=== PATIENT | male | born 1950 | race Caucasian/White ===

== ENCOUNTER → 2017-11-02 09:43 | Outpatient (CLI) | payer MEDICARE, SELFPAY ==
[2017-11-02 12:42] LABS: Absolute Lymphocyte Count 2.71 X10^3/ul (0.83-4.51); Absolute Neutrophil Count 5.1 X10^3/uL (2.0-7.7); Basophil# 0.06 X10^3/uL; Basophil% 0.6 % (0-1); Eosinophil# 0.15 X10^3/uL; Eosinophils% 1.6 % (0-5); Hematocrit 41.1 % (40-54); Hemoglobin 14.5 g/dl (13.0-16.5); Lymphocyte # 2.71 X10^3/ul (4.0); Lymphocyte % 28.6 % (19-41); Mean Corp Hgb Conc 35.3 g/gl (32-36); Mean Corpuscular Hgb 30.3 pg (27.0-32.0); Mean Platelet Vol. 10.8 fl (6.2-12.0); Monocyte# 1.37 X10^3/uL; Monocyte% 14.4 % (0-10); Neutrophil # 5.13 X10^3/uL (2.7-7.7); Neutrophil % 54.1 % (47-70); Platelet Count 251 K/mm3 (150-450); RBC Distribution Width CV 13.2 % (11.6-14.6); RBC Distribution Width SD 40.7 fl (35.1-43.9); Red Blood Count 4.78 M/mm3 (4.6-6.2); White Blood Count 9.5 K/mm3 (4.4-11.0)
[2017-11-02 12:48] LABS: POSITIVE COUNT NO; POSITIVE DIFFERENTIAL NO; POSITIVE MORPHOLOGY NO
[2017-11-02 13:06] LABS: ALB/GLOB Ratio 1.1 RATIO (0.9-2.4); AST(SGOT) 28 U/L (15-37); Alanine Aminotransfer ALT/SGPT 28 U/L (16-61); Albumin, Serum 3.9 g/dL (3.2-5.0); Alkaline Phosphatase 53 U/L (45-117); Anion Gap 7 (5-15); BUN 21 mg/dL (7-18); BUN/Creat Ratio 25.3 RATIO (10-20); Calcium,Total 9.1 mg/dL (8.5-10.1); Chloride 91 mmol/L (98-107); Creatinine, Serum 0.83 mg/dL (0.70-1.30); EST Glomerular Filtration Rate 98 mL/min (>60); Est Glom Filt Rate - Afr Amer 118 mL/min (>60); Globulin 3.7 g/dL (2.2-4.2); Glucose 97 mg/dL (74-106); Potassium 4.3 mmol/L (3.5-5.1); Protein, Total 7.6 g/dL (6.4-8.2); Sodium Level 127 mmol/L (136-145); Thyroid Stim Hormone (TSH) 0.45 uIU/mL (0.358-3.74)
[2017-11-03 10:00] LABS: Vitamin D,25 Hydroxy 14.7 ng/mL (29.95-100.01)
== END ==
PROVIDERS: Family Provider Family Medicine Geriatric Medicine; PCP Family Medicine Geriatric Medicine; Visit Provider Family Medicine Geriatric Medicine
DX: E11.9 Type 2 diabetes mellitus without complications (principal); E55.9 Vitamin D deficiency, unspecified; I10 Essential (primary) hypertension
CPT/HCPCS: 36415; 80053; 82306; 84443; 85025

== ENCOUNTER → 2017-12-14 14:46 | Outpatient (CLI) | payer MEDICARE, MEDICAID, SELFPAY ==
--- NOTE | 2017-12-14 15:16 | US_ITS ---
STUDY: THYROID ULTRASOUND REASON FOR EXAM: Male, 67 years old. Thyroid nodules TECHNIQUE: Ultrasound evaluation of the thyroid was performed with real-time and static alexis-scale imaging. COMPARISON: 11.09.16. FINDINGS: RIGHT LOBE: The right lobe of the thyroid gland measures 5.2 x 2.3 x 2.4 cm. There is a homogeneous echotexture. Hypoechoic nodule noted measuring 7.8 x 9.2 x 5.2 mm. The lesion is cystic with regular margins and austin nodular doppler flow. Solid /cystic nodule noted measuring 5.4 x 5.7 x 5.3 mm. Solid /cystic nodule noted measuring 9.2 x 9.5 x 9.6 mm. This contains calcifications. Cystic nodule noted measuring 5.3 x 2.4 x 7.1 mm. LEFT LOBE: The left lobe of the thyroid gland measures 5.3 x 1.8 x 2.6 cm. There is a homogeneous echotexture. Hypoechoic nodule in the midpole measuring 6 x 5 x 3 mm. The lesion is cystic with regular margins and austin nodular doppler flow. ISTHMUS: The isthmus measures 4 mm. US/Thyroid IMPRESSION: Stable left thyroid nodule. Since the prior study, the right thyroid nodules have slightly enlarged in size. Electronically Signed: Lavon Magallon MD at 19:42 EDT , Service support ,
== END ==
PROVIDERS: Family Provider Family Medicine Geriatric Medicine; PCP Family Medicine Geriatric Medicine; Visit Provider Family Medicine Geriatric Medicine
DX: E04.1 Nontoxic single thyroid nodule (principal)
CPT/HCPCS: 76536

== ENCOUNTER → 2018-05-03 13:52 | Outpatient (CLI) | payer MEDICARE, SELFPAY ==
[2018-05-03 17:16] LABS: Absolute Lymphocyte Count 2.44 X10^3/ul (0.83-4.51); Absolute Neutrophil Count 4.6 X10^3/uL (2.0-7.7); Basophil# 0.04 X10^3/uL; Basophil% 0.5 % (0-1); Eosinophil# 0.22 X10^3/uL; Eosinophils% 2.7 % (0-5); Hematocrit 40.4 % (40-54); Hemoglobin 13.7 g/dl (13.0-16.5); Lymphocyte # 2.44 X10^3/ul (4.0); Lymphocyte % 29.4 % (19-41); Mean Corp Hgb Conc 33.9 g/gl (32-36); Mean Corpuscular Hgb 29.6 pg (27.0-32.0); Mean Corpuscular Volume 87.3 fL (80-94); Mean Platelet Vol. 10.7 fl (6.2-12.0); Monocyte# 0.93 X10^3/uL; Monocyte% 11.2 % (0-10); Neutrophil # 4.61 X10^3/uL (2.7-7.7); Neutrophil % 55.6 % (47-70); Platelet Count 241 K/mm3 (150-450); RBC Distribution Width CV 13.5 % (11.6-14.6); RBC Distribution Width SD 42.1 fl (35.1-43.9); Red Blood Count 4.63 M/mm3 (4.6-6.2); White Blood Count 8.3 K/mm3 (4.4-11.0)
[2018-05-03 17:30] LABS: POSITIVE COUNT NO; POSITIVE DIFFERENTIAL NO; POSITIVE MORPHOLOGY NO
[2018-05-03 17:35] LABS: BUN 16 mg/dL (7-18); Creatinine, Serum 0.82 mg/dL (0.70-1.30); EST Glomerular Filtration Rate 98 mL/min (>60); Glucose 122 mg/dL (74-106)
[2018-05-03 17:36] LABS: AST(SGOT) 29 U/L (15-37); Alanine Aminotransfer ALT/SGPT 29 U/L (16-61); Albumin, Serum 3.6 g/dL (3.2-5.0); Alkaline Phosphatase 53 U/L (45-117); Anion Gap 11 (5-15); BUN/Creat Ratio 19.4 RATIO (10-20); Calcium,Total 8.5 mg/dL (8.5-10.1); Chloride 95 mmol/L (98-107); Est Glom Filt Rate - Afr Amer 119 mL/min (>60); Globulin 3.6 g/dL (2.2-4.2); PSA,Total - Annual Screen 0.82 ng/mL (0.00-4.00); Potassium 4.2 mmol/L (3.5-5.1); Protein, Total 7.2 g/dL (6.4-8.2); Sodium Level 135 mmol/L (136-145); Thyroid Stim Hormone (TSH) 0.39 uIU/mL (0.358-3.74)
[2018-05-03 17:40] LABS: Vitamin D,25 Hydroxy 12.8 ng/mL (29.95-100.01)
== END ==
PROVIDERS: Family Provider Family Medicine Geriatric Medicine; PCP Family Medicine Geriatric Medicine; Visit Provider Family Medicine Geriatric Medicine
DX: E11.9 Type 2 diabetes mellitus without complications (principal); E55.9 Vitamin D deficiency, unspecified; I10 Essential (primary) hypertension; Z12.5 Encounter for screening for malignant neoplasm of prostate
CPT/HCPCS: 36415; 80053; 82306; 84153; 84443; 85025; G0103

== ENCOUNTER 2018-07-09 12:12 | Emergency (ER) | payer MEDICARE, MEDICAID, SELFPAY ==
[2018-07-09 12:13] VITALS: BP 161/83; PULSE 86; RESP 17; TEMP 36.5; O2SAT 97; BMI 29.6
--- NOTE | 2018-07-09 12:37 | ED.VISSUMM ---
- ER Visit Summary Date of Service: 07/09/18 Chief Complaint: Left hand laceration History of Present Illness: The patient is a 68 M history of tdd-okpqkwm-jimnceaee diabetes and hypertension. Patient is right-hand dominant. He was carrying and throwing something away in the trash when they believe a can lacerated the palm of his left hand just proximal to his left small finger. This occurred within the last hour. He is completely unsure when his last tetanus shot was and thinks it may have been 10 years or longer and wants to be updated. No other injuries. Physical Examination: Appearing older male. Vital signs are stable and afebrile. H EENT exam unremarkable. Neck nontender. Lungs there to auscultation bilaterally. Heart regular rhythm no murmur. Abdomen soft nontender. Extremities moves all 4. Neurovascular intact. The palm of his left hand just proximal to the metacarpal phalangeal joint is a V-shaped 4 cm laceration that involves the skin and subcu tissue. There is mild oozing of blood. No pulsatile bleeding. No foreign body. He has full flexion extension all digits of the hand. There is no bony deformity. There is no involvement of the joint. He has normal cap refill intact sensation all digits. This will need to be repaired. Test Results: None Emergency Department Course and Treatment: Tetanus updated. Procedure note: Left hand palmar laceration V-shaped proximal to the left small finger MCP. Approximately 4 cm in length. Locally anesthetized with lidocaine. Cleaned with Shur-Clens washed with saline. Explored. No foreign body noted. Closed using 4 simple interrupted 4-0 Ethilon sutures. Proper hemostasis and wound closure obtained. Patient tolerated procedure well. Nurses will clean and dress the wound. Treatment Plan: Wound care. Suture removal in 10 days. Return if any signs of infection. Disposition: Discharge Impression: Left hand V-shaped laceration of 4 cm with ER repair Tetanus updated This note was generated with [employer] dictation software. It may contain incorrect words, spelling, and punctuation that were not noted in review of the chart prior to signing ED Disposition - Plan for ED Patient: Disposition: Home or Assisted Living Instructions: ED Laceration Hand Referrals: Russell Koenig Chi, MD [Primary Care Provider] - 10 Day for suture removal Additional Instructions: Keep wound clean. And dry. May get wet but then dry thoroughly. Apply antibiotic ointment daily. Tylenol or Motrin for pain. Suture removal in 10 days. Return if any signs of infection such as pus, redness or significant swelling or fever.
--- NOTE | 2018-07-09 12:40 | ED.DEP ---
ED Disposition - Plan for ED Patient: Disposition: Home or Assisted Living Instructions: ED Laceration Hand Prescriptions: Acetaminophen [Tylenol Extra Strength] 500 mg PO Q6H PRN PRN #20 tab PRN Reason: Pain Referrals: Russell Koenig Chi, MD [Primary Care Provider] - 10 Day for suture removal Additional Instructions: Keep wound clean. And dry. May get wet but then dry thoroughly. Apply antibiotic ointment daily. Tylenol or Motrin for pain. Suture removal in 10 days. Return if any signs of infection such as pus, redness or significant swelling or fever.
[2018-07-09] MEDS: Diphth,Pertuss(Acell),Tet Vac 0.5 ML Vial IM (13:00)
== END 2018-07-09 14:49 | disposition home or self-care (01) ==
LOC: ED 13:10
PROVIDERS: Emergency Provider Emergency Medicine; Family Provider Family Medicine Geriatric Medicine; PCP Family Medicine Geriatric Medicine
DX: S61.412A Laceration without foreign body of left hand, initial encounter (principal); W45.8XXA Other foreign body or object entering through skin, initial encounter; Y93.89 Activity, other specified; Y92.9 Unspecified place or not applicable; I25.2 Old myocardial infarction; I10 Essential (primary) hypertension; E11.9 Type 2 diabetes mellitus without complications; Z79.899 Other long term (current) drug therapy; Z87.891 Personal history of nicotine dependence
CPT/HCPCS: 12002; 90715; 99283

== ENCOUNTER → 2018-11-01 | Outpatient (CLI) | payer MEDICARE, SELFPAY ==
[2018-11-01 12:24] LABS: Absolute Lymphocyte Count 2.08 X10^3/ul (0.83-4.51); Absolute Neutrophil Count 4.8 X10^3/uL (2.0-7.7); Basophil# 0.05 X10^3/uL; Basophil% 0.6 % (0-1); Eosinophil# 0.13 X10^3/uL; Eosinophils% 1.6 % (0-5); Hematocrit 40.7 % (40-54); Lymphocyte # 2.08 X10^3/ul (4.0); Lymphocyte % 25.9 % (19-41); Mean Corp Hgb Conc 34.4 g/gl (32-36); Mean Corpuscular Hgb 29.4 pg (27.0-32.0); Mean Corpuscular Volume 85.3 fL (80-94); Mean Platelet Vol. 10.5 fl (6.2-12.0); Monocyte% 11.2 % (0-10); Neutrophil # 4.84 X10^3/uL (2.7-7.7); Neutrophil % 60.3 % (47-70); Platelet Count 232 K/mm3 (150-450); RBC Distribution Width CV 13.4 % (11.6-14.6); RBC Distribution Width SD 41.8 fl (35.1-43.9); Red Blood Count 4.77 M/mm3 (4.6-6.2)
[2018-11-01 12:33] LABS: POSITIVE COUNT NO; POSITIVE DIFFERENTIAL NO; POSITIVE MORPHOLOGY NO
[2018-11-01 12:36] LABS: Vitamin D,25 Hydroxy 13.8 ng/mL (29.95-100.01)
[2018-11-01 12:44] LABS: ALB/GLOB Ratio 1.1 RATIO (0.9-2.4); AST(SGOT) 23 U/L (15-37); Alanine Aminotransfer ALT/SGPT 23 U/L (16-61); Albumin, Serum 3.8 g/dL (3.2-5.0); Alkaline Phosphatase 58 U/L (45-117); Anion Gap 10 (5-15); BUN 20 mg/dL (7-18); Chloride 94 mmol/L (98-107); Creatinine, Serum 0.91 mg/dL (0.70-1.30); EST Glomerular Filtration Rate 88 mL/min (>60); Est Glom Filt Rate - Afr Amer 106 mL/min (>60); Globulin 3.6 g/dL (2.2-4.2); Glucose 103 mg/dL (74-106); Potassium 4.1 mmol/L (3.5-5.1); Protein, Total 7.4 g/dL (6.4-8.2); Sodium Level 129 mmol/L (136-145); Thyroid Stim Hormone (TSH) 0.38 uIU/mL (0.358-3.74)
== END | disposition home or self-care (01) ==
LOC: POLAB3 09:24
PROVIDERS: Family Provider Family Medicine Geriatric Medicine; PCP Family Medicine Geriatric Medicine; Visit Provider Family Medicine Geriatric Medicine
DX: E11.9 Type 2 diabetes mellitus without complications (principal); E55.9 Vitamin D deficiency, unspecified; I10 Essential (primary) hypertension
CPT/HCPCS: 36415; 80053; 82306; 84443; 85025

== ENCOUNTER → 2018-11-02 11:06 | Outpatient (CLI) | payer MEDICARE, SELFPAY ==
[2018-11-02 13:02] LABS: Urine Sodium 98 mmol/L (Not Establ.)
[2018-11-02 13:08] LABS: Osmolality, Serum 273 mOsm/KG (280-301)
[2018-11-02 13:10] LABS: Osmolality, Urine 555 mOsm/KG
== END ==
PROVIDERS: Family Provider Family Medicine Geriatric Medicine; PCP Family Medicine Geriatric Medicine; Visit Provider Family Medicine Geriatric Medicine
DX: E87.1 Hypo-osmolality and hyponatremia (principal)
CPT/HCPCS: 82436; 83930; 83935; 84133; 84300

== ENCOUNTER → 2018-11-14 09:35 | Outpatient (CLI) | payer MEDICARE, SELFPAY ==
[2018-11-14 13:00] LABS: Anion Gap 5 (5-15); BUN 21 mg/dL (7-18); BUN/Creat Ratio 28.4 RATIO (10-20); Calcium,Total 9.2 mg/dL (8.5-10.1); Chloride 97 mmol/L (98-107); Creatinine, Serum 0.74 mg/dL (0.70-1.30); EST Glomerular Filtration Rate 111 mL/min (>60); Est Glom Filt Rate - Afr Amer 135 mL/min (>60); Glucose 116 mg/dL (74-106); Potassium 4.1 mmol/L (3.5-5.1); Sodium Level 131 mmol/L (136-145)
== END ==
PROVIDERS: Family Provider Family Medicine Geriatric Medicine; PCP Family Medicine Geriatric Medicine; Visit Provider Family Medicine Geriatric Medicine
DX: E87.1 Hypo-osmolality and hyponatremia (principal)
CPT/HCPCS: 36415; 80048

== ENCOUNTER → 2018-12-17 10:52 | Outpatient (CLI) | payer MEDICARE, SELFPAY ==
[2018-12-17 13:02] LABS: Anion Gap 9 (5-15); BUN 16 mg/dL (7-18); BUN/Creat Ratio 18.8 RATIO (10-20); Calcium,Total 8.7 mg/dL (8.5-10.1); Chloride 98 mmol/L (98-107); Creatinine, Serum 0.85 mg/dL (0.70-1.30); EST Glomerular Filtration Rate 95 mL/min (>60); Est Glom Filt Rate - Afr Amer 114 mL/min (>60); Glucose 137 mg/dL (74-106); Potassium 4.3 mmol/L (3.5-5.1); Sodium Level 136 mmol/L (136-145)
== END ==
PROVIDERS: Family Provider Family Medicine Geriatric Medicine; PCP Family Medicine Geriatric Medicine; Visit Provider Family Medicine Geriatric Medicine
DX: E87.1 Hypo-osmolality and hyponatremia (principal)
CPT/HCPCS: 36415; 80048

== ENCOUNTER → 2019-03-04 13:43 | Outpatient (CLI) | payer MEDICARE, SELFPAY ==
--- NOTE | 2019-03-04 13:46 | US_ITS ---
STUDY: THYROID ULTRASOUND REASON FOR EXAM: Male, 69 years old. Thyroid nodule. TECHNIQUE: Ultrasound evaluation of the thyroid was performed with real-time and static alexis-scale imaging. COMPARISON: Comparison is made with prior examination dated December 14, 2017. FINDINGS: RIGHT LOBE: The right lobe of the thyroid gland is enlarged and measures 5.3 cm x 2.2 cm x 2.7 cm. There is a homogeneous echotexture. Once again, there are 4 subcentimeter nodules in the right lobe of the thyroid area involving the upper, mid and lower poles. These are unchanged. LEFT LOBE: The left lobe of the thyroid gland is slightly enlarged and measures 5.2 cm x 2.7 cm x 2.4 cm. There is a homogeneous echotexture. Stable 6 mm x 5 mm x 4 mm hypoechoic predominantly cystic nodule in the mid pole region. ISTHMUS: The isthmus measures 5.0 mm. The regional lymph nodes are normal. US/Thyroid IMPRESSION: Stable bilateral thyroid nodules more prominent on the left side. Mild degree of thyromegaly. Electronically Signed: Urban Castillo, at 9:17 EDT , Service support ,
--- NOTE | 2019-03-04 14:23 | CT_ITS ---
STUDY: CT SOFT TISSUE NECK WITH CONTRAST REASON FOR EXAM: Male, 69 years old. Submandibular lymphadenopathy in evaluation RADIATION DOSAGE (If Supplied By Facility): CTDIvol = ( 21.16 ) mGy, DLP = ( 649.84 ) mGycm TECHNIQUE: The patient was scanned in a multi-detector CT scanner. High resolution transaxial imaging was performed following intravenous administration of IV Isovue 370 100ml. Sagittal and coronal images were reconstructed. Individualized dose optimization techniques were used for this CT. COMPARISON: None. FINDINGS: Submandibular glands are normal. Segment space is clear without masses, lymphadenopathy, fluid collections or inflammatory change. Parotid and sublingual glands are normal. Basal brain is unremarkable. Paranasal sinuses are clear. Orbits are intact. There is extensive multifocal dental disease. Pharyngeal mucosal surfaces are intact without exophytic masses. Airway is patent. There is a 1 cm hypodense posterior right thyroid lobe nodule, and 6 mm anterior nodule. Refer to ultrasonography. Jugulars and carotids are patent. There is reversal of cervical lordosis with mild age-appropriate spondylosis and thecal sac compression at C5-C6 and C6-C7. Lung apices are clear. CT/Soft Tissue Neck WITH Contrast IMPRESSION: 1. No cervical lymphadenopathy. No submandibular lymphadenopathy. Electronically Signed: Renata Collins, at 17:31 EDT Tel , Service support ,
[2019-03-04 14:41] LABS: CREATININE FINGERSTICK 0.8 mg/dL (0.70-1.30); EGFR FINGERSTICK > 60.0000 mL/min (>60)
== END ==
PROVIDERS: Family Provider Family Medicine Geriatric Medicine; PCP Family Medicine Geriatric Medicine; Referring Provider Family Medicine Geriatric Medicine; Visit Provider Family Medicine Geriatric Medicine
DX: E04.1 Nontoxic single thyroid nodule (principal); R59.9 Enlarged lymph nodes, unspecified
CPT/HCPCS: 70491; 76536; Q9967

== ENCOUNTER → 2019-05-20 11:00 | Outpatient (CLI) | payer MEDICARE, SELFPAY ==
--- NOTE | 2019-05-20 11:37 | RAD_ITS ---
STUDY: X-RAY - LUMBOSACRAL SPINE REASON FOR EXAM: Male, 69 years old. MULTIPLE PREVIOUS FALLS. TECHNIQUE: 6 view(s) of the lumbosacral spine were obtained. COMPARISON: None FINDINGS: Normal lumbar lordosis. There is no substantial scoliosis. There is normal alignment of the vertebrae. There is multilevel endplate spondylosis of the lumbar vertebrae. There is multi-level degenerative disc disease with multi-level disc space narrowing. Normal bilateral sacral ala, sacroiliac joints, and visualized sacrum. There is atherosclerotic calcification of the abdominal aorta without a demonstrated aneurysm. RAD/L/S Spine w Bend Min 6 Vw IMPRESSION: Degenerative changes of the spine, as detailed above. Electronically Signed: Urban Castillo, at 12:54 EST , Service support ,
[2019-05-20 12:42] LABS: Absolute Lymphocyte Count 2.54 X10^3/uL (0.83-4.51); Absolute Neutrophil Count 5.5 X10^3/uL (2.0-7.7); Basophil# 0.07 X10^3/uL; Basophil% 0.7 % (0-1); Eosinophil# 0.18 X10^3/uL; Eosinophils% 1.8 % (0-5); Hematocrit 38.6 % (40-54); Hemoglobin 12.9 g/dL (13.0-16.5); Lymphocyte # 2.54 X10^3/ul (4.0); Lymphocyte % 26.1 % (19-41); Mean Corp Hgb Conc 33.4 g/dL (32-36); Mean Corpuscular Hgb 28.4 pg (27.0-32.0); Mean Corpuscular Volume 84.8 fL (80-94); Mean Platelet Vol. 10.8 fl (6.2-12.0); Monocyte# 1.39 X10^3/uL; Monocyte% 14.3 % (0-10); NRBC Flagged by Analyzer 0 % (0-5); Neutrophil # 5.49 X10^3/uL (2.7-7.7); Neutrophil % 56.5 % (47-70); Platelet Count 239 K/mm3 (150-450); RBC Distribution Width CV 12.9 % (11.6-14.6); RBC Distribution Width SD 39.9 fl (35.1-43.9); Red Blood Count 4.55 M/mm3 (4.6-6.2); White Blood Count 9.7 K/mm3 (4.4-11.0)
[2019-05-20 13:06] LABS: Vitamin D,25 Hydroxy 19.5 ng/mL (29.95-100.01)
[2019-05-20 13:14] LABS: AST(SGOT) 22 U/L (15-37); Alanine Aminotransfer ALT/SGPT 27 U/L (16-61); Albumin, Serum 3.7 g/dL (3.2-5.0); Alkaline Phosphatase 51 U/L (45-117); Anion Gap 7 (5-15); BUN 24 mg/dL (7-18); BUN/Creat Ratio 29.3 RATIO (10-20); Chloride 92 mmol/L (98-107); Creatinine, Serum 0.82 mg/dL (0.70-1.30); EST Glomerular Filtration Rate 99 mL/min (>60); Est Glom Filt Rate - Afr Amer 119 mL/min (>60); Globulin 3.6 g/dL (2.2-4.2); Glucose 106 mg/dL (74-106); Potassium 4.3 mmol/L (3.5-5.1); Protein, Total 7.3 g/dL (6.4-8.2); Sodium Level 127 mmol/L (136-145); Thyroid Stim Hormone (TSH) 0.47 uIU/mL (0.358-3.74)
== END ==
PROVIDERS: Family Provider Family Medicine Geriatric Medicine; PCP Family Medicine Geriatric Medicine; Referring Provider Family Medicine Geriatric Medicine; Visit Provider Family Medicine Geriatric Medicine
DX: E11.9 Type 2 diabetes mellitus without complications (principal); E55.9 Vitamin D deficiency, unspecified; I10 Essential (primary) hypertension; Z12.5 Encounter for screening for malignant neoplasm of prostate; R29.6 Repeated falls
CPT/HCPCS: 36415; 72114; 80053; 82306; 84153; 84443; 85025; G0103

== ENCOUNTER 2019-05-20 18:00 | Emergency (ER) | payer MEDICARE, SELFPAY ==
[2019-05-20 18:01] VITALS: PULSE 109; RESP 18; TEMP 36.6; O2SAT 96; BMI 25.2
[2019-05-20] MEDS: MethylPREDNISolone 125 MG/2 ML Vial IV (18:18)
[2019-05-20] MEDS: DiphenhydrAMINE 50 MG/ML Syringe IV (18:18)
[2019-05-20] MEDS: Famotidine 200 MG/20 ML MDV 20 MG in 0.9% Normal Saline (Pres. free 8 ML 300 MG IV (18:30)
[2019-05-20 19:00] VITALS: BP 144/76; PULSE 98; RESP 18; O2SAT 97
--- NOTE | 2019-05-20 19:13 | ED.DCSUM_ITS ---
History of Present Illness Chief Complaint: Allergic Reaction Informant: Patient, Nursing Unit Coordinator Onset: Today Narrative: Patient is a 69-year-old male presenting from skilled nursing for concern of allergic reaction. Patient developed an urticarial rash today and felt that he was having a hard time swallowing. He was eating soup and drinking soda when this started. Is not have a known history of any allergies. He did have a doctor's visit today but we are not aware of him receiving any new medications. Patient states the rash is itchy. He currently denies any difficulty swallowing. He denies any difficulty breathing. No vomiting or diarrhea. No other complaints at this time. Past Medical History - Allergies and Home Meds Allergies/Adverse Reactions: Allergies No Known Allergies Allergy (Verified 07/09/18 12:13) Primary Care Physician: Russell Koenig Chi, MD [Primary Care Provider] - Past Medical History: - - Diabetes, anxiety, hypertension, psychiatric disorder Surgical History: no surgical history Lives: - - [facility] Smoking Status: Former smoker Review of Systems General: Denies: Chills, Fever, Sweats Eyes: Denies: Visual changes - bilaterally, Diplopia ENT: Reports: Sore throat. Denies: Rhinorrhea Cardiovascular: Denies: Chest pain, Palpitations Respiratory: Denies: Dyspnea, Cough, Dyspnea on exertion Gastrointestinal: Denies: Abdominal pain, Nausea, Vomiting, Diarrhea, Melena, Hematochezia Genitourinary: Denies: Dysuria, Hematuria, Frequency Musculoskeletal: Denies: Back pain, Extremity Pain Skin: Reports: Rash. Denies: Wounds Neurological: Denies: Headache, Weakness, Numbness Physical Exam Vital Signs/Narrative: Vital Signs Temp Pulse Resp Pulse Ox 05/20/19 18:01 97.9 F 109 H 18 96 Inital Vital Signs reviewed: Yes General: Well nourished, Well developed, No Acute Distress Head: Normocephalic, Atraumatic Eyes: Perrl, EOMI ENT: Moist mucous membranes, No rhinorrhea, TM's clear, - - Normal oropharynx with no soft tissue swelling Neck: Supple, Nontender Cardiovascular: Regular rate, Regular rhythm, No murmurs Respiratory: No distress, CTA bilaterally, Chest nontender. Negative for: Wheezing Abdomen: Soft, Nontender, Nondistended, Normal bowel sounds Back: Nontender, Normal Inspection Extremities: Nontender, No edema Skin: Normal color, Rash - Diffuse maculopapular most pronounced on arms extending up to axilla as well as around neck Neurological: Alert, Oriented x3, Cranial nerves II-XII grossly intact, Normal Strength, Normal Sensation Psychological: Normal affect, Normal Mood Diagnostic/Tx/Re-eval - Medical Decision Making Patient is evaluated for an allergic reaction. He has hives. He feels that he is having trouble swallowing. Patient is handling his secretions and his voice is normal. Patient is given cocktail including Benadryl, Pepcid and Solu- Medrol. He does not have wheezing or other signs of respiratory involvement. I do not suspect anaphylaxis at this time. He is not given epinephrine. Patient is monitored for some time and improves. He will be discharged home on a course of prednisone. The exact cause of his allergic reaction is not clear. Patient is discharged back to his skilled nursing. Patient is counseled on signs and symptoms requiring return to the emergency room. Patient verbalizes agreement and understand this plan. Patient discharged home in stable and improved condition. ED Disposition - Plan for ED Patient: Disposition: Home or Assisted Living Diagnosis: Allergic reaction, Hives Instructions: ALLERGIC REACTION, Other (General), Hives Prescriptions: Prednisone [Deltasone] 40 mg PO DAILY #10 tab Prescription Printed Referrals: Russell Koenig Chi, MD [Primary Care Provider] - Additional Instructions: You appear to have had an allergic reaction today. Is not clear what the cause is. Please follow-up with your primary care doctor for further allergy testing.
[2019-05-20 20:00] VITALS: BP 140/81; PULSE 103; RESP 20; O2SAT 97
[2019-05-20 20:43] VITALS: BP 140/82; PULSE 99; RESP 16; O2SAT 99
== END 2019-05-20 20:44 | disposition home or self-care (01) ==
PROVIDERS: Emergency Provider Emergency Medicine; Family Provider Family Medicine Geriatric Medicine; PCP Family Medicine Geriatric Medicine
DX: L50.0 Allergic urticaria (principal); Z87.891 Personal history of nicotine dependence; I10 Essential (primary) hypertension; E11.9 Type 2 diabetes mellitus without complications; F41.9 Anxiety disorder, unspecified; E55.9 Vitamin D deficiency, unspecified; R29.6 Repeated falls; Z12.5 Encounter for screening for malignant neoplasm of prostate; Z79.84 Long term (current) use of oral hypoglycemic drugs
CPT/HCPCS: 36415; 72114; 80053; 82306; 84153; 84443; 85025; 96365; 96366; 96375; 99284; A4216; G0103; J3490

== ENCOUNTER → 2019-05-22 11:46 | Outpatient (CLI) | payer MEDICARE, SELFPAY ==
[2019-05-20 18:01] VITALS: BMI 25.2
[2019-05-25 03:06] LABS: Almond 0.73 kU/L (Class II); Alternaria tenuis <0.10 kU/L (Class 0); Ash, White 0.92 kU/L (Class II); Aspergillus fumigatus <0.10 kU/L (Class 0); Barley, Whole Grain 0.67 kU/L (Class II); Beef <0.10 kU/L (Class 0); Bermuda Grass 0.67 kU/L (Class II); Birch 0.59 kU/L (Class II); Black Walnut 0.72 kU/L (Class II); Carrot 0.65 kU/L (Class II); Casein <0.10 kU/L (Class 0); Cashew 0.23 kU/L (Class 0/I); Cat Hair / Dander,Stand <0.10 kU/L (Class 0); Cedar, Mountain 0.93 kU/L (Class II); Chicken 0.23 kU/L (Class 0/I); Chocolate <0.10 kU/L (Class 0); Cladosporium herbarum <0.10 kU/L (Class 0); Clam 3.16 kU/L (Class III); Cockroach, American 4.61 kU/L (Class IV); Codfish <0.10 kU/L (Class 0); Corn 0.66 kU/L (Class II); Cottonwood 1.02 kU/L (Class II); Crab 5.86 kU/L (Class IV); D farinae Mite 3.27 kU/L (Class III); D pteronyssinus 2.11 kU/L (Class III); Dog Epithelia <0.10 kU/L (Class 0); Egg, White 0.32 kU/L (Class I); Egg, Yolk 0.13 kU/L (Class 0/I); Elm, American White 0.78 kU/L (Class II); Garlic 0.81 kU/L (Class II); Gluten 0.11 kU/L (Class 0/I); Hazelnut/Filbert 0.66 kU/L (Class II); Immunoglobulin E 478 IU/mL (6-495); Lobster 4.82 kU/L (Class IV); Milk (Cow) <0.10 kU/L (Class 0); Mulberry, White 0.46 kU/L (Class I); Oak, White 0.89 kU/L (Class II); Oat 0.77 kU/L (Class II); Onion 0.84 kU/L (Class II); Orange 0.64 kU/L (Class II); Pea 0.36 kU/L (Class I); Pecan 0.11 kU/L (Class 0/I); Pigweed, Rough 0.49 kU/L (Class I); Pork <0.10 kU/L (Class 0); Potato, White 0.62 kU/L (Class II); Ragweed, Short/Common 0.78 kU/L (Class II); Rice 0.88 kU/L (Class II); Rye 0.61 kU/L (Class II); Salmon <0.10 kU/L (Class 0); Sheep Sorrel 0.59 kU/L (Class II); Shrimp 5.64 kU/L (Class IV); Strawberry 0.76 kU/L (Class II); Sycamore, American 1.03 kU/L (Class II); Timothy Grass 0.78 kU/L (Class II); Tuna 0.12 kU/L (Class 0/I); Walnut, (Food) 0.57 kU/L (Class II); Wheat 0.83 kU/L (Class II); Yeast <0.10 kU/L (Class 0)
[2019-05-25 15:29] LABS: Apple 0.43 kU/L (Class I); Peanut 0.78 kU/L (Class II)
[2019-05-25 15:30] LABS: Mouse Urine <0.10 kU/L (Class 0)
[2019-05-26 03:06] LABS: Alternaria alternata <0.10 kU/L (Class 0); Aspergillus fumigatus <0.10 kU/L (Class 0); Bahia Grass 0.66 kU/L (Class II); Banana 0.63 kU/L (Class II); Bluegrass, Kentucky 0.74 kU/L (Class II); Cat Hair/Dander, Standard <0.10 kU/L (Class 0); Cedar, Mountain 0.85 kU/L (Class II); Celery 0.67 kU/L (Class II); Cheddar Cheese <0.10 kU/L (Class 0); Cladosporium herbarum <0.10 kU/L (Class 0); Cockroach, American 1.62 kU/L (Class III); D farinae Mite 3.16 kU/L (Class III); D pteronyssinus 1.76 kU/L (Class III); Dog Epithelia <0.10 kU/L (Class 0); Elm, American White 0.72 kU/L (Class II); Hazelnut Tree 0.29 kU/L (Class 0/I); Hickory, White 0.63 kU/L (Class II); Johnson Grass 0.74 kU/L (Class II); Lactalbumin, Alpha <0.10 kU/L (Class 0); Lettuce 0.52 kU/L (Class I); Maple/Box Elder 0.86 kU/L (Class II); Mucor racemosus <0.10 kU/L (Class 0); Mugwort 0.48 kU/L (Class I); Mulberry, White 0.51 kU/L (Class I); Nettle 0.62 kU/L (Class II); Oak, White 0.76 kU/L (Class II); Peach 0.46 kU/L (Class I); Penicillium chrysogen <0.10 kU/L (Class 0); Pigweed, Rough 0.42 kU/L (Class I); Plantain, English 0.63 kU/L (Class II); Ragweed, Short/Common 0.63 kU/L (Class II); Sheep Sorrel(Dock) 0.53 kU/L (Class I); Stemphylium herbarum <0.10 kU/L (Class 0); Sweet Gum 0.73 kU/L (Class II); Sycamore, American 0.96 kU/L (Class II)
[2019-05-26 14:10] LABS: Turkey 1.21 kU/L (Class II)
== END ==
PROVIDERS: Family Provider Family Medicine Geriatric Medicine; PCP Family Medicine Geriatric Medicine; Visit Provider Family Medicine Geriatric Medicine
DX: L20.89 Other atopic dermatitis (principal)
CPT/HCPCS: 36415; 82785; 86003

== ENCOUNTER → 2019-07-01 12:00 | Outpatient (CLI) | payer MEDICARE, SELFPAY ==
[2019-07-01 12:46] LABS: Absolute Lymphocyte Count 2.08 X10^3/uL (0.83-4.51); Absolute Neutrophil Count 4.2 X10^3/uL (2.0-7.7); Basophil# 0.05 X10^3/uL; Basophil% 0.7 % (0-1); Eosinophil# 0.07 X10^3/uL; Hematocrit 38.7 % (40-54); Hemoglobin 13.3 g/dL (13.0-16.5); Lymphocyte # 2.08 X10^3/ul (4.0); Lymphocyte % 28.6 % (19-41); Mean Corp Hgb Conc 34.4 g/dL (32-36); Mean Corpuscular Hgb 28.6 pg (27.0-32.0); Mean Corpuscular Volume 83.2 fL (80-94); Mean Platelet Vol. 10.4 fl (6.2-12.0); Monocyte# 0.89 X10^3/uL; Monocyte% 12.2 % (0-10); NRBC Flagged by Analyzer 0 % (0-5); Neutrophil # 4.15 X10^3/uL (2.7-7.7); Platelet Count 259 K/mm3 (150-450); RBC Distribution Width CV 12.8 % (11.6-14.6); RBC Distribution Width SD 38.6 fl (35.1-43.9); Red Blood Count 4.65 M/mm3 (4.6-6.2); White Blood Count 7.3 K/mm3 (4.4-11.0)
[2019-07-01 13:05] LABS: Erythrocyte Sedimentation Rate 22 mm/hr (0-20)
[2019-07-01 13:17] LABS: AST(SGOT) 24 U/L (15-37); Alanine Aminotransfer ALT/SGPT 23 U/L (16-61); Albumin, Serum 3.5 g/dL (3.2-5.0); Alkaline Phosphatase 61 U/L (45-117); Anion Gap 8 (5-15); BUN 16 mg/dL (7-18); BUN/Creat Ratio 19.3 RATIO (10-20); CRP < 2.90 mg/L (0.0-3.0); Calcium,Total 8.6 mg/dL (8.5-10.1); Chloride 93 mmol/L (98-107); Creatinine, Serum 0.83 mg/dL (0.70-1.30); EST Glomerular Filtration Rate 98 mL/min (>60); Est Glom Filt Rate - Afr Amer 118 mL/min (>60); Globulin 3.6 g/dL (2.2-4.2); Glucose 120 mg/dL (74-106); Potassium 4.5 mmol/L (3.5-5.1); Protein, Total 7.1 g/dL (6.4-8.2); Sodium Level 128 mmol/L (136-145); Thyroid Stim Hormone (TSH) 0.19 uIU/mL (0.358-3.74)
[2019-07-02 11:58] LABS: T3 Uptake 41 % (33-40); T4 Free Direct 1.27 ng/dL (0.76-1.46)
== END ==
PROVIDERS: PCP Family Medicine Geriatric Medicine; Visit Provider Family Medicine Geriatric Medicine
DX: I10 Essential (primary) hypertension (principal); M35.3 Polymyalgia rheumatica
CPT/HCPCS: 36415; 80053; 84443; 85025; 85652; 86140

== ENCOUNTER → 2019-07-01 12:41 | Outpatient (CLI) | payer MEDICARE, SELFPAY ==
--- NOTE | 2019-07-01 12:44 | CT_ITS ---
STUDY: CT BRAIN WITHOUT CONTRAST REASON FOR EXAM: Male, 69 years old. APRAXIA, BALANCE ISSUES, FREQUENT FALLS, TROUBLE WITH SALES OFFICER, HX-HTN,DB RADIATION DOSAGE (If Supplied By Facility): CTDIvol = ( 60.81 ) mGy, DLP = ( 1135.5 ) mGycm TECHNIQUE: Transaxial CT imaging of the brain was performed without administration of intravenous contrast material. Individualized dose optimization techniques were used for this CT. COMPARISON: No relevant priors. FINDINGS: Normal soft tissue structures. Normal calvarium. There is mild cerebral atrophy with widening of the extra-axial spaces and ventricular dilatation. There are areas of decreased attenuation within the white matter tracts of the supratentorial brain, consistent with microvascular disease changes. Normal basal ganglia and thalami. Normal brainstem. Normal cerebellum. There is no intracranial hemorrhage. There are no findings of an acute ischemic infarction. Atherosclerotic calcification of the cavernous portions of the internal carotid arteries bilaterally. Normal visualized paranasal sinuses. CT/Brain/Head without Contrast IMPRESSION: Chronic involutional changes of the brain. Electronically Signed: Urban Castillo, at 14:07 EST , Service support ,
--- NOTE | 2019-07-01 12:57 | MRI_ITS ---
STUDY: MRI LUMBAR SPINE WITH AND WITHOUT CONTRAST REASON FOR EXAM: Male, 69 years old. FECAL INCONTENENCE APRAXIA TECHNIQUE: Standardized fat and water weighted pulse sequences were obtained in the sagittal and axial planes. IV DOTAREM 15 CC was administered for the contrast portion of the examination. COMPARISON: X-ray 05/20/2019 FINDINGS: T12-L1: Normal endplates. Normal disc height, hydration and morphology. Normal bilateral facet joints. Normal central canal and bilateral lateral recesses. Normal bilateral intervertebral neural foramina. Normal lumbar lordosis. There is no substantial scoliosis. Normal conus medullaris that terminates at the L1. L1-2: Normal endplates. Normal disc height, hydration and morphology. Normal bilateral facet joints. Normal central canal and bilateral lateral recesses. Normal bilateral intervertebral neural foramina. L2-3: Normal endplates. Normal disc height, hydration and morphology. Normal bilateral facet joints. Normal central canal and bilateral lateral recesses. Normal bilateral intervertebral neural foramina. L3-4: Normal endplates. Normal disc height, hydration and morphology. Normal bilateral facet joints. Normal central canal and bilateral lateral recesses. Normal bilateral intervertebral neural foramina. L4-5: Moderate bilateral facet hypertrophy. Moderate broad disc protrusion produces moderate spinal stenosis with mild bilateral lateral recess stenosis and moderate bilateral neural foraminal stenosis with abutment of the exiting L4 nerve roots bilaterally. Some enhancement posterior to the thecal sac may represent laminotomy. No mass effect or nerve root encasement. L5-S1: Mild broad disc protrusion produces mild spinal stenosis and mild bilateral neural foraminal stenosis. Normal visualized sacral ala. Normal visualized paraspinous soft tissue structures. MRI/Spine Lumbar W/WO Contrast IMPRESSION: Focal degenerative disc disease L4/L5 with possible postsurgical changes. Electronically Signed: Yeison Boyd MD at 16:51 EST Tel , Service support ,
== END ==
PROVIDERS: PCP Family Medicine Geriatric Medicine; Referring Provider Family Medicine Geriatric Medicine; Visit Provider Family Medicine Geriatric Medicine
DX: R48.8 Other symbolic dysfunctions (principal); R15.9 Full incontinence of feces; I10 Essential (primary) hypertension; M35.3 Polymyalgia rheumatica
CPT/HCPCS: 36415; 70450; 72158; 80053; 84439; 84443; 84479; 85025; 85652; 86140; A9575

== ENCOUNTER 2019-07-25 11:00 | Outpatient (RCR) | payer MEDICARE, SELFPAY ==
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
== END 2019-07-25 19:00 | disposition home or self-care (01) ==
LOC: PT 11:00
PROVIDERS: PCP Family Medicine Geriatric Medicine; Referring Provider Family Medicine Geriatric Medicine; Visit Provider Family Medicine Geriatric Medicine
DX: M48.061 Spinal stenosis, lumbar region without neurogenic claudication (principal)
CPT/HCPCS: 97110; 97162

== ENCOUNTER 2019-10-31 20:55 | Inpatient (IN) | payer MEDICARE, SELFPAY ==
[2019-10-31 20:59] VITALS: BP 82/51; PULSE 113; RESP 20; TEMP 37.7; O2SAT 93; BMI 27.2
[2019-10-31] MEDS: 0.9% Normal Saline 1,000 ML 1000 ML IV (21:35)
[2019-10-31 21:55] LABS: Absolute Lymphocyte Count 0.68 X10^3/uL (0.83-4.51); Absolute Neutrophil Count 13.1 X10^3/uL (2.0-7.7); Basophil# 0.05 X10^3/uL; Basophil% 0.3 % (0-1); Eosinophil# 0.02 X10^3/uL; Eosinophils% 0.1 % (0-5); Hematocrit 41.1 % (40-54); Hemoglobin 14.1 g/dL (13.0-16.5); Lymphocyte # 0.68 X10^3/ul (4.0); Lymphocyte % 4.5 % (19-41); Mean Corp Hgb Conc 34.3 g/dL (32-36); Mean Corpuscular Hgb 27.9 pg (27.0-32.0); Mean Corpuscular Volume 81.4 fL (80-94); Mean Platelet Vol. 10.4 fl (6.2-12.0); Monocyte# 1.02 X10^3/uL; Monocyte% 6.8 % (0-10); NRBC Flagged by Analyzer 0 % (0-5); Neutrophil # 13.13 X10^3/uL (2.7-7.7); Neutrophil % 87.8 % (47-70); Platelet Count 324 K/mm3 (150-450); RBC Distribution Width CV 12.9 % (11.6-14.6); RBC Distribution Width SD 38.2 fl (35.1-43.9); Red Blood Count 5.05 M/mm3 (4.6-6.2)
[2019-10-31 22:05] VITALS: BP 78/49; PULSE 96; RESP 18; TEMP 37.2; O2SAT 96
[2019-10-31 22:06] LABS: ALB/GLOB Ratio 1.1 RATIO (0.9-2.4); AST(SGOT) 23 U/L (15-37); Alanine Aminotransfer ALT/SGPT 19 U/L (16-61); Albumin, Serum 3.9 g/dL (3.2-5.0); Alkaline Phosphatase 68 U/L (45-117); Anion Gap 16 (5-15); BUN 21 mg/dL (7-18); BUN/Creat Ratio 15.1 RATIO (10-20); Chloride 93 mmol/L (98-107); Creatinine, Serum 1.39 mg/dL (0.70-1.30); EST Glomerular Filtration Rate 54 mL/min (>60); Est Glom Filt Rate - Afr Amer 65 mL/min (>60); Estimated Creatinine Clearance 46.23 ml/min; Globulin 3.6 g/dL (2.2-4.2); Glucose 192 mg/dL (74-106); Protein, Total 7.5 g/dL (6.4-8.2); Sodium Level 129 mmol/L (136-145)
--- NOTE | 2019-10-31 22:10 | EKG12_ITS ---
Test Reason : WEAKNESS Blood Pressure : / mmHG Vent. Rate : 097 BPM Atrial Rate : 097 BPM P-R Int : 208 ms QRS Dur : 086 ms QT Int : 338 ms P-R-T Axes : 045 048 052 degrees QTc Int : 429 ms Normal sinus rhythm Normal ECG Confirmed by ANITA SNYDER MD ([id number]), desk editor SHERRILL LANDAVERDE ([id number]) on 11/05/2019 10:47:14 AM Referred By: NORA/JASON Confirmed By:ANITA SNYDER MD
[2019-10-31 22:13] VITALS: BP 100/62; TEMP 37.2; O2SAT 94
[2019-10-31 22:21] LABS: Bacteria 0 SEEN /hpf (None Seen); Mucous, Urine 0 SEEN /hpf (<or=2+); Red Blood Cells-Urine 0 SEEN /hpf (0-5); White Blood Cells 0 SEEN /hpf (0-5)
[2019-10-31 22:23] LABS: Color, Urine Yellow (Yellow); Glucose, Dipstick Normal (Normal); Ketone-Dipstick Negative (Negative); Leukocyte Esterase-Dipstick Negative /ul (Negative); Nitrite-Dipstick Negative (Negative); Occult Blood-Urine Negative /ul (Negative); Protein-Dipstick Negative (Negative); Urine Bilirubin Dipstick Negative (Negative); Urine Clarity Sl. Cloudy (Clear); Urine Urobilinogen Normal (Normal); Urine pH 6.5 (5.0 - 8.0)
--- NOTE | 2019-10-31 22:25 | RAD_ITS ---
HISTORY: Low-grade fever, low blood pressure, sepsis, weakness ADDITIONAL HISTORY: None provided. TECHNIQUE: Frontal chest radiograph. Number of images including paperwork: 1 COMPARISON: 09/22/2011 FINDINGS: LUNGS AND PLEURA: Left basilar airspace opacity. Low lung volumes. No sizable pleural effusion or pneumothorax. CARDIAC SILHOUETTE: Unremarkable. MEDIASTINUM AND JORGE: Unremarkable. UPPER ABDOMEN: Unremarkable. SKELETON AND SOFT TISSUES: No acute findings. OTHER DEVICES AND HARDWARE: None. RAD/Chest 1 View (Portable) IMPRESSION: Left basilar infiltrate concerning for pneumonia or aspiration pneumonia. at 2256 Reported and signed by: Kristin Riley MD Electronically Signed: Kristin Riley MD at 22:56 EDT Tel , Service support ,
[2019-10-31 22:30] LABS: International Normalized Ratio 1.1; Partial Thromboplast Time 21.6 Seconds (24.1-36.2); Prothrombin Time (Protime)PT. 13.3 SECONDS (11.7-14.9)
[2019-10-31 22:32] LABS: Squamous Epithelial Cells - UA 0-5 SEEN /hpf (0-5)
[2019-10-31 23:13] VITALS: BP 109/66; PULSE 94; RESP 18; TEMP 37.3; O2SAT 95
[2019-10-31 23:25] LABS: Lactic Acid 6.7 mmol/L (0.4-1.9)
[2019-11-01] VITALS (21 sets, daily range): BP systolic 113–153; BP diastolic 59–84; PULSE 85–99; RESP 14–28; TEMP 36.8–37.3; O2SAT 93–98; BMI 23.2
--- NOTE | 2019-11-01 00:35 | PCM.HP.STD ---
Problem List (1) Community acquired pneumonia Status: Acute (2) Septic shock Status: Acute History of Present Illness Date of Admission: 11/01/19 Chief Complaint: low blood glucose The patient is a 69 year old M with a significant history of hypertension; and diabetes and who lives at a senior care presents in because of low blood glucose. Reportedly because of low blood glucose paramedics gave him dextrose . After receiving dextrose his blood glucose improved. However work-up at emergency department showed low blood pressures with lowest systolic of 78 and lowest diastolic of 49. Also chest x-ray was remarkable for left lobe infiltrates. Upon questioning patient admits some shortness of breath. At the emergency department patient had tachycardia and leukocytosis. His lactic acid was 6.7. Patient is not forthcoming with information. Past Medical History Medical History: Medical History (Last Reviewed 11/01/19 @ 06:[address] Jesús Mathur MD) Diabetes E11.9 Hypertension I10 Allergies No Known Allergies Allergy (Verified 10/31/19 21:03) Home Medications: Ambulatory Orders Medication Instructions Recorded Beclomethasone Diprop Inhaler 2 puff INHALATION BID 07/05/16 [Qvar 80 Mcg Inhaler] Dexlansoprazole [Dexilant] 30 mg PO DAILY 07/05/16 Fluticasone 0.05% [Flonase Nasal 2 spray NASAL DAILY 07/05/16 [place]] Labetalol [Trandate] 200 mg PO BID 07/05/16 Lubiprostone [Amitiza] 24 mcg PO BID 07/05/16 Risperidone [Risperdal] 4 mg PO BID 07/05/16 Sennosides/Docusate Sodium 1 each PO BID 07/05/16 [Doc-Q-Lax Tablet] Sitagliptin Phos/Metformin HCl 1 tablet PO DAILY 07/05/16 [Janumet 50-1,000 MG Tablet] Zolpidem Tartrate [Ambien] 10 mg PO QHS 07/05/16 Acetaminophen [Tylenol Extra 500 mg PO Q6H PRN PRN #20 tab 07/09/18 Strength] Lisinopril/Hydrochlorothiazide 1 each PO BID 07/09/18 [Lisinopril-Hctz 20-12.5 mg Tab] Lorazepam [Ativan] 0.5 mg PO DAILY 07/09/18 Benztropine Mesylate 1 mg PO BID 10/31/19 Risperidone [Risperdal] 1 mg PO DAILY 10/31/19 Surgical History: no surgical history Smoking Status: Former smoker - *Family History Maternal History Items: - - Unable to be obtained since patient is not forthcoming with information. Paternal History Items: - - Unable to be obtained since patient is not forthcoming with information Review of Systems Constitutional: Denies: Chills, Fever, Weight Change HEENT: Denies: Head Aches, Sinus Congestion, Sinus Drainage Cardiovascular: Denies: Chest Pain, Palpitations Respiratory: Reports: Shortness of Breath. Denies: Cough, Shortness of breath at rest, Sputum production Gastrointestinal: Denies: Abdominal Pain, Nausea, Vomiting Genitourinary: Denies: Dysuria Musculoskeletal: Denies: Joint Pain, Joint Tenderness Skin: Denies: Rash, Wounds Neurological: Denies: Numbness, Tingling, Focal weakness Psychiatric: Denies: Anxiety, Depression, Homicidal Ideations, Suicidal Ideations Hematologic/ Lymphatic: Denies: Easy Bruising, Easy Bleeding VTE Information - Inpt Only VTE Present on Admission: No VTE Mechan Device Prophylaxis: None VTE Pharm Prophylaxis ordered?: Yes Patient Problems: Active and Suspected Problems (Last Updated 11/01/19 @ 06:[address] Jesús Mathur MD) Community acquired pneumonia (Acute) Septic shock (Acute) - Physical Exam Vitals/I&O's: Vital Signs Temp Pulse Resp BP Pulse Ox 99.1 F 94 19 H 133/72 H 97 11/01/19 00:13 11/01/19 00:13 11/01/19 00:13 11/01/19 00:13 11/01/19 00:13 Oxygen Delivery Method Room Air Weight: 79 kg Body Mass Index (BMI) 27.2 Finger Stick Blood Glucose 228 Intake and Output for Last 24 Hours 10/30/19 10/31/19 11/01/19 23:59 23:59 23:59 Intake Total 2400 / 2400 Balance 2400 / 2400 General: Alert, Oriented x3, Cooperative HEENT: Atraumatic, PERRLA, EOMI, Normocephalic Neck: Supple, No JVD, Negative Carotid Bruits Lungs: No rhonchi, No wheeze, Rales - Left base Cardiovascular: Regular rate, No murmurs Abdomen: Bowel Sounds Present, Soft, Non Tender Extremities: No edema, Capillary Refill Less than 3 Seconds Skin: No rashes, No breakdown Musculoskeletal: No Tenderness to Palpation of Joints or Extremities Neurological: Cranial nerves II-XII grossly intact Psych/Mental Status: Normal Affect, Appropriate Laboratory Results 10/31/19 21:02: WBC 15.0 H, RBC 5.05, Hgb 14.1, Hct 41.1, MCV 81.4, MCH 27.9, MCHC 34.3, RDW Std Deviation 38.2, RDW Coeff of Michelle 12.9, Plt Count 324, MPV 10.4, Immature Gran % (Auto) 0.500, Neut % (Auto) 87.8 H, Lymph % (Auto) 4.5 L, [place] % (Auto) 6.8, Eos % (Auto) 0.1, Baso % (Auto) 0.3, Absolute Neuts (auto) 13.1 H, Absolute Lymphs (auto) 0.68 L, Nucleated RBC % 0 10/31/19 21:02: Sodium 129 L, Potassium 4.0, Chloride 93 L, Carbon Dioxide 20.0 L, Anion Gap 16 H, BUN 21 H, Creatinine 1.39 H, Estim Creat Clear Calc 46.23, Est GFR (MDRD) Af Amer 65, Est GFR (MDRD) Non-Af 54 L, BUN/Creatinine Ratio 15.1, Glucose 192 H, Calcium 9.0, Total Bilirubin 1.10 H, AST 23, ALT 19, Alkaline Phosphatase 68, Total Protein 7.5, Albumin 3.9, Globulin 3.6, Albumin/Globulin Ratio 1.1 10/31/19 21:02: PT 13.3, INR 1.1, APTT 21.6 L 10/31/19 21:02: Lactic Acid 6.7 H* 10/31/19 22:15: Urine Color Yellow, Urine Clarity Sl. Cloudy, Urine pH 6.5, Ur Specific [place] 1.010, Urine Protein Negative, Urine Glucose (UA) Normal, Urine Ketones Negative, Urine Occult Blood Negative, Urine Nitrite Negative, Urine Bilirubin Negative, Urine Urobilinogen Normal, Ur Leukocyte Esterase Negative, Urine RBC 0 SEEN, Urine WBC 0 SEEN, Ur Squamous Epith Cells 0-5 SEEN, Urine Bacteria 0 SEEN, Urine Mucus 0 SEEN Assessment/Plan All Active Problems (Last Updated 11/01/19 @ 06:[address] Jesús Mathur MD) Community acquired pneumonia (Acute) Septic shock (Acute) The patient is a 69 year old M with a significant history of hypertension; and diabetes and who lives at a senior care presents in because of low blood glucose; and was found to have tachycardia; leukocytosis; hypertension; and radiographic evidence of left lobe infiltrates; and lactic acid of 6.7. Septic shock secondary to pneumonia Community-acquired or aspiration pneumonia. Possible gram-negative or gram-positive. Patient with tachycardia; leukocytosis of more than 12; and lactic acid of 6.7 At the emergency department patient received normal saline 30 ML kilogram bolus per septic shock protocol. Also patient was given ceftriaxone and azithromycin. Blood cultures were obtained. We will trend lactic acid. Because of possible aspiration will order Unasyn. Azithromycin IV ordered Check strep pneumonia antigen and urine antigen. Covid screen at the emergency department was negative. Hold home blood pressure regimen. [employer] consults Hypoglycemia Resolved. Hold home hypoglycemic regimen. Accu-Chek QA CHS. DVT prophylaxis Subcutaneous Lovenox. Inpatient E&M: 47370 Init Hosp L3
--- NOTE | 2019-11-01 00:39 | ED.DCSUM_ITS ---
- ER Visit Summary Date of Service: 11/01/19 Chief Complaint: Weakness History of Present Illness: The patient is a 69 M who presents with weakness and low blood sugar today. EMS was called because the patient fell out of bed. Patient states his blood sugar was low. EMS administered glucose and the patie nt's blood pressure improved. Patient states he still felt weak. Patient admits to subjective chills but denies any fevers. Patient denies any cough or shortness of breath. Patient denies any nausea or vomiting. Patient states she otherwise feels fine. Patient is a poor historian. Physical Examination: Vital signs are stable except for a low blood pressure of 82/51 and a mild tachycardia of 113. Patient is afebrile here. Patient is in no acute distress. Oral mucosa is pink and moist. Neck is supple. Trachea is midline. There is no JVD. Heart was regular and tachycardic. Lungs are diminished bilaterally. There is adequate respiratory effort noted. Abdomen is soft. Bowel sounds are normal. There is no tenderness. Cranial nerves II through XII are grossly intact. There are no focal motor or sensory deficits noted. Extremities are intact. There is no calf tenderness or edema. Test Results: EKG showed normal sinus rhythm with a rate of 97. There are no acute ST or T wave changes. This was unchanged compared to previous EKG dated 11/02/2010. Chest x-ray shows a left basilar infiltrate. This was interpreted by the radiologist and myself. CBC shows a leukocytosis of 15.0. Lactate was elevated at 6.7. Sodium was slightly low at 129. BUN and creatinine were slightly elevated at 21 and 1.39. INR and PTT were within normal limits. Emergency Department Course and Treatment: Patient was given a 30 cc/kg bolus of normal saline. Patient's blood pressure improved to 133/72 after this. Blood cultures and urine culture was obtained. Patient was started on Rocephin and Zithromax for community-acquired pneumonia. He will admit the patient to ICU. Disposition: Admit to hospital Impression: 1. Community-acquired pneumonia 2. Septic shock This note was generated with [employer] dictation software. It may contain incorrect words, spelling, and punctuation that were not noted in review of the chart prior to signing ED Disposition - Plan for ED Patient: Disposition: Acute Care [facility] Diagnosis: Community acquired pneumonia, Septic shock Referrals: Arya,Russell Chi, MD [Primary Care Provider] -
[2019-11-01 02:20] LABS: Reflex Lactate? Y
[2019-11-01] MEDS: 0.9% Normal Saline 1,000 ML 100 ML IV ×3 (04:05→22:52)
[2019-11-01 04:14] LABS: Hematocrit 33.4 % (40-54); Hemoglobin 11.1 g/dL (13.0-16.5); Mean Corp Hgb Conc 33.2 g/dL (32-36); Mean Corpuscular Volume 84.1 fL (80-94); Mean Platelet Vol. 9.8 fl (6.2-12.0); POSITIVE DIFFERENTIAL YES; POSITIVE MORPHOLOGY YES; Platelet Count 208 K/mm3 (150-450); RBC Distribution Width CV 13.3 % (11.6-14.6); RBC Distribution Width SD 39.9 fl (35.1-43.9); Red Blood Count 3.97 M/mm3 (4.6-6.2); White Blood Count 18.8 K/mm3 (4.4-11.0)
[2019-11-01 04:34] LABS: Anion Gap 11 (5-15); BUN 20 mg/dL (7-18); Calcium,Total 7.8 mg/dL (8.5-10.1); Chloride 97 mmol/L (98-107); Creatinine, Serum 1.11 mg/dL (0.70-1.30); EST Glomerular Filtration Rate 69 mL/min (>60); Est Glom Filt Rate - Afr Amer 84 mL/min (>60); Estimated Creatinine Clearance 61.92 ml/min; Glucose 158 mg/dL (74-106); Potassium 3.3 mmol/L (3.5-5.1); Sodium Level 131 mmol/L (136-145)
[2019-11-01 04:46] LABS: Lactic Acid 4.3 mmol/L (0.4-1.9)
[2019-11-01 05:36] LABS: Scan Smear per Review Criteria MANUAL DIFF
[2019-11-01 05:37] LABS: Neutrophil-Segmented 66 % (47-70); Total Cells Counted 100 (MANUAL DIFF)
[2019-11-01 05:38] LABS: Atypical Lymphocyte RARE %; Lymphocyte 8 % (19-41); Monocyte 7 % (0-10); Myelocyte 1 (0-0); Neutrophil-Band 18 % (0-5); Platelet Estimate ADEQUATE (ADEQ)
[2019-11-01 05:41] LABS: Red Cell Morphology NORM C+C NORMAL (NORM C&C)
--- NOTE | 2019-11-01 06:05 | SEPSISNOTE ---
Sepsis Note - Physical Exam/Vitals Objective: Chest X-Ray 10/31/19 22:25 IMPRESSION: Left basilar infiltrate concerning for pneumonia or aspiration pneumonia. at 2256 Reported and signed by: Kristin Riley MD Electronically Signed: Kristin Riley MD at 22:56 EDT Tel , Service support , Temp Pulse Resp BP Pulse Ox 98.9 F 89 18 146/76 H 98 11/01/19 03:45 11/01/19 06:00 11/01/19 06:00 11/01/19 06:00 11/01/19 06:00 11/01/19 11/01/19 11/01/19 03:50 03:50 03:50 WBC 18.8 H RBC 3.97 L Hgb 11.1 L Hct 33.4 L MCV 84.1 MCH 28.0 MCHC 33.2 RDW Std Deviation 39.9 RDW Coeff of Michelle 13.3 Plt Count 208 MPV 9.8 Immature Gran % (Auto) COMPUTERIZED MILL RECORDER Neut % (Auto) COMPUTERIZED MILL RECORDER Lymph % (Auto) COMPUTERIZED MILL RECORDER [place] % (Auto) COMPUTERIZED MILL RECORDER Eos % (Auto) COMPUTERIZED MILL RECORDER Baso % (Auto) COMPUTERIZED MILL RECORDER Absolute Neuts (auto) 15.5 H Absolute Lymphs (auto) 1.13 Total Counted 100 Neutrophils % (Manual) 66 Band Neutrophils % 18 H Lymphocytes % (Manual) 8 L Monocytes % (Manual) 7 Myelocytes % 1 H Nucleated RBC % 0 Diff Path Review May foll Atypical Lymphocytes RARE Platelet Estimate ADEQUATE RBC Morphology NORM C+C PT INR APTT Sodium 131 L Potassium 3.3 L Chloride 97 L Carbon Dioxide 23.0 Anion Gap 11 BUN 20 H Creatinine 1.11 Estim Creat Clear Calc 61.92 Est GFR (MDRD) Af Amer 84 Est GFR (MDRD) Non-Af 69 BUN/Creatinine Ratio 18.0 Glucose 158 H Lactic Acid 4.3 H* Calcium 7.8 L Total Bilirubin AST ALT Alkaline Phosphatase Total Protein Albumin Globulin Albumin/Globulin Ratio Urine Color Urine Clarity Urine pH Ur Specific [place] Urine Protein Urine Glucose (UA) Urine Ketones Urine Occult Blood Urine Nitrite Urine Bilirubin Urine Urobilinogen Ur Leukocyte Esterase Urine RBC Urine WBC Ur Squamous Epith Cells Urine Bacteria Urine Mucus COVID-19 (JASON) 11/01/19 10/31/19 10/31/19 01:12 22:15 21:02 WBC RBC Hgb Hct MCV MCH MCHC RDW Std Deviation RDW Coeff of Michelle Plt Count MPV Immature Gran % (Auto) Neut % (Auto) Lymph % (Auto) [place] % (Auto) Eos % (Auto) Baso % (Auto) Absolute Neuts (auto) Absolute Lymphs (auto) Total Counted Neutrophils % (Manual) Band Neutrophils % Lymphocytes % (Manual) Monocytes % (Manual) Myelocytes % Nucleated RBC % Diff Path Review Atypical Lymphocytes Platelet Estimate RBC Morphology PT INR APTT Sodium Potassium Chloride Carbon Dioxide Anion Gap BUN Creatinine Estim Creat Clear Calc Est GFR (MDRD) Af Amer Est GFR (MDRD) Non-Af BUN/Creatinine Ratio Glucose Lactic Acid 6.7 H* Calcium Total Bilirubin AST ALT Alkaline Phosphatase Total Protein Albumin Globulin Albumin/Globulin Ratio Urine Color Yellow Urine Clarity Sl. Cloudy Urine pH 6.5 Ur Specific [place] 1.010 Urine Protein Negative Urine Glucose (UA) Normal Urine Ketones Negative Urine Occult Blood Negative Urine Nitrite Negative Urine Bilirubin Negative Urine Urobilinogen Normal Ur Leukocyte Esterase Negative Urine RBC 0 SEEN Urine WBC 0 SEEN Ur Squamous Epith Cells 0-5 SEEN Urine Bacteria 0 SEEN Urine Mucus 0 SEEN COVID-19 (JASON) Not Detected 10/31/19 10/31/19 10/31/19 21:02 21:02 21:02 WBC 15.0 H RBC 5.05 Hgb 14.1 Hct 41.1 MCV 81.4 MCH 27.9 MCHC 34.3 RDW Std Deviation 38.2 RDW Coeff of Michelle 12.9 Plt Count 324 MPV 10.4 Immature Gran % (Auto) 0.500 Neut % (Auto) 87.8 H Lymph % (Auto) 4.5 L [place] % (Auto) 6.8 Eos % (Auto) 0.1 Baso % (Auto) 0.3 Absolute Neuts (auto) 13.1 H Absolute Lymphs (auto) 0.68 L Total Counted Neutrophils % (Manual) Band Neutrophils % Lymphocytes % (Manual) Monocytes % (Manual) Myelocytes % Nucleated RBC % [address] Review Atypical Lymphocytes Platelet Estimate RBC Morphology PT 13.3 INR 1.1 APTT 21.6 L Sodium 129 L Potassium 4.0 Chloride 93 L Carbon Dioxide 20.0 L Anion Gap 16 H BUN 21 H Creatinine 1.39 H Estim Creat Clear Calc 46.23 Est GFR (MDRD) Af Amer 65 Est GFR (MDRD) Non-Af 54 L BUN/Creatinine Ratio 15.1 Glucose 192 H Lactic Acid Calcium 9.0 Total Bilirubin 1.10 H AST 23 ALT 19 Alkaline Phosphatase 68 Total Protein 7.5 Albumin 3.9 Globulin 3.6 Albumin/Globulin Ratio 1.1 Urine Color Urine Clarity Urine pH Ur Specific [place] Urine Protein Urine Glucose (UA) Urine Ketones Urine Occult Blood Urine Nitrite Urine Bilirubin Urine Urobilinogen Ur Leukocyte Esterase Urine RBC Urine WBC Ur Squamous Epith Cells Urine Bacteria Urine Mucus COVID-19 (JASON) General: Alert, Oriented x3, Cooperative Lungs: Rales Cardiovascular: Regular rate, Regular Rhythm, No murmurs Capillary Refill: <3 seconds Peripheral Pulses: Normal Skin Color: [place] - Attestation Sepsis Attestation: Sepsis re-evaluation was performed
[2019-11-01] MEDS: Budesonide Respules 0.5 MG/2 ML AMPUL.NEB. INHALATION (06:40)
[2019-11-01 06:41] LABS: Absolute Neutrophil Count 15.8 X10^3/uL (2.0-7.7); Differential Indicated MANUAL DIFF
--- NOTE | 2019-11-01 06:59 | PCM.CON.CC ---
Reason for Consult Date of Consultation: 11/01/19 Reason for Consultation: Septic shock History of Present Illness: The patient is a 69-year-old male, with a history as outlined below, who presented from his [facility] to the emergency department on October 31 with weakness and hypoglycemia. The patient apparently fell from his bed at his [facility], which prompted staff to contact EMS. The patient was hypoglycemic in route to the hospital and did receive supplemental dextrose. On presentation to the emergency department, the patient was noted to have a low-grade fever to 99.8 ?F. He was tachycardic and tachypneic as well. Blood pressures were quite tenuous at presentation. Laboratory evaluation revealed an elevated white blood cell count of 15,000. Chemistry profile was notable for a sodium of 129, chloride of 93, bicarbonate of 20, anion gap of 16 and creatinine of 1.39. Lactate was elevated to 6.7. Total bili was increased to 1.1. Urine analysis was unremarkable. Coronavirus PCR was negative. Chest x-ray revealed evidence of a left basilar airspace opacity. The patient received supplemental IV fluid hydration and was started on antimicrobials. He was subsequently admitted to the medical intensive care unit for management of septic shock. Past Medical History Medical History: Medical History (Last Reviewed 11/01/19 @ 06:[address] Jesús Mathur MD) Diabetes E11.9 Hypertension I10 Allergies No Known Allergies Allergy (Verified 10/31/19 21:03) Home Medications: Ambulatory Orders Medication Instructions Recorded Beclomethasone Diprop Inhaler 2 puff INHALATION BID 07/05/16 [Qvar 80 Mcg Inhaler] Dexlansoprazole [Dexilant] 30 mg PO DAILY 07/05/16 Fluticasone 0.05% [Flonase Nasal 2 spray NASAL DAILY 07/05/16 [place]] Labetalol [Trandate] 200 mg PO BID 07/05/16 Lubiprostone [Amitiza] 24 mcg PO BID 07/05/16 Risperidone [Risperdal] 4 mg PO BID 07/05/16 Sennosides/Docusate Sodium 1 each PO BID 07/05/16 [Doc-Q-Lax Tablet] Sitagliptin Phos/Metformin HCl 1 tablet PO DAILY 07/05/16 [Janumet 50-1,000 MG Tablet] Zolpidem Tartrate [Ambien] 10 mg PO QHS 07/05/16 Acetaminophen [Tylenol Extra 500 mg PO Q6H PRN PRN #20 tab 07/09/18 Strength] Lisinopril/Hydrochlorothiazide 1 each PO BID 07/09/18 [Lisinopril-Hctz 20-12.5 mg Tab] Lorazepam [Ativan] 0.5 mg PO DAILY 07/09/18 Benztropine Mesylate 1 mg PO BID 10/31/19 Risperidone [Risperdal] 1 mg PO DAILY 10/31/19 Surgical History: no surgical history Smoking Status: Former smoker - *Family History Maternal History Items: - - Unable to be obtained since patient is not forthcoming with information. Paternal History Items: - - Unable to be obtained since patient is not forthcoming with information Review of Systems Constitutional: Reports: Weakness. Denies: Chills, Fever Eyes: Denies: Blurred vision, Double vision HEENT: Denies: Head Aches, Sinus Congestion, Sinus Drainage Cardiovascular: Denies: Chest Pain, Palpitations Respiratory: Denies: Cough, Shortness of breath at rest, Sputum production Gastrointestinal: Denies: Abdominal Pain, Nausea, Vomiting Genitourinary: Denies: Dysuria Musculoskeletal: Denies: Joint Pain, Joint Tenderness Skin: Denies: Rash, Wounds Neurological: Denies: Numbness, Tingling, Focal weakness Psychiatric: Denies: Anxiety, Depression, Homicidal Ideations, Suicidal Ideations Hematologic/ Lymphatic: Reports: Anemia Patient Problems: Active and Suspected Problems (Last Reviewed 11/01/19 @ 06:[address] Jesús Mathur MD) Community acquired pneumonia (Acute) Septic shock (Acute) Objective: The patient's most recent lab work, culture data and imaging studies have all been personally reviewed. Strep and urine Legionella antigens were negative. Blood and urine cultures are pending. - Physical Exam Vitals/I&O's: Vital Signs Temp Pulse Resp BP Pulse Ox 98.9 F 89 18 146/76 H 98 11/01/19 03:45 11/01/19 06:00 11/01/19 06:00 11/01/19 06:00 11/01/19 06:00 Oxygen Delivery Method Room Air Weight: 157 lb 3.033 oz Body Mass Index (BMI) 23.2 Finger Stick Blood Glucose 228 Intake and Output for Last 24 Hours 10/30/19 10/31/19 11/01/19 23:59 23:59 23:59 Intake Total 2400 / 2400 417 / 417 Output Total 675 / 675 Balance 2400 / 2400 -258 / -258 General: Alert, Cooperative, No apparent distress HEENT: Atraumatic, Normocephalic Oral: No Gingival or Mucosal Lesions/ Ulcerations Neck: Supple, No Nodes, Trachea Midline Lungs: No rhonchi, No wheeze, No rales, Diminished Cardiovascular: Regular rate, Regular Rhythm Abdomen: Bowel Sounds Present, Soft, Non Tender Extremities: No clubbing, No cyanosis, No edema Skin: No breakdown Musculoskeletal: No Tenderness to Palpation of Joints or Extremities, No Muscle Wasting Lymphatic: No Cervical, Supraclavicular, or Inguinal Adenopathy Neurological: Cranial nerves II-XII grossly intact, Neuro grossly intact Psych/Mental Status: Normal Affect, Appropriate Labs (Last 48 Hours) 10/31/19 10/31/19 10/31/19 21:02 21:02 21:02 WBC 15.0 H RBC 5.05 Hgb 14.1 Hct 41.1 MCV 81.4 MCH 27.9 MCHC 34.3 RDW Std Deviation 38.2 RDW Coeff of Michelle 12.9 Plt Count 324 MPV 10.4 Immature Gran % (Auto) 0.500 Neut % (Auto) 87.8 H Lymph % (Auto) 4.5 L Bennett % (Auto) 6.8 Eos % (Auto) 0.1 Baso % (Auto) 0.3 Absolute Neuts (auto) 13.1 H Absolute Lymphs (auto) 0.68 L Total Counted Neutrophils % (Manual) Band Neutrophils % Lymphocytes % (Manual) Monocytes % (Manual) Myelocytes % Nucleated RBC % 0 Diff Path Review Atypical Lymphocytes Platelet Estimate RBC Morphology PT 13.3 INR 1.1 APTT 21.6 L Sodium 129 L Potassium 4.0 Chloride 93 L Carbon Dioxide 20.0 L Anion Gap 16 H BUN 21 H Creatinine 1.39 H Estim Creat Clear Calc 46.23 Est GFR (MDRD) Af Amer 65 Est GFR (MDRD) Non-Af 54 L BUN/Creatinine Ratio 15.1 Glucose 192 H Lactic Acid Calcium 9.0 Total Bilirubin 1.10 H AST 23 ALT 19 Alkaline Phosphatase 68 Total Protein 7.5 Albumin 3.9 Globulin 3.6 Albumin/Globulin Ratio 1.1 Urine Color Urine Clarity Urine pH Ur Specific [place] Urine Protein Urine Glucose (UA) Urine Ketones Urine Occult Blood Urine Nitrite Urine Bilirubin Urine Urobilinogen Ur Leukocyte Esterase Urine RBC Urine WBC Ur Squamous Epith Cells Urine Bacteria Urine Mucus COVID-19 (JASON) 10/31/19 10/31/19 11/01/19 21:02 22:15 01:12 WBC RBC Hgb Hct MCV MCH MCHC RDW Std Deviation RDW Coeff of Michelle Plt Count MPV Immature Gran % (Auto) Neut % (Auto) Lymph % (Auto) Bennett % (Auto) Eos % (Auto) Baso % (Auto) Absolute Neuts (auto) Absolute Lymphs (auto) Total Counted Neutrophils % (Manual) Band Neutrophils % Lymphocytes % (Manual) Monocytes % (Manual) Myelocytes % Nucleated RBC % Diff Path Review Atypical Lymphocytes Platelet Estimate RBC Morphology PT INR APTT Sodium Potassium Chloride Carbon Dioxide Anion Gap BUN Creatinine Estim Creat Clear Calc Est GFR (MDRD) Af Amer Est GFR (MDRD) Non-Af BUN/Creatinine Ratio Glucose Lactic Acid 6.7 H* Calcium Total Bilirubin AST ALT Alkaline Phosphatase Total Protein Albumin Globulin Albumin/Globulin Ratio Urine Color Yellow Urine Clarity Sl. Cloudy Urine pH 6.5 Ur Specific [place] 1.010 Urine Protein Negative Urine Glucose (UA) Normal Urine Ketones Negative Urine Occult Blood Negative Urine Nitrite Negative Urine Bilirubin Negative Urine Urobilinogen Normal Ur Leukocyte Esterase Negative Urine RBC 0 SEEN Urine WBC 0 SEEN Ur Squamous Epith Cells 0-5 SEEN Urine Bacteria 0 SEEN Urine Mucus 0 SEEN COVID-19 (JASON) Not Detected 11/01/19 11/01/19 11/01/19 03:50 03:50 03:50 WBC 18.8 H RBC 3.97 L Hgb 11.1 L Hct 33.4 L MCV 84.1 MCH 28.0 MCHC 33.2 RDW Std Deviation 39.9 RDW Coeff of Michelle 13.3 Plt Count 208 MPV 9.8 Immature Gran % (Auto) SUPERVISOR CHEMICAL Neut % (Auto) SUPERVISOR CHEMICAL Lymph % (Auto) SUPERVISOR CHEMICAL Bennett % (Auto) SUPERVISOR CHEMICAL Eos % (Auto) SUPERVISOR CHEMICAL Baso % (Auto) SUPERVISOR CHEMICAL Absolute Neuts (auto) 15.8 H Absolute Lymphs (auto) 1.50 Total Counted 100 Neutrophils % (Manual) 66 Band Neutrophils % 18 H Lymphocytes % (Manual) 8 L Monocytes % (Manual) 7 Myelocytes % 1 H Nucleated RBC % SUPERVISOR CHEMICAL Diff Path Review May foll Atypical Lymphocytes RARE Platelet Estimate ADEQUATE RBC Morphology NORM C+C PT INR APTT Sodium 131 L Potassium 3.3 L Chloride 97 L Carbon Dioxide 23.0 Anion Gap 11 BUN 20 H Creatinine 1.11 Estim Creat Clear Calc 61.92 Est GFR (MDRD) Af Amer 84 Est GFR (MDRD) Non-Af 69 BUN/Creatinine Ratio 18.0 Glucose 158 H Lactic Acid 4.3 H* Calcium 7.8 L Total Bilirubin AST ALT Alkaline Phosphatase Total Protein Albumin Globulin Albumin/Globulin Ratio Urine Color Urine Clarity Urine pH Ur Specific [place] Urine Protein Urine Glucose (UA) Urine Ketones Urine Occult Blood Urine Nitrite Urine Bilirubin Urine Urobilinogen Ur Leukocyte Esterase Urine RBC Urine WBC Ur Squamous Epith Cells Urine Bacteria Urine Mucus COVID-19 (JASON) Microbiology 10/31/19 22:15 Urine, Clean Catch Legionella Antigen - Final 10/31/19 22:15 Urine, Clean Catch Streptococcus pneumoniae Antigen (M - Final Clinical Impression(s) from Imaging Studies Chest X-Ray 10/31/19 22:25 IMPRESSION: Left basilar infiltrate concerning for pneumonia or aspiration pneumonia. at 2256 Reported and signed by: Kristin Riley MD Electronically Signed: Kristin Riley MD at 22:56 EDT Tel , Service support , Current Medications Acetaminophen (Tylenol) 650 mg PO Q6H PRN PRN PRN Reason: Pain Score 1-10/Temp > 100.7 F Benztropine Mesylate (Cogentin) 1 mg PO BID [facility] Budesonide (Pulmicort Aerosol) 0.5 mg INHALATION Q12H.RT RAJANI Last Admin: 11/01/19 06:40 Dose: 0.5 mg Documented by: Dextrose (D50w Syringe) 0 gm IV X1 PRN; Protocol PRN Reason: Hypoglycemia Enoxaparin Sodium (Lovenox) 40 mg SC DAILY [facility] Fluticasone Propionate (Flonase Nasal [place]) 2 spray NASAL DAILY [facility] Glucagon () 1 mg IM .X1 PRN PRN Reason: Hypoglycemia Sodium Chloride () 1,000 mls @ 100 mls/hr IV .Q10H RAJANI Last Infusion: 11/01/19 05:01 Dose: 100 mls/hr Documented by: Ampicillin Sodium/Sulbactam (Sodium 3 gm/ Sodium Chloride) 112 mls @ 150 mls/hr IV Q6 [facility] Stop: 11/08/19 03:51 Last Infusion: 11/01/19 05:01 Dose: Infused Documented by: Azithromycin 500 mg/ Dextrose 255 mls @ 250 mls/hr IV Q24H RAJANI Sodium Chloride () 250 mls @ 15 mls/hr IV .[id number] PRN PRN Reason: Saline Flush Sodium Chloride () 250 mls @ 15 mls/hr IV .[id number] PRN PRN Reason: Additional IVPB Infusion Lorazepam (Ativan) 0.5 mg PO DAILY [facility] Lubiprostone (Amitiza) 24 mcg PO BID [facility] Melatonin (Melatonin) 3 mg PO QHS PRN PRN PRN Reason: INSOMNIA Ondansetron HCl (Zofran) 4 mg IV Q8H PRN PRN PRN Reason: NAUSEA/VOMITING Pantoprazole Sodium (Protonix) 20 mg PO DAILY [facility] Risperidone (Risperdal) 1 mg PO DAILY [facility] Risperidone (Risperdal) 4 mg PO BID [facility] Senna/Docusate Sodium (Senokot-S, Suly-Colace) 1 tablet PO BID [facility] Sodium Chloride () 10 - 40 ml IV UD PRN PRN Reason: SALINE FLUSH Zolpidem Tartrate (Ambien (Generic)) 5 mg PO QHS [facility] Assessment/Plan Active and Suspected Problems (Last Reviewed 11/01/19 @ 06:[address] Jesús Mathur MD) Community acquired pneumonia (Acute) Septic shock (Acute) RECOMMENDATIONS: 1. Continue supplemental IV fluid hydration. 2. Continue empiric antimicrobials, while awaiting infectious work-up. 3. Encourage incentive spirometer use and mobilize patient as tolerated. 4. Continue bronchodilators per home regimen. 5. The patient is medically stable for transfer out of the intensive care unit. 6. Given the patient's lack of further ICU or pulmonary needs, will sign off. Please call with any additional questions. IMPRESSIONS: 1. Septic Shock The patient met septic shock criteria on admission based upon elevated lactate. The patient improved from a hemodynamic perspective with volume expansion. The patient did have radiographic evidence of a left basilar infiltrate on presentation. The patient is on appropriate antibiotics and has remained hemodynamically stable. Plan to continue the aforementioned antimicrobials, while awaiting infectious work-up. 2. Acute Kidney Injury Likely prerenal in etiology and related to #1. Creatinine has improved with volume expansion. Continue to monitor urine output. No current indication for renal replacement therapy. 3. Questionable COPD/asthma/diabetes mellitus/hyperlipidemia/hypertension/GERD Complicates care, management, recovery and prognosis. Continue home medications as indicated. This note was generated with [employer] dictation software. It may contain incorrect words, spelling, and punctuation that were not noted in checking the note before signing. Inpatient E&M: 67100 Init Hosp L3
--- NOTE | 2019-11-01 07:02 | PN_ITS ---
Patient Problems: Active and Suspected Problems (Last Reviewed 11/01/19 @ 06:[address] Jesús Mathur MD) Community acquired pneumonia (Acute) Septic shock (Acute) Subjective: Patient with no acute events overnight per self and per nursing report. Patient's blood pressure improved and he required no pressor therapy. He had on ly had transient low blood pressure in the ED and improved upon ICU transition. Patient lactic acid also significantly elevated upon presentation but improved with medical treatment and IV fluids. Patient noted feeling improved since initial ED presentation noting less dyspnea and less cough. Patient denies fevers, chills, nausea, emesis, abdominal pain, chest pain or worsened or recurrent dyspnea. Objective: Physical Examination: General: awake, alert, oriented x3 including to self, place and recent events but do suspect possibly some underlying mental retardation, seated upright in the ICU bed, no acute distress, notes feeling well and amenable to transition to PCU given stability. Skin: normal color, turgor, no icterus, cyanosis. HEENT: AT/NC, EOMI, PERRLA, improved less dry MM. Lungs: Diminished breath sounds, greater left base, moderate effort, no evidence of distress, no rales, ronchi or wheezing. Heart: Regular rate and rhythm; no gallop, rub audible. Abdomen: soft, NTTP, ND, normal BS. Extremities: no cyanosis, clubbing, or edema. Neurological: patient awake, alert, oriented as noted; cognitive function suspect baseline intact but unclear, do suspect possibly underlying mild MR; pupils equally reactive to light and accomodation; cranial nerves II-XII grossly normal, moving all 4 extremities, strength moderately global decreased. Psychiatric: affect appears likely improved since initial ED presentation, more talkative, suspect near normal, no acute evidence of depressive or anxiety feelings. Vitals/I&O's: Vital Signs Temp Pulse Resp BP Pulse Ox 98.9 F 89 18 146/76 H 98 11/01/19 03:45 11/01/19 06:00 11/01/19 06:00 11/01/19 06:00 11/01/19 06:00 Oxygen Delivery Method Room Air Weight: 157 lb 3.033 oz Body Mass Index (BMI) 23.2 Finger Stick Blood Glucose 228 Intake and Output for Last 24 Hours 10/30/19 10/31/19 11/01/19 23:59 23:59 23:59 Intake Total 2400 / 2400 417 / 417 Output Total 675 / 675 Balance 2400 / 2400 -258 / -258 Microbiology Past 72 Hours 10/31/19 22:15 Urine, Clean Catch Legionella Antigen - Final 10/31/19 22:15 Urine, Clean Catch Streptococcus pneumoniae Antigen (M - Final Laboratory Results 10/31/19 21:02: WBC 15.0 H, RBC 5.05, Hgb 14.1, Hct 41.1, MCV 81.4, MCH 27.9, MCHC 34.3, RDW Std Deviation 38.2, RDW Coeff of Michelle 12.9, Plt Count 324, MPV 10.4, Immature Gran % (Auto) 0.500, Neut % (Auto) 87.8 H, Lymph % (Auto) 4.5 L, Perkins % (Auto) 6.8, Eos % (Auto) 0.1, Baso % (Auto) 0.3, Absolute Neuts (auto) 13.1 H, Absolute Lymphs (auto) 0.68 L, Nucleated RBC % 0 10/31/19 21:02: Sodium 129 L, Potassium 4.0, Chloride 93 L, Carbon Dioxide 20.0 L, Anion Gap 16 H, BUN 21 H, Creatinine 1.39 H, Estim Creat Clear Calc 46.23, Est GFR (MDRD) Af Amer 65, Est GFR (MDRD) Non-Af 54 L, BUN/Creatinine Ratio 15.1, Glucose 192 H, Calcium 9.0, Total Bilirubin 1.10 H, AST 23, ALT 19, Alkaline Phosphatase 68, Total Protein 7.5, Albumin 3.9, Globulin 3.6, Albumin/Globulin Ratio 1.1 10/31/19 21:02: PT 13.3, INR 1.1, APTT 21.6 L 10/31/19 21:02: Lactic Acid 6.7 H* 10/31/19 22:15: Urine Color Yellow, Urine Clarity Sl. Cloudy, Urine pH 6.5, Ur Specific [place] 1.010, Urine Protein Negative, Urine Glucose (UA) Normal, Urine Ketones Negative, Urine Occult Blood Negative, Urine Nitrite Negative, Urine Ramirez irubin Negative, Urine Urobilinogen Normal, Ur Leukocyte Esterase Negative, Urine RBC 0 SEEN, Urine WBC 0 SEEN, Ur Squamous Epith Cells 0-5 SEEN, Urine Bacteria 0 SEEN, Urine Mucus 0 SEEN 11/01/19 01:12: COVID-19 (JASON) Not Detected 11/01/19 03:50: Lactic Acid 4.3 H* 11/01/19 03:50: WBC 18.8 H, RBC 3.97 L, Hgb 11.1 L, Hct 33.4 L, MCV 84.1, MCH 28.0, MCHC 33.2, RDW Std Deviation 39.9, RDW Coeff of Michelle 13.3, Plt Count 208, MPV 9.8, Immature Gran % (Auto) TRAINING INSTRUCTOR, Neut % (Auto) TRAINING INSTRUCTOR, Lymph % (Auto) TRAINING INSTRUCTOR, Perkins % (Auto) TRAINING INSTRUCTOR, Eos % (Auto) TRAINING INSTRUCTOR, Baso % (Auto) TRAINING INSTRUCTOR, Absolute Neuts (auto) 15.8 H, Absolute Lymphs (auto) 1.50, Total Counted 100, Neutrophils % (Manual) 66, Band Neutrophils % 18 H, Lymphocytes % (Manual) 8 L, Monocytes % (Manual) 7, Myelocytes % 1 H, Nucleated RBC % TRAINING INSTRUCTOR, Diff Path Review May foll, Atypical Lymphocytes RARE, Platelet Estimate ADEQUATE, RBC Morphology NORM C+C 11/01/19 03:50: Sodium 131 L, Potassium 3.3 L, Chloride 97 L, Carbon Dioxide 23.0, Anion Gap 11, BUN 20 H, Creatinine 1.11, Estim Creat Clear Calc 61.92, Est GFR (MDRD) Af Amer 84, Est GFR (MDRD) Non-Af 69, BUN/Creatinine Ratio 18.0, Glucose 158 H, Calcium 7.8 L Current Medications Acetaminophen (Tylenol) 650 mg PO Q6H PRN PRN PRN Reason: Pain Score 1-10/Temp > 100.7 F Benztropine Mesylate (Cogentin) 1 mg PO BID [facility] Budesonide (Pulmicort Aerosol) 0.5 mg INHALATION Q12H.RT RAJANI Last Admin: 11/01/19 06:40 Dose: 0.5 mg Documented by: Dextrose (D50w Syringe) 0 gm IV X1 PRN; Protocol PRN Reason: Hypoglycemia Enoxaparin Sodium (Lovenox) 40 mg SC DAILY [facility] Fluticasone Propionate (Flonase Nasal [place]) 2 spray NASAL DAILY [facility] Glucagon () 1 mg IM .X1 PRN PRN Reason: Hypoglycemia Sodium Chloride () 1,000 mls @ 100 mls/hr IV .Q10H RAJANI Last Infusion: 11/01/19 05:01 Dose: 100 mls/hr Documented by: Ampicillin Sodium/Sulbactam (Sodium 3 gm/ Sodium Chloride) 112 mls @ 150 mls/hr IV Q6 RAJANI Stop: 11/08/19 03:51 Last Infusion: 11/01/19 05:01 Dose: Infused Documented by: Azithromycin 500 mg/ Dextrose 255 mls @ 250 mls/hr IV Q24H RAJANI Sodium Chloride () 250 mls @ 15 mls/hr IV .[id number] PRN PRN Reason: Saline Flush Sodium Chloride () 250 mls @ 15 mls/hr IV .[id number] PRN PRN Reason: Additional IVPB Infusion Lorazepam (Ativan) 0.5 mg PO DAILY [facility] Lubiprostone (Amitiza) 24 mcg PO BID [facility] Melatonin (Melatonin) 3 mg PO QHS PRN PRN PRN Reason: INSOMNIA Ondansetron HCl (Zofran) 4 mg IV Q8H PRN PRN PRN Reason: NAUSEA/VOMITING Pantoprazole Sodium (Protonix) 20 mg PO DAILY [facility] Risperidone (Risperdal) 1 mg PO DAILY [facility] Risperidone (Risperdal) 4 mg PO BID [facility] Senna/Docusate Sodium (Senokot-S, Suly-Colace) 1 tablet PO BID [facility] Sodium Chloride () 10 - 40 ml IV UD PRN PRN Reason: SALINE FLUSH Zolpidem Tartrate (Ambien (Generic)) 5 mg PO QHS [facility] STROKE Vital Signs/Narrative: Vital Signs Temp Pulse Resp BP BP Pulse Ox 11/01/19 06:00 89 18 146/76 H 98 11/01/19 05:00 85 18 113/60 93 11/01/19 04:40 96 11/01/19 04:30 91 19 H 140/76 H 98 11/01/19 04:15 89 19 H 128/71 H 98 11/01/19 04:00 90 22 H 126/67 H 98 11/01/19 03:45 98.9 F 91 28 H 130/75 H 94 11/01/19 03:30 92 11/01/19 03:11 98.9 F 92 23 H 114/59 L 96 Medical Necessity - Tobacco Use Smoking Status: Former smoker Assessment/Plan All Active Problems (Last Reviewed 11/01/19 @ 06:[address] Jesús Mathur MD) Community acquired pneumonia (Acute) Septic shock (Acute) The patient is a 69 y/o M w/ PMHx: Anxiety and Depression/? Bipolar versus Schizophrenia, Diabetes mellitus type II, Chronic COPD/Asthma, Former Tobacco use, HTN, HLD who presents to the [facility] ED on 11/01/19 with history of low blood sugars at his residential as well as low blood pressure with recent increased fatigue and mild dyspnea but no recent cough per his report. 1. Acute septic shock (per lactic acid) secondary to Acute Pneumonia, Possible Aspiration versus CAP: BP in the ED initially low but improved requiring no pressor therapy, initial lactic acid 6.7 with repeat 4.3, she will CBC with WBC 15 with left shift, chest x-ray left basilar infiltrate concerning for pneumonia versus possible aspiration pneumonia. Patient initially admitted to the ICU, improved overnight with stabilized vital signs, urine antigens negative, blood culture x2 pending per ED, UA not market appearing with urine culture pending per ED, COVID testing negative, sputum culture requested but given not markedly coughing suspect will be unable to obtain, initially administered IV Rocephin and azithromycin in the ED, currently transition to Zosyn given aspiration concerns, encourage head of bed, I-S, continue home aerosols, PRN albuterol. PT, OT and speech therapies requested. Charge Poster consulted while patient was in the ICU but given clinically improved transition to PCU 11/01/2019 planned. 2. Acute Kidney Injury, likely secondary to #1: Admission BUN/10 and 21/1.39, hydrated overnight, repeat 11/01/2019 BUN/creatinine 20/1.11 improved with baseline creatinine noted 0.8, continue to hold patient diuretic and lisinopril, add back once appropriate 3. Hyponatremia, hypovolemic, acute on chronic: Patient admission with sodium 129, baseline 129-130s however do suspect patient hypovolemic currently given acute presentation but does have significant history psychiatrically on several medications that likely cause underlying chronic hyponatremia as well as patient diuretic, continue judicious hydration, repeat CMP in a.m. 4. Chronic COPD/Asthma with Former Tobacco use: Will maintain on oxygen with wean as tolerated to room air, continue ATC budesonide, PRN albuterol, HOB, IS parameters, encourage continued tobacco cessation. 5. Diabetes mellitus type II w/ Hypoglycemia: Hold oral home regimen given hypoglycemia and admission, obtain HgBA1c, pending speech therapy evaluation if appropriate maintain on ADA diet, accu checks w/ ISS cautiously given low BS likely secondary to #1. 6. Hypertension: We will add back patient lisinopril and hydrochlorothiazide once creatinine improved, continue judicious hydration as noted, PRN IV hydralazine in interim. 7. Hyperlipidemia: Not on statin therapy, defer to outpatient. 8. Anxiety and Depression/? Bipolar versus Schizophrenia: We will continue patient home psychiatric regimen including Ativan, Risperdal, benztropine. 9. GERD: Maintain on PPI. 10. DVT prophylaxis: SCDs, Lovenox. 11. CODE STATUS: Full code. Procedures: Other Procedure - See Report - No billing as admitted after midnight, billin
[2019-11-01 07:50] LABS: Magnesium 1.7 mg/dL (1.6-2.6)
[2019-11-01 08:36] LABS: Bedside Glucose 117 mg/dL (70-110)
[2019-11-01] MEDS: Fluticasone 0.05% 1 SPRAY NASAL.SRY 2 SPRAY NASAL (11:23)
[2019-11-01] MEDS: Enoxaparin 40 MG/0.4 ML Syringe SC (11:24)
[2019-11-01] MEDS: Benztropine 2 MG Tablet 1 MG PO ×2 (11:25→21:47)
[2019-11-01] MEDS: RisperiDONE 2 MG Tablet 4 MG PO ×2 (11:25→21:49)
[2019-11-01] MEDS: Pantoprazole Sodium 20 MG Tablet PO (11:25)
[2019-11-01] MEDS: RisperiDONE 1 MG Tablet PO (11:25)
[2019-11-01] MEDS: Senna/Docusate Sodium 1 Tablet PO ×2 (11:26→21:46)
[2019-11-01 11:41] LABS: Pathologist Review Reviewed
[2019-11-01 12:15] LABS: Bedside Glucose 149 mg/dL (70-110)
--- NOTE | 2019-11-01 13:08 | CASEMGMT ---
YULISA called patient's custodial and spoke with Meredith. Patient is his own decision maker. He has a sister, but she is not involved. YULISA asked about any restrictions that would prevent patient from returning. She said their are not any restrictions. She said he did fall before he came to [facility] and they have been having this problem. She is aware he fell here at [facility]. She said he was doing outpatient therapy, but then COVID hit and he had to stop. She said any new prescriptions would need to be sent to [facility] if he is discharged over the weekend. When patient is ready for discharge [facility] just needs to call patient's custodial ([phone]) and they will come and pick him up. Plan: Return to custodial
[2019-11-01 14:24] LABS: Hemoglobin A1c 6.2 % (3.8-5.6)
[2019-11-01 16:36] LABS: Bedside Glucose 145 mg/dL (70-110)
[2019-11-01] MEDS: Insulin Lispro 100 UNIT/ML INSULN.PEN SC (21:52)
[2019-11-01 22:00] LABS: Bedside Glucose 192 mg/dL (70-110)
[2019-11-02] VITALS (9 sets, daily range): BP systolic 117–161; BP diastolic 78–97; PULSE 80–104; RESP 14–20; TEMP 36.8–37.2; O2SAT 93–98
[2019-11-02 06:01] LABS: Absolute Lymphocyte Count 1.67 X10^3/uL (0.83-4.51); Absolute Neutrophil Count 11.5 X10^3/uL (2.0-7.7); Basophil# 0.04 X10^3/uL; Basophil% 0.3 % (0-1); Eosinophil# 0.15 X10^3/uL; Hemoglobin 10.9 g/dL (13.0-16.5); Lymphocyte # 1.67 X10^3/ul (4.0); Lymphocyte % 11.4 % (19-41); Mean Corpuscular Hgb 27.8 pg (27.0-32.0); Mean Corpuscular Volume 84.2 fL (80-94); Mean Platelet Vol. 9.7 fl (6.2-12.0); Monocyte# 1.17 X10^3/uL; NRBC Flagged by Analyzer 0 % (0-5); Neutrophil % 78.7 % (47-70); Platelet Count 201 K/mm3 (150-450); RBC Distribution Width CV 13.9 % (11.6-14.6); RBC Distribution Width SD 42.4 fl (35.1-43.9); Red Blood Count 3.92 M/mm3 (4.6-6.2); White Blood Count 14.6 K/mm3 (4.4-11.0)
[2019-11-02] MEDS: Budesonide Respules 0.5 MG/2 ML AMPUL.NEB. INHALATION (06:46)
[2019-11-02 06:51] LABS: Bedside Glucose 137 mg/dL (70-110)
[2019-11-02 07:21] LABS: ALB/GLOB Ratio 0.8 RATIO (0.9-2.4); AST(SGOT) 57 U/L (15-37); Alanine Aminotransfer ALT/SGPT 24 U/L (16-61); Albumin, Serum 2.5 g/dL (3.2-5.0); Alkaline Phosphatase 46 U/L (45-117); Anion Gap 6 (5-15); BUN 12 mg/dL (7-18); BUN/Creat Ratio 22.4 RATIO (10-20); Calcium,Total 7.8 mg/dL (8.5-10.1); Chloride 100 mmol/L (98-107); Creatinine, Serum 0.54 mg/dL (0.70-1.30); EST Glomerular Filtration Rate 161 mL/min (>60); Est Glom Filt Rate - Afr Amer 195 mL/min (>60); Estimated Creatinine Clearance 68.74 ml/min; Globulin 3.2 g/dL (2.2-4.2); Glucose 117 mg/dL (74-106); Potassium 3.4 mmol/L (3.5-5.1); Protein, Total 5.7 g/dL (6.4-8.2); Sodium Level 133 mmol/L (136-145)
--- NOTE | 2019-11-02 07:40 | PCM.PN.HOSP ---
Patient Problems: Active and Suspected Problems (Last Reviewed 11/01/19 @ 06:[address] Jesús Mathur MD) Community acquired pneumonia (Acute) Septic shock (Acute) Subjective: Patient with no acute events overnight per self and per nursing report. Patient evaluated per speech therapy and cleared for continued appropriate texture diet. Patient very quick to eat, described as shoveling his food in which is likely etiology for his aspiration event. Discussed the importance of eating appropriately with him. Noted that if patient continues to improve would plan discharged back to [facility] 11/03/2019. Patient denies fevers, chills, nausea, emesis, abdominal pain, chest pain or dyspnea. Objective: Physical Examination: General: awake, alert, oriented x3 including to self, place and recent events but odd answers occasionally, MRDD, suspect patient at baseline, no acute distress. Skin: normal color, turgor, no icterus, cyanosis. HEENT: AT/NC, EOMI, PERRLA, MMM. Lungs: Diminished breath sounds, greater left base, moderate effort, no evidence of distress, no rales, ronchi or wheezing. Heart: Regular rate and rhythm; no gallop, rub audible. Abdomen: soft, NTTP, ND, normal BS. Extremities: no cyanosis, clubbing, or edema. Neurological: patient awake, alert, oriented as noted; cognitive function suspect baseline intact with underlying MRDD; pupils equally reactive to light and accomodation; cranial nerves II-XII grossly normal, moving all 4 extremities, strength improving, mildly to moderately global decreased. Psychiatric: affect appears improving, talkative although odd speech which is baseline, No acute evidence of depressive or anxiety feelings. Vitals/I&O's: Vital Signs Temp Pulse Resp BP Pulse Ox 98.3 F 93 20 H 156/78 H 95 11/02/19 02:00 11/02/19 07:00 11/02/19 06:46 11/02/19 02:00 11/02/19 06:46 Oxygen Delivery Method Room Air Weight: 158 lb 4.67 oz Body Mass Index (BMI) 23.2 Finger Stick Blood Glucose 228 Intake and Output for Last 24 Hours 10/31/19 11/01/19 11/02/19 23:59 23:59 23:59 Intake Total 2400 / 2400 2452 / 2452 50 / 50 Output Total 2850 / 2850 550 / 550 Balance 2400 / 2400 -398 / -398 -500 / -500 Microbiology Past 72 Hours 10/31/19 22:15 Urine, Clean Catch Legionella Antigen - Final 10/31/19 22:15 Urine, Clean Catch Streptococcus pneumoniae Antigen (M - Final Laboratory Results 11/01/19 03:50: Diff Path Review Reviewed 11/01/19 03:50: Magnesium 1.7 11/01/19 03:50: Hemoglobin A1c 6.2 H 11/01/19 08:27: POC Glucose 117 H 11/01/19 12:05: POC Glucose 149 H 11/01/19 16:29: POC Glucose 145 H 11/01/19 21:43: POC Glucose 192 H 11/02/19 05:33: WBC 14.6 H, RBC 3.92 L, Hgb 10.9 L, Hct 33.0 L, MCV 84.2, MCH 27.8, MCHC 33.0, RDW Std Deviation 42.4, RDW Coeff of Michelle 13.9, Plt Count 201, MPV 9.7, Immature Gran % (Auto) 0.600, Neut % (Auto) 78.7 H, Lymph % (Auto) 11.4 L, [place] % (Auto) 8.0, Eos % (Auto) 1.0, Baso % (Auto) 0.3, Absolute Neuts (auto) 11.5 H, Absolute Lymphs (auto) 1.67, Nucleated RBC % 0 11/02/19 05:33: Sodium 133 L, Potassium 3.4 L, Chloride 100, Carbon Dioxide 27.0, Anion Gap 6, BUN 12, Creatinine 0.54 L, Estim Creat Clear Calc 68.74, Est GFR (MDRD) Af Amer 195, Est GFR (MDRD) Non-Af 161, BUN/Creatinine Ratio 22.4 H, Glucose 117 H, Calcium 7.8 L, Total Bilirubin 0.90, AST 57 H, ALT 24, Alkaline Phosphatase 46, Total Protein 5.7 L, Albumin 2.5 L, Globulin 3.2, Albumin/Globulin Ratio 0.8 L 11/02/19 06:44: POC Glucose 137 H Current Medications Acetaminophen (Tylenol) 650 mg PO Q6H PRN PRN PRN Reason: Pain Score 1-10/Temp > 100.7 F Albuterol Sulfate (Ventolin Aerosols) 2.5 mg INHALATION Q2H PRN PRN PRN Reason: Dyspnea, wheezing Benztropine Mesylate (Cogentin) 1 mg PO BID [facility] Last Admin: 11/01/19 21:47 Dose: 1 mg Documented by: Budesonide (Pulmicort Aerosol) 0.5 mg INHALATION Q12H.RT [facility] Last Admin: 11/02/19 06:46 Dose: 0.5 mg Documented by: Dextrose (D50w Syringe) 0 gm IV X1 PRN; Protocol PRN Reason: Hypoglycemia Enoxaparin Sodium (Lovenox) 40 mg SC DAILY [facility] Last Admin: 11/01/19 11:24 Dose: 40 mg Documented by: Fluticasone Propionate (Flonase Nasal [place]) 2 spray NASAL DAILY [facility] Last Admin: 11/01/19 11:23 Dose: 2 spray Documented by: Glucagon () 1 mg IM .X1 PRN PRN Reason: Hypoglycemia Hydralazine HCl (Apresoline Iv) 10 mg IV Q4H PRN PRN PRN Reason: SBP > 160 Sodium Chloride () 1,000 mls @ 100 mls/hr IV .Q10H [facility] Last Admin: 11/01/19 22:52 Dose: 100 mls/hr Documented by: Sodium Chloride () 250 mls @ 15 mls/hr IV .[id number] PRN PRN Reason: Saline Flush Sodium Chloride () 250 mls @ 15 mls/hr IV .[id number] PRN PRN Reason: Additional IVPB Infusion Piperacillin Sod/Tazobactam (Sod 3.375 gm/ Sodium Chloride) 50 mls @ 12.5 mls/hr IV Q8 [facility] Last Admin: 11/02/19 05:43 Dose: 12.5 mls/hr Documented by: Insulin Human Lispro (Humalog Kwikpen (Bkc)) 0 unit SC ACHS [facility]; Protocol Last Admin: 11/02/19 06:46 Dose: Not Given Documented by: Ondansetron HCl (Zofran) 4 mg IV Q8H PRN PRN PRN Reason: NAUSEA/VOMITING Pantoprazole Sodium (Protonix) 20 mg PO DAILY [facility] Last Admin: 11/01/19 11:25 Dose: 20 mg Documented by: Potassium Chloride (K-Dur) 40 meq PO X1 ONE Stop: 11/02/19 07:40 Risperidone (Risperdal) 1 mg PO DAILY [facility] Last Admin: 11/01/19 11:25 Dose: 1 mg Documented by: Risperidone (Risperdal) 4 mg PO BID [facility] Last Admin: 11/01/19 21:49 Dose: 4 mg Documented by: Senna/Docusate Sodium (Senokot-S, Suly-Colace) 1 tablet PO BID [facility] Last Admin: 11/01/19 21:46 Dose: 1 tablet Documented by: Sodium Chloride () 10 - 40 ml IV UD PRN PRN Reason: SALINE FLUSH STROKE Vital Signs/Narrative: Vital Signs Pulse Resp Pulse Ox 11/02/19 07:00 93 11/02/19 06:46 94 20 H 95 Medical Necessity - Tobacco Use Smoking Status: Former smoker Assessment/Plan All Active Problems (Last Reviewed 11/01/19 @ 06:[address] Jesús Mathur MD) Community acquired pneumonia (Acute) Septic shock (Acute) The patient is a 69 y/o M w/ PMHx: Anxiety and Depression/? Bipolar versus Schizophrenia, Diabetes mellitus type II, Chronic COPD/Asthma, Former Tobacco use, HTN, HLD who presents to the [facility] ED on 11/01/19 with history of low blood sugars at his [facility] as well as low blood pressure with recent increased fatigue and mild dyspnea but no recent cough per his report. 1. Acute septic shock (per lactic acid) secondary to Acute Pneumonia, Possible Aspiration versus CAP: BP in the ED initially low but improved requiring no pressor therapy, initial lactic acid 6.7 with repeat 4.3, she will CBC with WBC 15 with left shift, chest x-ray left basilar infiltrate concerning for pneumonia versus possible aspiration pneumonia. Patient initially admitted to the ICU, improved overnight with stabilized vital signs, urine antigens negative, blood culture x2 pending per ED, UA not market appearing with urine culture pending per ED, COVID testing negative, sputum culture requested but given not markedly coughing suspect will be unable to obtain, initially administered IV Rocephin and azithromycin in the ED, transition to Zosyn given aspiration concerns, encourage head of bed, I-S, speech therapy consulted and allowance of regular texture diet but encouraged slower intake, continue PRN albuterol. Transition to PCU 11/01/2019 without further event. PT and OT evaluations. Plan discharge likely back to penitentiary on 11/03/2019 if no further events and remained stable. = 2. Acute Kidney Injury, likely secondary to #1: Admission BUN/10 and 21/1.39, hydrated overnight, repeat 11/01/2019 BUN/creatinine 20/1.11 improved with baseline creatinine noted 0.8, initially holding diuretic and lisinopril, 11/02/2019 BUN/creatinine 12/0.54, sodium 133, will add back patient lisinopril and diuretic regimen with repeat CMP in AM. 3. Hyponatremia, hypovolemic, acute on chronic: Patient admission with sodium 129, baseline 129-130s however do suspect patient hypovolemic currently given acute presentation but does have significant history psychiatrically on several medications that likely cause underlying chronic hyponatremia as well as patient diuretic, initially held patient's lisinopril and diuretic as noted #2 given concurrent LISHA, repeat 11/02/2019 sodium 133, improved renal function therefore will add back and repeat CMP in a.m. 4. Chronic COPD/Asthma with Former Tobacco use: Will maintain on oxygen with wean as tolerated to room air, continue ATC budesonide, PRN albuterol, HOB, IS parameters, encourage continued tobacco cessation. 5. Diabetes mellitus type II w/ Hypoglycemia: Held oral regimen secondary to hyperglycemia upon presentation, obtain hemoglobin A1c and noted to be 6.2%, given this we will recommend de-escalation off patient oral regiment given episodes of hypoglycemia. Can continue to closely monitor blood sugars and add back a less aggressive regimen if necessary. 6. Hypertension: Given improvement of hyponatremia and LISHA we will add back patient lisinopril and hydrochlorothiazide, continue labetalol, PRN IV hydralazine. 7. Hyperlipidemia: Not on statin therapy, defer to outpatient. 8. Anxiety and Depression/? Bipolar versus Schizophrenia: We will continue patient home psychiatric regimen including Ativan, Risperdal, benztropine. 9. GERD: Maintain on PPI. 10. DVT prophylaxis: SCDs, Lovenox. 11. CODE STATUS: Full code. Inpatient E&M: 34242 Subs Hosp L2
[2019-11-02] MEDS: Fluticasone 0.05% 1 SPRAY NASAL.SRY 2 SPRAY NASAL (08:14)
[2019-11-02] MEDS: Senna/Docusate Sodium 1 Tablet PO ×2 (08:15→21:01)
[2019-11-02] MEDS: RisperiDONE 2 MG Tablet 4 MG PO ×2 (08:15→21:01)
[2019-11-02] MEDS: Pantoprazole Sodium 20 MG Tablet PO (08:15)
[2019-11-02] MEDS: RisperiDONE 1 MG Tablet PO (08:15)
[2019-11-02] MEDS: Enoxaparin 40 MG/0.4 ML Syringe SC (08:15)
[2019-11-02] MEDS: Benztropine 2 MG Tablet 1 MG PO ×2 (08:16→21:01)
[2019-11-02] MEDS: 0.9% Normal Saline 1,000 ML 100 ML IV (08:26)
[2019-11-02 09:50] LABS: Bedside Glucose 228 mg/dL (70-110)
[2019-11-02 11:21] LABS: Bedside Glucose 139 mg/dL (70-110)
[2019-11-02 17:15] LABS: Bedside Glucose 138 mg/dL (70-110)
[2019-11-02] MEDS: 0.9% Saline Lock 10 ML Syringe IV (21:01)
[2019-11-02] MEDS: Labetalol 200 MG Tablet PO (21:01)
[2019-11-02] MEDS: hydroCHLOROthiazide 12.5mg 12.5 MG PO (21:01)
[2019-11-02] MEDS: Lisinopril 20 MG Tablet PO (21:01)
[2019-11-02] MEDS: Insulin Lispro 100 UNIT/ML INSULN.PEN SC (21:02)
[2019-11-02 21:41] LABS: Bedside Glucose 176 mg/dL (70-110)
[2019-11-03 02:45] VITALS: PULSE 74
[2019-11-03 02:50] VITALS: BP 149/98; PULSE 87; RESP 14; TEMP 36.6; O2SAT 99
[2019-11-03 06:24] VITALS: PULSE 76; RESP 18; O2SAT 96
[2019-11-03] MEDS: Budesonide Respules 0.5 MG/2 ML AMPUL.NEB. INHALATION (06:24)
[2019-11-03 06:46] LABS: Bedside Glucose 115 mg/dL (70-110)
[2019-11-03 06:49] LABS: Absolute Lymphocyte Count 2.11 X10^3/uL (0.83-4.51); Absolute Neutrophil Count 8.7 X10^3/uL (2.0-7.7); Basophil# 0.05 X10^3/uL; Basophil% 0.4 % (0-1); Eosinophil# 0.18 X10^3/uL; Eosinophils% 1.5 % (0-5); Hemoglobin 11.6 g/dL (13.0-16.5); Lymphocyte # 2.11 X10^3/ul (4.0); Lymphocyte % 17.6 % (19-41); Mean Corp Hgb Conc 33.1 g/dL (32-36); Mean Corpuscular Hgb 27.8 pg (27.0-32.0); Mean Corpuscular Volume 83.7 fL (80-94); Mean Platelet Vol. 9.7 fl (6.2-12.0); Monocyte% 7.5 % (0-10); NRBC Flagged by Analyzer 0 % (0-5); Neutrophil # 8.66 X10^3/uL (2.7-7.7); Neutrophil % 72.2 % (47-70); Platelet Count 216 K/mm3 (150-450); RBC Distribution Width CV 13.7 % (11.6-14.6); RBC Distribution Width SD 42.1 fl (35.1-43.9); Red Blood Count 4.18 M/mm3 (4.6-6.2)
[2019-11-03 07:00] VITALS: PULSE 76
[2019-11-03 07:29] LABS: ALB/GLOB Ratio 0.7 RATIO (0.9-2.4); AST(SGOT) 43 U/L (15-37); Alanine Aminotransfer ALT/SGPT 25 U/L (16-61); Albumin, Serum 2.7 g/dL (3.2-5.0); Alkaline Phosphatase 52 U/L (45-117); Anion Gap 7 (5-15); BUN 9 mg/dL (7-18); BUN/Creat Ratio 15.1 RATIO (10-20); Calcium,Total 8.8 mg/dL (8.5-10.1); Chloride 96 mmol/L (98-107); EST Glomerular Filtration Rate 142 mL/min (>60); Est Glom Filt Rate - Afr Amer 172 mL/min (>60); Estimated Creatinine Clearance 68.35 ml/min; Globulin 3.8 g/dL (2.2-4.2); Glucose 122 mg/dL (74-106); Potassium 3.9 mmol/L (3.5-5.1); Protein, Total 6.5 g/dL (6.4-8.2); Sodium Level 133 mmol/L (136-145)
[2019-11-03 08:43] VITALS: BP 161/78; PULSE 86; RESP 16; TEMP 36.8; O2SAT 96
[2019-11-03] MEDS: Fluticasone 0.05% 1 SPRAY NASAL.SRY 2 SPRAY NASAL (08:45)
[2019-11-03] MEDS: Senna/Docusate Sodium 1 Tablet PO (08:46)
[2019-11-03] MEDS: hydroCHLOROthiazide 12.5mg 12.5 MG PO (08:46)
[2019-11-03] MEDS: Lisinopril 20 MG Tablet PO (08:46)
[2019-11-03] MEDS: RisperiDONE 2 MG Tablet 4 MG PO (08:46)
[2019-11-03] MEDS: RisperiDONE 1 MG Tablet PO (08:46)
[2019-11-03] MEDS: Pantoprazole Sodium 20 MG Tablet PO (08:46)
[2019-11-03] MEDS: Benztropine 2 MG Tablet 1 MG PO (08:47)
[2019-11-03] MEDS: Enoxaparin 40 MG/0.4 ML Syringe SC (08:47)
[2019-11-03] MEDS: Labetalol 200 MG Tablet PO (08:48)
[2019-11-03 11:45] LABS: Bedside Glucose 193 mg/dL (70-110)
--- NOTE | 2019-11-03 11:53 | PCM.DC ---
- Discharge Diagnoses Current Active Problems: Current Active and Chronic Problems (Last Reviewed 11/01/19 @ 06:[address] Jesús Mathur MD) 1. Acute septic shock (per lactic acid) secondary to Acute Pneumonia, Possible Aspiration versus CAP 2. Acute Kidney Injury, likely secondary to #1 3. Hyponatremia, hypovolemic, acute on chronic 4. Chronic COPD/Asthma with Former Tobacco use 5. Diabetes mellitus type II w/ Recurrent [place] Hypoglycemia (HgBA1c 6.2%) 6. Hypertension 7. Hyperlipidemia 8. Anxiety and Depression/? Bipolar versus Schizophrenia 9. GERD You will use the following diet at home:: Calorie/Carbohydrate Controlled (specify 1200, 1400, etc) - Recommend liberal diet given hypoglycemia. HgbA1c 6.2%. Maintain on ADA and defer mediations. Your food should be the consistency of: Regular Your liquids should be the consistency of: Regular/Thin Discharge Activity: Return to Normal Activity May resume sexual activity in: No Restrictions Weight Bearing Status: Weight bearing as tolerated Call your doctor if you observe: Fever of 101 or Higher, Inability to urinate, Inability to have a bowel movement, Shortness of breath, Dizziness, Fainting spells, Chest pain, Uncontrolled pain Instructions: What Is Pneumonia?, Preventing Pneumonia, Treating Pneumonia Additional Instructions: During the admission patient was evaluated by speech therapy as concern for possible aspiration. He was allowed to have a regular texture and thin liquid diet however he was noted to very quickly eat which may be contributing. Please assure patient eats more slowly, sitting upright, swallowing each bite and swallowing each oral drink intake prior to the next. During the admission your HgbA1c was 6.2%. Given your ongoing episodes of low blood sugars will discontinue your oral diabetic medications. Please continue ADA diet and plan on having repeat HgBA1c testing outpatient with your primary care physician in the future to assure continued control with this measure. Allergies/Adverse Reactions: Allergies No Known Allergies Allergy (Verified 10/31/19 21:03) Medications to take at Discharge Beclomethasone Diprop Inhaler [Qvar 80 Mcg Inhaler] 2 puff INHALATION BID 07/05/16 Dexlansoprazole [Dexilant] 30 mg PO DAILY 07/05/16 Fluticasone 0.05% [Flonase Nasal [place]] 2 spray NASAL DAILY 07/05/16 Labetalol [Trandate (Beta Ozzy)] 200 mg PO BID 07/05/16 Lubiprostone [Amitiza] 24 mcg PO BID 07/05/16 Risperidone [Risperdal] 4 mg PO BID 07/05/16 Sennosides/Docusate Sodium [Doc-Q-Lax Tablet] 1 each PO BID 07/05/16 Zolpidem Tartrate [Ambien] 10 mg PO QHS 07/05/16 Acetaminophen [Tylenol] 500 mg PO Q6H PRN PRN #20 tab 07/09/18 Lisinopril/Hydrochlorothiazide [Lisinopril-Hctz 20-12.5 mg Tab] 1 each PO BID 07/09/18 Lorazepam [Ativan] 0.5 mg PO DAILY 07/09/18 Benztropine Mesylate 1 mg PO BID 10/31/19 Risperidone [Risperdal] 1 mg PO DAILY 10/31/19 Albuterol IH (ProAir) [Proair Hfa] 1 - 2 puff INHALATION Q4H PRN PRN #1 inhaler 11/03/19 Amoxicillin/Potassium Clav [Augmentin 875-125 Tablet] 1 ea PO BID #10 tab 11/03/19 The following prescriptions were given: Amoxicillin/Potassium Clav [Augmentin 875-125 Tablet] 1 ea PO BID #10 tab Transmission Status: Pending to [facility] #[facility] Albuterol IH (ProAir) [Proair Hfa] 1 - 2 puff INHALATION Q4H PRN PRN #1 inhaler PRN Reason: dyspnea, wheezing Transmission Status: Pending to [facility] Primary Care Physician: Russell Koenig Chi, MD [Primary Care Provider] - Please follow up with your Primary Care Physician in: Follow-up within 3-5 days to review admission. Test Results: Test results from this visit will be discussed in further detail at your follow-up appointment, if applicable. Proposed Discharge Date: 11/03/19
--- NOTE | 2019-11-03 12:00 | DS.PCM_ITS ---
Discharge Date and Diagnosis - Problem List Patient Problems: Active and Suspected Problems (Last Reviewed 11/01/19 @ 06:[address] Jesús Mathur MD) Community acquired pneumonia (Acute) Septic shock (Acute) Date of Admission: 11/01/19 Date of Discharge: 11/03/19 - ' - Primary Discharge Diagnosis Acute Problems: Active Problems (Last Reviewed 11/01/19 @ 06:[address] Jesús Mathur MD) 1. Acute septic shock (per lactic acid) secondary to Acute Pneumonia, Possible Aspiration versus CAP 2. Acute Kidney Injury, likely secondary to #1 3. Hyponatremia, hypovolemic, acute on chronic 4. Chronic COPD/Asthma with Former Tobacco use 5. Diabetes mellitus type II w/ Recurrent Epsidoes Hypoglycemia (HgBA1c 6.2%) 6. Hypertension 7. Hyperlipidemia 8. Anxiety and Depression/? Bipolar versus Schizophrenia 9. GERD - Secondary Discharge Diagnosis Chronic Problems: 1. Chronic COPD/Asthma with Former Tobacco use 2. Diabetes mellitus type II w/ Recurrent [place]psidoes Hypoglycemia (HgBA1c 6.2%) 3. Hypertension 4. Hyperlipidemia 5. Anxiety and Depression/? Bipolar versus Schizophrenia 6. GERD Hospital Course and Treatment Dr. Norman ICU/Pulmonary Operations: None Procedures: EKG Summary of Care Provided: The patient is a 69 y/o M w/ PMHx: Anxiety and Depression/? Bipolar versus Schizophrenia, Diabetes mellitus type II, Chronic COPD/Asthma, Former Tobacco use, HTN, HLD who presented to the [facility] ED on 11/01/19 with history of low blood sugars at his custodial as well as low blood pressure with recent increased fatigue and mild dyspnea but no recent cough per his report. BP in the ED initially low but improved requiring no pressor therapy, initial lactic acid 6.7 with repeat 4.3, she will CBC with WBC 15 with left shift, chest x-ray left basilar infiltrate concerning for pneumonia versus possible aspiration pneumonia. Patient initially admitted to the ICU, improved overnight with stabilized vital signs, urine antigens negative, blood culture x2 pending per ED, UA not market appearing with urine culture pending per ED, COVID testing negative, sputum culture requested but given not markedly coughing unable to obtain, initially administered IV Rocephin and azithromycin in the ED, transitioned to Zosyn given aspiration concerns, encouraged head of bed, I-S, speech therapy consulted and allowance of regular texture diet but encouraged slower intake, continued PRN albuterol. Admission BUN/10 and 21/1.39, hydrated overnight, repeat 11/01/2019 BUN/creatinine 20/1.11 improved with baseline creatinine noted 0.8, initially held diuretic and lisinopril, 11/02/2019 BUN/creatinine 12/0.54, sodium 133, added back with repeat 11/03/19 BUN/Cr 9/0.60. Patient admission with sodium 129, baseline 129-130s however suspected patient hypovolemic given acute presentation and as noted initially held patient's lisinopril and diuretic given concurrent LISHA, repeat 11/03/2019 sodium 133, normalized to his baseline. During admission, given history low BS frequently at custodial, obtained HgBA1c noted 6.2%, therefore discontinued oral outpatient regimen with continued ADA only with planned repeat outpatient HgbA1c at later date. Given patient clinical improvement, oxygenation testing performed and unremarkable therefore discharged back to custodial with continued Augmentin to complete therapy with plan follow-up with primary care physician within 3 to 5 days. DAY OF DISCHARGE PROGRESS NOTE: Subjective: Patient without acute event overnight per self and nursing report. Patient denies any cough or any further breathing issues periods discussed strongly and need for patient to slow down his oral intake as this may be related to aspiration per discussion with speech therapy. Patient denies fever, chills, nausea, emesis, abdominal pain, chest pain or recurrent or worsened dyspnea. Patient agreeable to discharge to his custodial. Patient will be discharged with follow-up with primary care physician within 3-5 days. Objective: T 90.3, heart rate 86, BP 149/98, respiratory rate 14, 90% on room air. Physical Examination: General: awake, alert, oriented x3 but slow responses, chronic, MRDD, suspect at his baseline, no acute distress. Skin: normal color, turgor, no icterus, cyanosis. HEENT: AT/NC, EOMI, PERRLA, MMM. Lungs: Diminished breath sounds, greater left base, moderate effort, no evidence of distress, no rales, ronchi or wheezing. Heart: Regular rate and rhythm; no gallop, rub audible. Abdomen: soft, NTTP, ND, normal BS. Extremities: no cyanosis, clubbing, or edema. Neurological: patient awake, alert, oriented as noted; cognitive function suspect baseline intact with underlying MRDD; pupils equally reactive to light and accomodation; cranial nerves II-XII grossly normal, moving all 4 extremities, strength improving, mildly globally decreased. Psychiatric: affect appears normal, smiling with responses today, no acute evidence of depressive or anxiety feelings. Assessment and Plan: Please see hospital summary above. Patient Problems: Active and Suspected Problems (Last Reviewed 11/01/19 @ 06:[address] Jesús Mathur MD) Community acquired pneumonia (Acute) Septic shock (Acute) - Physical Exam Vitals/I&O's: Vital Signs Temp Pulse Resp BP Pulse Ox 98.3 F 86 16 161/78 H 96 11/03/19 08:43 11/03/19 08:43 11/03/19 08:43 11/03/19 08:43 11/03/19 08:43 Oxygen Delivery Method Room Air Weight: 154 lb 15.759 oz Body Mass Index (BMI) 23.2 Finger Stick Blood Glucose 228 Intake and Output for Last 24 Hours 11/01/19 11/02/19 11/03/19 23:59 23:59 23:59 Intake Total 2452 / 2452 1471.67 / 1471.67 96.04 / 96.04 Output Total 2850 / 2850 1300 / 1300 Balance -398 / -398 171.67 / 171.67 96.04 / 96.04 Microbiology Past 72 Hours 10/31/19 21:10 Blood Culture (Wb) - Anticubital Left Blood Culture - Preliminary No growth in 48 hours. 10/31/19 21:12 Blood Culture (Wb) - Right Forearm Blood Culture - Preliminary No growth in 48 hours. 10/31/19 22:15 Urine, Clean Catch Urine Culture - Final Culture exhibits no growth. 10/31/19 22:15 Urine, Clean Catch Legionella Antigen - Final 10/31/19 22:15 Urine, Clean Catch Streptococcus pneumoniae Antigen (M - Final Laboratory Results 11/02/19 16:46: POC Glucose 138 H 11/02/19 20:55: POC Glucose 176 H 11/03/19 06:08: WBC 12.0 H, RBC 4.18 L, Hgb 11.6 L, Hct 35.0 L, MCV 83.7, MCH 27.8, MCHC 33.1, RDW Std Deviation 42.1, RDW Coeff of Michelle 13.7, Plt Count 216, MPV 9.7, Immature Gran % (Auto) 0.800, Neut % (Auto) 72.2 H, Lymph % (Auto) 17.6 L, Chicot % (Auto) 7.5, Eos % (Auto) 1.5, Baso % (Auto) 0.4, Absolute Neuts (auto) 8.7 H, Absolute Lymphs (auto) 2.11, Nucleated RBC % 0 11/03/19 06:08: Sodium 133 L, Potassium 3.9, Chloride 96 L, Carbon Dioxide 30.0, Anion Gap 7, BUN 9, Creatinine 0.60 L, Estim Creat Clear Calc 68.35, Est GFR (MDRD) Af Amer 172, Est GFR (MDRD) Non-Af 142, BUN/Creatinine Ratio 15.1, Glucose 122 H, Calcium 8.8, Total Bilirubin 1.00, AST 43 H, ALT 25, Alkaline Phosphatase 52, Total Protein 6.5, Albumin 2.7 L, Globulin 3.8, Albumin/Globulin Ratio 0.7 L 11/03/19 06:29: POC Glucose 115 H 11/03/19 11:36: POC Glucose 193 H Current Medications Acetaminophen (Tylenol) 650 mg PO Q6H PRN PRN PRN Reason: Pain Score 1-10/Temp > 100.7 F Albuterol Sulfate (Ventolin Aerosols) 2.5 mg INHALATION Q2H PRN PRN PRN Reason: Dyspnea, wheezing Benztropine Mesylate (Cogentin) 1 mg PO BID [facility] Last Admin: 11/03/19 08:47 Dose: 1 mg Documented by: Budesonide (Pulmicort Aerosol) 0.5 mg INHALATION Q12H.RT [facility] Last Admin: 11/03/19 06:24 Dose: 0.5 mg Documented by: Dextrose (D50w Syringe) 0 gm IV X1 PRN; Protocol PRN Reason: Hypoglycemia Enoxaparin Sodium (Lovenox) 40 mg SC DAILY [facility] Last Admin: 11/03/19 08:47 Dose: 40 mg Documented by: Fluticasone Propionate (Flonase Nasal Hubbell) 2 spray NASAL DAILY [facility] Last Admin: 11/03/19 08:45 Dose: 2 spray Documented by: Glucagon () 1 mg IM .X1 PRN PRN Reason: Hypoglycemia Hydralazine HCl (Apresoline Iv) 10 mg IV Q4H PRN PRN PRN Reason: SBP > 160 Hydrochlorothiazide () 12.5 mg PO BID [facility] Last Admin: 11/03/19 08:46 Dose: 12.5 mg Documented by: Sodium Chloride () 250 mls @ 15 mls/hr IV .[id number] PRN PRN Reason: Saline Flush Sodium Chloride () 250 mls @ 15 mls/hr IV .[id number] PRN PRN Reason: Additional IVPB Infusion Piperacillin Sod/Tazobactam (Sod 3.375 gm/ Sodium Chloride) 50 mls @ 12.5 mls/hr IV Q8 [facility] Last Infusion: 11/03/19 11:04 Dose: Infused Documented by: Insulin Human Lispro (Humalog Kwikpen (Bkc)) 0 unit SC [facility]; Protocol Last Admin: 11/03/19 11:57 Dose: Not Given Documented by: Labetalol HCl (Trandate) 200 mg PO BID [facility] Last Admin: 11/03/19 08:48 Dose: 200 mg Documented by: Lisinopril (Zestril) 20 mg PO BID [facility] Last Admin: 11/03/19 08:46 Dose: 20 mg Documented by: Ondansetron HCl (Zofran) 4 mg IV Q8H PRN PRN PRN Reason: NAUSEA/VOMITING Pantoprazole Sodium (Protonix) 20 mg PO DAILY [facility] Last Admin: 11/03/19 08:46 Dose: 20 mg Documented by: Risperidone (Risperdal) 1 mg PO DAILY [facility] Last Admin: 11/03/19 08:46 Dose: 1 mg Documented by: Risperidone (Risperdal) 4 mg PO BID [facility] Last Admin: 11/03/19 08:46 Dose: 4 mg Documented by: Senna/Docusate Sodium (Senokot-S, Suly-Colace) 1 tablet PO BID [facility] Last Admin: 11/03/19 08:46 Dose: 1 tablet Documented by: Sodium Chloride () 10 - 40 ml IV UD PRN PRN Reason: SALINE FLUSH Last Admin: 11/02/19 21:01 Dose: 20 ml Documented by: Discharge Activity: Return to Normal Activity May resume sexual activity in: No Restrictions Weight Bearing Status: Weight bearing as tolerated Call your doctor if you observe: Fever of 101 or Higher, Inability to urinate, Inability to have a bowel movement, Shortness of breath, Dizziness, Fainting spells, Chest pain, Uncontrolled pain Home Medications: Medications to take at Discharge Beclomethasone Diprop Inhaler [Qvar 80 Mcg Inhaler] 2 puff INHALATION BID 07/05/16 Dexlansoprazole [Dexilant] 30 mg PO DAILY 07/05/16 Fluticasone 0.05% [Flonase Nasal Hubbell] 2 spray NASAL DAILY 07/05/16 Labetalol [Trandate (Beta Ozzy)] 200 mg PO BID 07/05/16 Lubiprostone [Amitiza] 24 mcg PO BID 07/05/16 Risperidone [Risperdal] 4 mg PO BID 07/05/16 Sennosides/Docusate Sodium [Doc-Q-Lax Tablet] 1 each PO BID 07/05/16 Zolpidem Tartrate [Ambien] 10 mg PO QHS 07/05/16 Acetaminophen [Tylenol] 500 mg PO Q6H PRN PRN #20 tab 07/09/18 Lisinopril/Hydrochlorothiazide [Lisinopril-Hctz 20-12.5 mg Tab] 1 each PO BID 07/09/18 Lorazepam [Ativan] 0.5 mg PO DAILY 07/09/18 Benztropine Mesylate 1 mg PO BID 10/31/19 Risperidone [Risperdal] 1 mg PO DAILY 10/31/19 Albuterol IH (ProAir) [Proair Hfa] 1 - 2 puff INHALATION Q4H PRN PRN #1 inhaler 11/03/19 Amoxicillin/Potassium Clav [Augmentin 875-125 Tablet] 1 ea PO BID #10 tab 11/03/19 Following Prescrptions Were Given to Patient: Amoxicillin/Potassium Clav [Augmentin 875-125 Tablet] 1 ea PO BID #10 tab Transmission Status: Pending to [facility] #30 Albuterol IH (ProAir) [Proair Hfa] 1 - 2 puff INHALATION Q4H PRN PRN #1 inhaler PRN Reason: dyspnea, wheezing Transmission Status: Pending to [facility] #30 Primary Care Physician: Russlel Koenig Chi, MD [Primary Care Provider] - Please follow up with your Primary Care Physician in: Follow-up within 3-5 days to review admission. Patient Instructions: What Is Pneumonia?, Preventing Pneumonia, Treating Pneumonia Disposition: [facility]DC. Minutes spent on discharge:: 35 Patient Condition:: Fair Medical Necessity - Tobacco Use Smoking Status: Former smoker Meaningful Use Info Meaningful Use Diagnoses (Choose all that apply): None applicable Inpatient E&M: 23194 Disch Hosp
== END 2019-11-03 14:54 | disposition home or self-care (01) | DRG 871 ==
LOC: ED 11-01 00:54 → ICU 11-01 02:24 → PCU 11-01 09:56
PROVIDERS: Admitting Provider Hospitalist; Emergency Provider Emergency Medicine; PCP Family Medicine Geriatric Medicine; Visit Provider Family Medicine
DX: A41.9 Sepsis, unspecified organism (principal); R65.21 Severe sepsis with septic shock; J69.0 Pneumonitis due to inhalation of food and vomit; N17.9 Acute kidney failure, unspecified; E87.1 Hypo-osmolality and hyponatremia; J44.9 Chronic obstructive pulmonary disease, unspecified; E86.1 Hypovolemia; E11.649 Type 2 diabetes mellitus with hypoglycemia without coma; I10 Essential (primary) hypertension; E78.5 Hyperlipidemia, unspecified; F31.9 Bipolar disorder, unspecified; F20.9 Schizophrenia, unspecified; F41.9 Anxiety disorder, unspecified; F79 Unspecified intellectual disabilities; K21.9 Gastro-esophageal reflux disease without esophagitis; R63.8 Other symptoms and signs concerning food and fluid intake; Z79.84 Long term (current) use of oral hypoglycemic drugs; Z79.899 Other long term (current) drug therapy; Z87.891 Personal history of nicotine dependence
CPT/HCPCS: 36415; 71045; 80048; 80053; 81001; 82962; 83036; 83605; 83735; 85025; 85610; 85730; 87040; 87086; 87449; 87635; 92507; 92526; 92610; 93005; 94640; 97110; 97162; 97166; 99285; G2023; J7030; J7050; A4216; J0295; J0696; U0003

== ENCOUNTER → 2019-11-07 11:36 | Outpatient (CLI) | payer MEDICARE, SELFPAY ==
[2019-11-01 03:30] VITALS: BMI 23.2
[2019-11-07 12:26] LABS: Absolute Lymphocyte Count 2.26 X10^3/uL (0.83-4.51); Absolute Neutrophil Count 4.8 X10^3/uL (2.0-7.7); Basophil# 0.06 X10^3/uL; Basophil% 0.7 % (0-1); Eosinophil# 0.13 X10^3/uL; Eosinophils% 1.5 % (0-5); Hematocrit 37.2 % (40-54); Hemoglobin 12.3 g/dL (13.0-16.5); Lymphocyte # 2.26 X10^3/ul (4.0); Lymphocyte % 26.3 % (19-41); Mean Corp Hgb Conc 33.1 g/dL (32-36); Mean Corpuscular Hgb 27.7 pg (27.0-32.0); Mean Corpuscular Volume 83.8 fL (80-94); Mean Platelet Vol. 9.5 fl (6.2-12.0); Monocyte# 1.08 X10^3/uL; Monocyte% 12.6 % (0-10); NRBC Flagged by Analyzer 0 % (0-5); Neutrophil # 4.75 X10^3/uL (2.7-7.7); Neutrophil % 55.3 % (47-70); Platelet Count 293 K/mm3 (150-450); RBC Distribution Width CV 13.4 % (11.6-14.6); RBC Distribution Width SD 40.1 fl (35.1-43.9); Red Blood Count 4.44 M/mm3 (4.6-6.2); White Blood Count 8.6 K/mm3 (4.4-11.0)
[2019-11-07 12:49] LABS: Vitamin D,25 Hydroxy 20.2 ng/mL
[2019-11-07 13:03] LABS: ALB/GLOB Ratio 0.8 RATIO (0.9-2.4); AST(SGOT) 65 U/L (15-37); Alanine Aminotransfer ALT/SGPT 39 U/L (16-61); Albumin, Serum 3.1 g/dL (3.2-5.0); Alkaline Phosphatase 64 U/L (45-117); Anion Gap 6 (5-15); BUN 16 mg/dL (7-18); BUN/Creat Ratio 25.7 RATIO (10-20); Calcium,Total 8.8 mg/dL (8.5-10.1); Chloride 94 mmol/L (98-107); Creatinine, Serum 0.62 mg/dL (0.70-1.30); EST Glomerular Filtration Rate 135 mL/min (>60); Est Glom Filt Rate - Afr Amer 164 mL/min (>60); Glucose 142 mg/dL (74-106); Potassium 4.3 mmol/L (3.5-5.1); Protein, Total 7.1 g/dL (6.4-8.2); Sodium Level 129 mmol/L (136-145); Thyroid Stim Hormone (TSH) 0.26 uIU/mL (0.358-3.74)
== END ==
PROVIDERS: PCP Family Medicine Geriatric Medicine; Visit Provider Family Medicine Geriatric Medicine
DX: E11.9 Type 2 diabetes mellitus without complications (principal); E55.9 Vitamin D deficiency, unspecified; I10 Essential (primary) hypertension
CPT/HCPCS: 36415; 80053; 82306; 84443; 85025

== ENCOUNTER → 2019-11-11 09:49 | Outpatient (CLI) | payer MEDICARE, SELFPAY ==
[2019-11-01 03:30] VITALS: BMI 23.2
[2019-11-11 12:52] LABS: Urine Sodium 84 mmol/L (Not Establ.)
[2019-11-11 13:03] LABS: Anion Gap 6 (5-15); BUN 23 mg/dL (7-18); BUN/Creat Ratio 29.3 RATIO (10-20); Calcium,Total 8.6 mg/dL (8.5-10.1); Chloride 93 mmol/L (98-107); Creatinine, Serum 0.78 mg/dL (0.70-1.30); EST Glomerular Filtration Rate 104 mL/min (>60); Est Glom Filt Rate - Afr Amer 125 mL/min (>60); Glucose 169 mg/dL (74-106); Potassium 4.4 mmol/L (3.5-5.1); Sodium Level 127 mmol/L (136-145); T3 Uptake 42 % (33-40); T4 Free Direct 1.36 ng/dL (0.76-1.46)
[2019-11-11 13:04] LABS: Osmolality, Urine 508 mOsm/KG
[2019-11-11 13:05] LABS: Osmolality, Serum 274 mOsm/KG (280-301)
== END ==
PROVIDERS: PCP Family Medicine Geriatric Medicine; Visit Provider Family Medicine Geriatric Medicine
DX: E87.1 Hypo-osmolality and hyponatremia (principal); R68.89 Other general symptoms and signs
CPT/HCPCS: 36415; 80048; 83930; 83935; 84300; 84439; 84479

== ENCOUNTER → 2019-11-18 09:37 | Outpatient (CLI) | payer MEDICARE, SELFPAY ==
[2019-11-01 03:30] VITALS: BMI 23.2
[2019-11-18 10:58] LABS: Anion Gap 6 (5-15); BUN 21 mg/dL (7-18); BUN/Creat Ratio 27.6 RATIO (10-20); Calcium,Total 8.6 mg/dL (8.5-10.1); Chloride 96 mmol/L (98-107); Creatinine, Serum 0.76 mg/dL (0.70-1.30); EST Glomerular Filtration Rate 107 mL/min (>60); Est Glom Filt Rate - Afr Amer 130 mL/min (>60); Glucose 131 mg/dL (74-106); Potassium 4.4 mmol/L (3.5-5.1); Sodium Level 131 mmol/L (136-145)
== END ==
PROVIDERS: PCP Family Medicine Geriatric Medicine; Referring Provider Family Medicine Geriatric Medicine; Visit Provider Family Medicine Geriatric Medicine
DX: E87.1 Hypo-osmolality and hyponatremia (principal)
CPT/HCPCS: 36415; 80048

== ENCOUNTER → 2019-12-19 14:55 | Outpatient (CLI) | payer MEDICARE, SELFPAY ==
[2019-11-01 03:30] VITALS: BMI 23.2
[2019-12-19 17:34] LABS: Anion Gap 7 (5-15); BUN 22 mg/dL (7-18); BUN/Creat Ratio 26.3 RATIO (10-20); Calcium,Total 8.4 mg/dL (8.5-10.1); Chloride 96 mmol/L (98-107); Creatinine, Serum 0.84 mg/dL (0.70-1.30); EST Glomerular Filtration Rate 96 mL/min (>60); Est Glom Filt Rate - Afr Amer 116 mL/min (>60); Glucose 153 mg/dL (74-106); Potassium 4.1 mmol/L (3.5-5.1); Sodium Level 134 mmol/L (136-145)
== END ==
PROVIDERS: PCP Family Medicine Geriatric Medicine; Visit Provider Family Medicine Geriatric Medicine
DX: E87.1 Hypo-osmolality and hyponatremia (principal)
CPT/HCPCS: 36415; 80048

== ENCOUNTER → 2020-05-21 09:14 | Outpatient (CLI) | payer MEDICARE, SELFPAY ==
[2019-11-01 03:30] VITALS: BMI 23.2
[2020-05-21 11:27] LABS: Absolute Lymphocyte Count 2.37 X10^3/uL (0.83-4.51); Absolute Neutrophil Count 4.6 X10^3/uL (2.0-7.7); Basophil# 0.04 X10^3/uL; Basophil% 0.5 % (0-1); Eosinophils% 1.2 % (0-5); Hematocrit 40.8 % (40-54); Hemoglobin 13.9 g/dL (13.0-16.5); Lymphocyte # 2.37 X10^3/ul (4.0); Lymphocyte % 29.1 % (19-41); Mean Corp Hgb Conc 34.1 g/dL (32-36); Mean Corpuscular Hgb 28.3 pg (27.0-32.0); Mean Corpuscular Volume 83.1 fL (80-94); Mean Platelet Vol. 10.6 fl (6.2-12.0); Monocyte# 0.97 X10^3/uL; Monocyte% 11.9 % (0-10); NRBC Flagged by Analyzer 0 % (0-5); Neutrophil # 4.63 X10^3/uL (2.7-7.7); Neutrophil % 56.8 % (47-70); Platelet Count 218 K/mm3 (150-450); RBC Distribution Width CV 13.6 % (11.6-14.6); RBC Distribution Width SD 41.2 fl (35.1-43.9); Red Blood Count 4.91 M/mm3 (4.6-6.2); White Blood Count 8.2 K/mm3 (4.4-11.0)
[2020-05-21 11:42] LABS: Vitamin D,25 Hydroxy 10.8 ng/mL
[2020-05-21 11:58] LABS: ALB/GLOB Ratio 0.9 RATIO (0.9-2.4); AST(SGOT) 18 U/L (15-37); Alanine Aminotransfer ALT/SGPT 25 U/L (16-61); Albumin, Serum 3.6 g/dL (3.2-5.0); Alkaline Phosphatase 78 U/L (45-117); Anion Gap 7 (5-15); BUN 19 mg/dL (7-18); BUN/Creat Ratio 24.4 RATIO (10-20); Calcium,Total 8.9 mg/dL (8.5-10.1); Chloride 96 mmol/L (98-107); Creatinine, Serum 0.78 mg/dL (0.70-1.30); EST Glomerular Filtration Rate 104 mL/min (>60); Est Glom Filt Rate - Afr Amer 126 mL/min (>60); Globulin 3.8 g/dL (2.2-4.2); Glucose 132 mg/dL (74-106); Potassium 4.1 mmol/L (3.5-5.1); Protein, Total 7.4 g/dL (6.4-8.2); Sodium Level 131 mmol/L (136-145); Thyroid Stim Hormone (TSH) 0.23 uIU/mL (0.358-3.74)
[2020-05-21 20:46] LABS: T3 Uptake 38 % (33-40); T4 Free Direct 1.27 ng/dL (0.76-1.46)
== END ==
PROVIDERS: PCP Family Medicine Geriatric Medicine; Visit Provider Family Medicine Geriatric Medicine
DX: I10 Essential (primary) hypertension (principal); E11.9 Type 2 diabetes mellitus without complications; E55.9 Vitamin D deficiency, unspecified
CPT/HCPCS: 36415; 80053; 82306; 84439; 84443; 84479; 85025

== ENCOUNTER → 2020-08-06 14:45 | Outpatient (CLI) | payer MEDICARE, SELFPAY ==
[2019-11-01 03:30] VITALS: BMI 23.2
[2020-08-06 15:08] LABS: Absolute Lymphocyte Count 2.02 X10^3/uL (0.83-4.51); Absolute Neutrophil Count 5.2 X10^3/uL (2.0-7.7); Basophil# 0.06 X10^3/uL; Basophil% 0.7 % (0-1); Eosinophils% 1.2 % (0-5); Hematocrit 40.2 % (40-54); Hemoglobin 14.2 g/dL (13.0-16.5); Lymphocyte # 2.02 X10^3/ul (4.0); Lymphocyte % 24.5 % (19-41); Mean Corp Hgb Conc 35.3 g/dL (32-36); Mean Corpuscular Hgb 30.1 pg (27.0-32.0); Mean Corpuscular Volume 85.2 fL (80-94); Mean Platelet Vol. 10.3 fl (6.2-12.0); Monocyte# 0.74 X10^3/uL; NRBC Flagged by Analyzer 0 % (0-5); Neutrophil # 5.24 X10^3/uL (2.7-7.7); Neutrophil % 63.7 % (47-70); Platelet Count 247 K/mm3 (150-450); RBC Distribution Width CV 12.4 % (11.6-14.6); RBC Distribution Width SD 38.5 fl (35.1-43.9); Red Blood Count 4.72 M/mm3 (4.6-6.2); White Blood Count 8.2 K/mm3 (4.4-11.0)
[2020-08-06 15:25] LABS: Anion Gap 6 (5-15); BUN 24 mg/dL (7-18); BUN/Creat Ratio 24.9 RATIO (10-20); Calcium,Total 8.5 mg/dL (8.5-10.1); Chloride 91 mmol/L (98-107); Creatinine, Serum 0.96 mg/dL (0.70-1.30); EST Glomerular Filtration Rate 82 mL/min (>60); Est Glom Filt Rate - Afr Amer 99 mL/min (>60); Glucose 181 mg/dL (74-106); Potassium 4.1 mmol/L (3.5-5.1); Sodium Level 125 mmol/L (136-145)
[2020-08-06 17:08] LABS: Anion Gap 3 (5-15); BUN 24 mg/dL (7-18); BUN/Creat Ratio 25.8 RATIO (10-20); Calcium,Total 8.3 mg/dL (8.5-10.1); Chloride 92 mmol/L (98-107); Creatinine, Serum 0.93 mg/dL (0.70-1.30); EST Glomerular Filtration Rate 85 mL/min (>60); Est Glom Filt Rate - Afr Amer 103 mL/min (>60); Glucose 138 mg/dL (74-106); Potassium 4.1 mmol/L (3.5-5.1); Sodium Level 127 mmol/L (136-145)
== END ==
PROVIDERS: PCP Family Medicine Geriatric Medicine; Visit Provider Family Medicine Geriatric Medicine
DX: G92 Toxic encephalopathy (principal)
CPT/HCPCS: 36415; 80048; 85025

== ENCOUNTER → 2020-08-10 13:01 | Outpatient (CLI) | payer MEDICARE, SELFPAY ==
[2019-11-01 03:30] VITALS: BMI 23.2
[2020-08-10 15:53] LABS: Urine Sodium 75 mmol/L (Not Establ.)
[2020-08-10 15:59] LABS: Anion Gap 7 (5-15); BUN 14 mg/dL (7-18); Calcium,Total 8.5 mg/dL (8.5-10.1); Chloride 91 mmol/L (98-107); Creatinine, Serum 0.82 mg/dL (0.70-1.30); EST Glomerular Filtration Rate 98 mL/min (>60); Est Glom Filt Rate - Afr Amer 118 mL/min (>60); Glucose 139 mg/dL (74-106); Potassium 4.2 mmol/L (3.5-5.1); Sodium Level 125 mmol/L (136-145)
[2020-08-10 16:44] LABS: Osmolality, Serum 272 mOsm/KG (280-301)
[2020-08-10 16:45] LABS: Osmolality, Urine 344 mOsm/KG
== END ==
PROVIDERS: PCP Family Medicine Geriatric Medicine; Visit Provider Family Medicine Geriatric Medicine
DX: E87.1 Hypo-osmolality and hyponatremia (principal)
CPT/HCPCS: 36415; 80048; 83930; 83935; 84300

== ENCOUNTER → 2020-08-19 09:05 | Outpatient (CLI) | payer MEDICARE, SELFPAY ==
[2019-11-01 03:30] VITALS: BMI 23.2
[2020-08-19 12:31] LABS: Anion Gap 4 (5-15); BUN 18 mg/dL (7-18); BUN/Creat Ratio 24.4 RATIO (10-20); Chloride 95 mmol/L (98-107); Creatinine, Serum 0.74 mg/dL (0.70-1.30); EST Glomerular Filtration Rate 111 mL/min (>60); Est Glom Filt Rate - Afr Amer 134 mL/min (>60); Glucose 143 mg/dL (74-106); Sodium Level 129 mmol/L (136-145)
== END ==
PROVIDERS: PCP Family Medicine Geriatric Medicine; Visit Provider Family Medicine Geriatric Medicine
DX: E87.1 Hypo-osmolality and hyponatremia (principal)
CPT/HCPCS: 36415; 80048

== ENCOUNTER 2020-08-20 09:05 | Emergency (ER) | payer MEDICARE, SELFPAY ==
[2019-11-01 03:30] VITALS: BMI 23.2
[2020-08-20 09:06] VITALS: BP 193/130; PULSE 77; RESP 17; TEMP 36.5; O2SAT 96; BMI 25.9
--- NOTE | 2020-08-20 09:30 | CT_ITS ---
STUDY: CT BRAIN WITHOUT CONTRAST REASON FOR EXAM: Male, 70 years old. Fall/ trauma RADIATION DOSAGE (If Supplied By Facility): CTDIvol = ( 44.99 ) mGy, DLP = ( 1659.71 ) mGycm TECHNIQUE: Transaxial CT imaging of the brain was performed without administration of intravenous contrast material. Coronal and sagittal reconstructions were performed. Individualized dose optimization techniques were used for this CT. COMPARISON: CT head without contrast 07/01/2019. FINDINGS: Normal soft tissue structures. Normal calvarium. Normal size ventricles and extra-axial spaces for the patient''s age. Normal white matter tracts of the cerebral hemispheres. Normal basal ganglia and thalami. Normal brainstem. Normal cerebellum. There is no intracranial hemorrhage. There are no findings of an acute ischemic infarction. Normal visualized paranasal sinuses. CT/Brain/Head without Contrast IMPRESSION: 1. No CT evidence of intracranial bleeding, acute ischemic infarct or acute intracranial abnormality. 2. Mild cerebral atrophy, normal for age and unchanged. 3. No interval change when compared to 07/01/2019. Electronically Signed: Fermin Bah MD at 9:58 EDT , Service support ,
--- NOTE | 2020-08-20 09:31 | ED.VISSUMM ---
- ER Visit Summary Date of Service: 08/20/20 Chief Complaint: [Fall] History of Present Illness: The patient is a 70 M [presents to the emergency department complaint of a fall that occurred this morning. Patient is currently in a shelter and the caregiver that is with him states that they were getting ready to leave for the workshop when he went upstairs to get his coat. The caregiver then heard a loud crash and went up to check on the patient and found that there was a large hole in the drywall. It was unclear what happened and the patient really could not give much history about what happened. She states that he really did not describe any pain but was concerned about the large hole in the wall and did not know what part of his body hit the wall. Patient denies any head or neck pain. He denies chest pain or shortness of breath. Denies abdominal pain. I am told patient had some blood work yesterday because he does have a history of low sodium. Patient ambulated into the department. He has not had any recent illness. Patient has had history of falls in the past. Patient denies loss of consciousness.] Physical Examination: [HEENT-PERRLA, EOMI. Cranial nerves II through XII grossly intact. TMs clear. Mucous membranes moist. No adenopathy. No external evidence of trauma to his head. No C-spine torso palpation. Patient has normal active range of motion is painless. Cardiovascular-regular rate and rhythm without murmur or ectopy Lungs-clear to auscultation, chest wall stable without crepitus or subcu emphysema Abdomen-normoactive bowel sounds, soft, nontender, no rebound or rigidity, no peritoneal signs. Extremities-intact ?4, normal range of motion, normal pulses, atraumatic. Patient moves all extremities without difficulty.] Test Results: [CT scan of the brain without contrast showed chronic involutional changes otherwise nothing acute. No evidence of trauma.] Emergency Department Course and Treatment: [I did review patient's lab work from yesterday and his sodium is now 129 which is an improvement from prior.] Treatment Plan: [Patient to follow-up with his primary care physician in 3 to 5 days.] Disposition: [Discharged home in stable condition] Impression: [Fall Closed head injury] This note was generated with Bil[employer] software. It may contain incorrect words, spelling, and punctuation that were not noted in review of the chart prior to signing ED Disposition - Plan for ED Patient: Referrals: Russell Koenig Chi, MD [Primary Care Provider] -
--- NOTE | 2020-08-20 10:06 | ED.DEP ---
ED Disposition - Plan for ED Patient: Instructions: ED Mechanical Fall, ED Head Injury (Adult) Referrals: Russell Koenig Chi, MD [Primary Care Provider] - 3-5 Days
[2020-08-20 10:14] VITALS: BP 180/102
== END 2020-08-20 10:15 | disposition home or self-care (01) ==
PROVIDERS: Emergency Provider Emergency Medicine; PCP Family Medicine Geriatric Medicine
DX: S09.90XA Unspecified injury of head, initial encounter (principal); W01.10XA Fall on same level from slipping, tripping and stumbling with subsequent striking against unspecified object, initial encounter; Y93.79 Activity, other specified sports and athletics; Y92.199 Unspecified place in other specified residential institution as the place of occurrence of the external cause; Y99.9 Unspecified external cause status; I10 Essential (primary) hypertension; Z79.899 Other long term (current) drug therapy
CPT/HCPCS: 70450; 99282

== ENCOUNTER 2020-10-14 11:00 | Outpatient (RCR) | payer MEDICARE, SELFPAY ==
--- NOTE | 2020-09-16 11:20 | HP.PTEVAL_ITS ---
Patient's Visit Information YESENIA SAUCEDO is a 70 year old M referred to Physical Therapy by Dr. Russell Koenig MD with a diagnosis of Gait Difficulty. Date of Evaluation: 09/16/20 Physical Therapist: Sophia Munoz DPT - Visit Plan Frequency: 2x /Week Duration: 4 Weeks Plan: Functional mobility and balance- LE and core strength/stabilization. HEP Given IE:Standing at sink: HR/TR, marching, hip abd, hip extn, seated LAQ and hamstring curl - Subjective He comes today with a staff memeber- he lives in a detention. They first noticed he was unstable about 2 years ago. He was coming for therapy and then COVID happened- then he stopped coming. He has had some falls- the last one was probably a week ago. He was going up the steps to fast and fell on his knees. They reports he has sustained a few falls- no injuries with his falls. They report he has hip pain. He was on a statin for years and now hes got aches and pains. The pain comes and goes. Pain is located in the hips and does not radiate. He takes Tylneol for his pain. Poor historian and unable to give numeric scale. Lives in a home with sttais- split levels- with no stairs to enter. Handrails on the stairs both ways. He goes to the store but is more sedentary during the day. Once it gets nice they will start going for walks outside. Does not use a cane or walker. He is pretty independent- drags the laundry basket down the stairs. 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 Does his own dressing and bathing. PMHx/Meds: no changes since scanned in chart. - Objective Posture: FH, RS- significant scoliosis- unable to correct with tactile cues but does sit taller and bring shoulders back. Gait: antalgic- posterior pelvic tilt with shortened stride length and flat foot progression. Balance: see FGA. HR/TR: able with UE A. SLS: weight shift but unable to SLS. Stairs: asc/desc 8 recip with 2 HR and SBA from PT- goes quickly with poor control. ROM: WFL. Strength: Core: fair minus, Hip: 4/5 throughout, Knee: 4+/5, Ankle: 4+/5. Flex: HS: severe, Gastroc: severe - Balance Scores Functional Gait Assessment Score: 14 % Disability: 53.3400 - Goals Goal 1:: Patient and staff will be I with HEP and progression Goal Time Frame: 4-6 Weeks Goal 2:: Patient will perform 15 sit to senior qa automation engineer 30 seconds Goal Time Frame: 4-6 Weeks Goal 3:: Patient will improve his functional gait assessment score to at least 24.9 which is normal for his age Goal Time Frame: 4-6 Weeks Goal 4:: Patient and caregiver will report no falls for 1 week Goal Time Frame: 4-6 Weeks Goal 5:: Patient will demo 4+/5 strength in bilateral LE Goal Time Frame: 4-6 Weeks - Rehabilitation Potential Physical Therapy Diagnosis: Patient presents with hypomobility- he has decreased strength, flex, proprioception and muscular endurance leading to poor posture, decreased balance and decreased participation with ADL's. Rehabilitation Potential: Fair - Anticipated Interventions Patient/Client Instruction: Educate patient on: Benefits of Fitness Program Therapeutic Exercise to Include: Strength training, Endurance training, Balance training, Coordination, Agility training, Body mechanics, Postural training, Flexibilty training, Gait and locomotor training, Neuromotor development, Dynamic Lumbar Stabilization For the Purpose of:: To improve muscle performance and motor function Thank you for the opportunity to evaluate your patient. For Medicare and Medicare HMO plans, please review the plan of care and approve it. It will need to be FAXED BACK to us at [phone] for Medicare purposes. For Medicare only, by signing this I certify the plan of care. Please let me know if there are questions or concerns regarding this plan of care. Physician Signature: Date:
--- NOTE | 2020-10-14 11:25 | HP.PTDCSUM ---
It has been my pleasure to treat YESENIA SAUCEDO referred by Dr. Russell Koenig MD, with the diagnosis of Gait Difficulty for a total of 7 visit(s). Discharge Date: Please see the following information for a summary of their discharge status. Subjective: Patient comes with caregiver and she reports that he has not been complaining of pain. He fell but they are unsure how he fell- they think he tripped over something. The falling is better but still an issue. % Improvement: 50 Objective/Function: Posture: FH, RS- significant scoliosis- unable to correct with tactile cues but does sit taller and bring shoulders back. Gait: antalgic- posterior pelvic tilt with shortened stride length and flat foot progression. HR/TR: able with UE A. SLS: weight shift but unable to SLS. Stairs: asc/desc 8 recip with 2 HR ROM: WFL. Strength: Core: fair minus, Hip: 4/5 throughout, Knee: 4+/5, Ankle: 4+/5. Flex: HS: severe, Gastroc: severe Goal 1:: Patient and staff will be I with HEP and progression Goal Progress: Goal Met Goal 2:: Patient will perform 15 sit to network technology instructor 30 seconds Goal Progress: Progressing Goal 3:: Patient will improve his functional gait assessment score to at least 24.9 which is normal for his age Goal Progress: Progressing Goal 4:: Patient and caregiver will report no falls for 1 week Goal Progress: Progressing Goal 5:: Patient will demo 4+/5 strength in bilateral LE Goal Progress: Progressing Plan: 10/14/2020: Gave HEP and d/c to I home exercise program- sit to stand and step ups added. Pt with one more session with PT next - anticipate d/c from skilled rehab to HEP. If there are questions or concerns regarding this patient's physical therapy, please feel free to call me at [phone]. Thank you for the referral of this patient. Sincerely, Sophia Munoz DPT
== END 2020-10-14 13:01 | disposition home or self-care (01) ==
LOC: PT 11:00
PROVIDERS: PCP Family Medicine Geriatric Medicine; Referring Provider Family Medicine Geriatric Medicine; Visit Provider Family Medicine Geriatric Medicine
DX: R26.9 Unspecified abnormalities of gait and mobility (principal)
CPT/HCPCS: 97110; 97162; 97164

== ENCOUNTER → 2020-12-02 11:14 | Outpatient (CLI) | payer MEDICARE, SELFPAY ==
[2020-12-02 11:56] LABS: Absolute Lymphocyte Count 2.38 X10^3/uL (0.83-4.51); Absolute Neutrophil Count 4.1 X10^3/uL (2.0-7.7); Basophil# 0.07 X10^3/uL; Basophil% 0.9 % (0-1); Eosinophil# 0.09 X10^3/uL; Eosinophils% 1.2 % (0-5); Hematocrit 42.2 % (40-54); Hemoglobin 14.7 g/dL (13.0-16.5); Lymphocyte # 2.38 X10^3/ul (0.83-4.51); Lymphocyte % 31.3 % (19-41); Mean Corp Hgb Conc 34.8 g/dL (32-36); Mean Corpuscular Hgb 29.5 pg (27.0-32.0); Mean Corpuscular Volume 84.6 fL (80-94); Mean Platelet Vol. 10.1 fl (6.2-12.0); Monocyte# 0.94 X10^3/uL; Monocyte% 12.4 % (0-10); NRBC Flagged by Analyzer 0 % (0-5); Neutrophil # 4.06 X10^3/uL (2.7-7.7); Neutrophil % 53.4 % (47-70); Platelet Count 225 K/mm3 (150-450); RBC Distribution Width CV 12.4 % (11.6-14.6); RBC Distribution Width SD 37.3 fl (35.1-43.9); Red Blood Count 4.99 M/mm3 (4.6-6.2); White Blood Count 7.6 K/mm3 (4.4-11.0)
[2020-12-02 12:10] LABS: Vitamin D,25 Hydroxy 14.3 ng/mL
[2020-12-02 12:24] LABS: ALB/GLOB Ratio 1.1 RATIO (0.9-2.4); AST(SGOT) 18 U/L (15-37); Alanine Aminotransfer ALT/SGPT 26 U/L (16-61); Albumin, Serum 3.7 g/dL (3.2-5.0); Alkaline Phosphatase 64 U/L (45-117); Anion Gap 7 (5-15); BUN 21 mg/dL (7-18); Calcium,Total 8.2 mg/dL (8.5-10.1); Chloride 92 mmol/L (98-107); Creatinine, Serum 0.75 mg/dL (0.70-1.30); EST Glomerular Filtration Rate 109 mL/min (>60); Est Glom Filt Rate - Afr Amer 132 mL/min (>60); Globulin 3.5 g/dL (2.2-4.2); Glucose 111 mg/dL (74-106); Potassium 4.6 mmol/L (3.5-5.1); Protein, Total 7.2 g/dL (6.4-8.2); Sodium Level 128 mmol/L (136-145); Thyroid Stim Hormone (TSH) 0.37 uIU/mL (0.358-3.74)
== END ==
PROVIDERS: PCP Family Medicine Geriatric Medicine; Visit Provider Family Medicine Geriatric Medicine
DX: I10 Essential (primary) hypertension (principal); E11.9 Type 2 diabetes mellitus without complications; E55.9 Vitamin D deficiency, unspecified
CPT/HCPCS: 36415; 80053; 82306; 84443; 85025

== ENCOUNTER 2020-12-10 18:27 | Emergency (ER) | payer MEDICARE, SELFPAY ==
[2020-12-10 18:29] VITALS: BP 197/94; PULSE 72; RESP 18; TEMP 36.8; O2SAT 97; BMI 23.1
[2020-12-10 18:39] VITALS: O2SAT 96
[2020-12-10 19:23] VITALS: BP 177/76; PULSE 69; RESP 18; O2SAT 96
--- NOTE | 2020-12-10 19:31 | CT_ITS ---
STUDY: CT BRAIN WITHOUT CONTRAST REASON FOR EXAM: Male, 70 years old. fall RADIATION DOSAGE (If Supplied By Facility): CTDIvol = ( 44.99 ) mGy, DLP = ( 829.85 ) mGycm TECHNIQUE: Transaxial CT imaging of the brain was performed without administration of intravenous contrast material. Individualized dose optimization techniques were used for this CT. COMPARISON: 08/20/2020. FINDINGS: Normal soft tissue structures. Normal calvarium. There is mild cerebral atrophy with widening of the extra-axial spaces and ventricular dilatation. There are areas of decreased attenuation within the white matter tracts of the supratentorial brain, consistent with microvascular disease changes. There is no intracranial hemorrhage. There are no findings of an acute ischemic infarction. Normal visualized paranasal sinuses. CT/Brain/Head without Contrast IMPRESSION: 1. No acute findings. 2. Mild microvascular ischemic changes. Atrophy. Electronically Signed: Jayda Camargo MD at 20:43 EDT Tel , Service support ,
[2020-12-10] MEDS: Lidocaine 5% Patch 1 PATCH TOPICAL (19:42)
--- NOTE | 2020-12-10 19:50 | RAD_ITS ---
STUDY: X-RAY - UNILATERAL RIBS ( LEFT ) WITH CHEST REASON FOR EXAM: Male, 70 years old. injury, pain TECHNIQUE - RIBS: 4 view(s) of the ribs. TECHNIQUE - CHEST: 1 COMPARISON: None. FINDINGS - RIBS: Normal visualized ribs without a demonstrated fracture. FINDINGS - CHEST: The lungs are clear and expanded. There is no demonstrated pleural abnormality. Normal size heart. Normal mediastinum and lianna. Normal visualized pulmonary arteries. Atherosclerotic calcification of the aorta. Normal visualized thoracic spine. Normal visualized ribs, clavicles, and shoulders. There is no demonstrated abnormality of the visualized soft tissue structures of the upper abdomen. RAD/Ribs Uni Min 3V w/PA Chest IMPRESSION: RIBS: Normal x-ray examination of the ribs. CHEST: Normal x-ray examination of the chest. Electronically Signed: Jayda Camargo MD at 21:06 EDT Tel , Service support ,
--- NOTE | 2020-12-10 21:16 | ED.VIS.FALL ---
HPI HPI - Fall History of Present Illness Chief Complaint: Fall Informant: patient Narrative Narrative: Patient is a 70-year-old male presented from his correction after mechanical fall. Patient lost his balance in the bathroom and fell onto the tile. He struck his left ribs. He denies any shortness of breath. He does complain of pain in that area. He does not think he hit his head. He denies any loss of consciousness. He is not on any blood thinners. PFSH [facility] Medical History Diabetes Hypertension Home Medications fluticasone propionate 2 spray NASAL DAILY 07/05/16 [History Last Taken 07/04/16] lubiprostone [Amitiza] 24 mcg PO BID 07/05/16 [History Last Taken 07/04/16] risperidone [Risperdal] 4 mg PO BID 07/05/16 [History Last Taken 07/04/16] sennosides-docusate sodium [Doc-Q-Lax] 1 ea PO BID 07/05/16 [History Last Taken 07/04/16] zolpidem [Ambien] 10 mg PO QHS 07/05/16 [History Last Taken 07/04/16] lisinopril-hydrochlorothiazide 1 ea PO BID 07/09/18 [History Last Taken Unknown] lorazepam 0.5 mg PO MOTUTHFRSA 07/09/18 [History Last Taken Unknown] benztropine 1 mg PO BID 10/31/19 [History Last Taken Unknown] risperidone 1 mg PO DAILY 10/31/19 [History Last Taken Unknown] albuterol sulfate 1 - 2 puff INHALATION Q4H PRN PRN #1 inhaler 11/03/19 [Rx Last Taken Unknown] beclomethasone dipropionate [Qvar RediHaler] 2 inh INHALATION BID 12/10/20 [History Last Taken Unknown] epinephrine [Epi E-Z Pen] 0.3 mg IM Q30M PRN 12/10/20 [History Last Taken Unknown] famotidine 40 mg PO DAILY 12/10/20 [History Last Taken Unknown] ibuprofen 400 mg PO Q6H PRN #20 tab 12/10/20 [Rx Last Taken Unknown] lidocaine [Salonpas (lidocaine)] 1 patch TOPICAL DAILY PRN #10 ea 12/10/20 [Rx Last Taken Unknown] metoprolol succinate 200 mg PO DAILY 12/10/20 [History Last Taken Unknown] sodium chloride 1,000 mg PO BID 12/10/20 [History Last Taken Unknown] Allergy/AdvReac Type Severity Reaction Status Date / Time shellfish derived Allergy Anaphylaxis Verified 12/10/20 18:28 Social History Smoking Status: Former smoker ROS ROS ED Constitutional Constitutional ED: Denies chills or fever(s) Eyes Eyes: Denies change in vision ENT ENT ED: Denies rhinorrhea or sore throat Cardiovascular Cardiovascular: Denies chest pain or palpitations Respiratory/Chest Respiratory/Chest: Denies cough or dyspnea Gastrointestinal Gastrointestinal: Denies abdominal pain or vomiting Musculoskeletal Musculoskeletal: Reports other Details: left sided rib pain ; Denies arthralgias or myalgias Integumentary Denies Abrasions or rash Neurologic Neurologic: Denies headache(s) or weakness Psychiatric Psychiatric: Denies anxiety or depression EXAM Physical Exam Const Vital Signs: 12/10/20 18:29 12/10/20 18:39 12/10/20 19:23 Temperature 98.2 F Temperature Source Oral Pulse Rate 72 69 Respiratory Rate 18 18 Respiratory Effort Normal Non-Labored Respiratory Depth Normal Respiratory Pattern Normal Blood Pressure 197/94 H 177/76 H Blood Pressure Mean 128 109 Pulse Ox 97 96 96 Oxygen Delivery Method Room Air Room Air Room Air Positive well nourished and well developed General Appearance ED: well developed HEENT Reports normocephalic and TM's clear HEENT Narrative: No signs of head trauma. No septal hematoma. No signs of basilar skull fracture. No malocclusion. atraumatic; Negative for contusion or hematoma Tympanic Membrane ED: Yes TM's clear Eyes PERRL and EOMs intact bilaterally Neck full ROM and supple Neck Narrative: Normal range of motion. No midline tenderness. General: Negative for tenderness Chest Wall inspection of chest normal Chest Narrative: Patient has tenderness to palpation of the left lateral ribs but no associated crepitus or deformity appreciated. Resp normal respiratory effort and clear to auscultation bilaterally Cardio regular rate, regular rhythm and no murmurs GI non-tender and non-distended Auscultation: normoactive bowel sounds Palpation: soft Extremity normal to inspection, full ROM and normal capillary refill Extremity Narrative: Pelvis is stable. No deformity or tenderness of the extremities. Neuro CN's II-XII intact bilaterally, moves all extremities, no focal motor deficits and no sensory deficits noted Sensorium / Orientation: alert and oriented to person Psych mental status grossly normal Skin Lesions: no lesions Rashes: no rashes Trauma: Negative for abrasion MDM MDM MDM Narrative Medical decision making narrative: Patient evaluated after mechanical fall. He appears nontoxic in no acute distress. Is complaining of left-sided rib pain. Rib series does not show an acute process. Head CT obtained which does not show any signs of intracranial injury. There is no signs of head trauma on physical exam. It sound like this was a mechanical fall and I do not think requires EKG or evaluation for syncope. Patient is given a Lidoderm patch in the ER. To be treated with pain control for rib contusion. X-ray interpreted by myself as well as radiology does not show any acute fracture. No finding system with pneumothorax. Patient is given incentive spirometer to help reduce chance of pneumonia. NSAID therapy for pain control. Lab Data Attestation: I reviewed the patient's lab results. Radiography Diagnostic Testing: Radiology Impression Brain CT 12/10/20 19:31 IMPRESSION: 1. No acute findings. 2. Mild microvascular ischemic changes. Atrophy. Electronically Signed: Jayda Camargo MD at 20:43 EDT Tel , Service support , Ribs w/Chest X-Ray 12/10/20 19:50 IMPRESSION: RIBS: Normal x-ray examination of the ribs. CHEST: Normal x-ray examination of the chest. Electronically Signed: Jayda Camargo MD at 21:06 EDT Tel , Service support , Discharge Plan Triage Chief Complaint: Fall ED Provider: Yu Gutierres Dx/Rx/DC Orders Clinical Impression: Contusion of rib on left side, Fall Instructions: ED Contusion, Rib, ED Fall Prevention Prescriptions: New ibuprofen 400 mg tablet 400 mg PO Q6H PRN (Reason: pain) Qty: 20 RF: 0 lidocaine [Salonpas (lidocaine)] 4 % adhesive patch,medicated 1 patch topical DAILY PRN (Reason: pain) Qty: 10 RF: 0 No Action risperidone [Risperdal] 4 MG tablet 4 mg PO BID RF: 0 sennosides-docusate sodium [Doc-Q-Lax] 1 EACH tablet 1 ea PO BID RF: 0 zolpidem [Ambien] 10 MG tablet 10 mg PO QHS RF: 0 fluticasone propionate 1 SPRAY spray,suspension 2 spray NASAL DAILY RF: 0 lubiprostone [Amitiza] 24 MCG capsule 24 mcg PO BID RF: 0 lisinopril-hydrochlorothiazide 1 EACH tablet 1 ea PO BID RF: 0 lorazepam 0.5 tablet 0.5 mg PO MOTUTHFRSA RF: 0 benztropine 1 MG tablet 1 mg PO BID RF: 0 risperidone 1 MG tablet 1 mg PO DAILY RF: 0 albuterol sulfate 1 PUFF inhaler 1 - 2 puff inhalation Q4H PRN PRN (Reason: dyspnea, wheezing) Qty: 1 RF: 0 metoprolol succinate 200 mg Tablet Extended Release 24 Hr 200 mg PO DAILY RF: 0 famotidine 40 mg Tablet 40 mg PO DAILY RF: 0 sodium chloride 1 gram Tablet 1,000 mg PO BID RF: 0 epinephrine [Epi E-Z Pen] 0.3 mg/0.3 mL Auto-Injector 0.3 mg IM Q30M PRN (Reason: Allergic Reaction) RF: 0 Qvar RediHaler 80 mcg/actuation Hfa Aerosol Breath Activated 2 inh INHALATION BID RF: 0 Primary Care Provider: Russell Koenig Chi Referrals: Russell Koengi Chi, MD [Primary Care Provider] - Activity Restrictions/Additional Instructions: Use incentive spirometer every hour while awake to help prevent pneumonia. Use [id number] 4% Lidoderm patches to the area of pain. Disposition Disposition: Home, Self Care
--- NOTE | 2020-12-10 21:58 | ED.RN ---
spoke with Gloria from [facility]. updated her on pt getting taxi home and prescriptions being sent to [facility] as well as use of incentive spirometer.
== END 2020-12-10 22:33 | disposition home or self-care (01) ==
PROVIDERS: Emergency Provider Emergency Medicine; PCP Family Medicine Geriatric Medicine
DX: S20.212A Contusion of left front wall of thorax, initial encounter (principal); W01.0XXA Fall on same level from slipping, tripping and stumbling without subsequent striking against object, initial encounter; Y93.9 Activity, unspecified; Y92.192 Bathroom in other specified residential institution as the place of occurrence of the external cause; I10 Essential (primary) hypertension; Z79.899 Other long term (current) drug therapy; Z87.891 Personal history of nicotine dependence
CPT/HCPCS: 70450; 71101; 99251; 99284; G0463

== ENCOUNTER → 2020-12-16 12:04 | Outpatient (CLI) | payer MEDICARE, SELFPAY ==
[2020-12-10 18:29] VITALS: BMI 23.1
[2020-12-16 13:05] LABS: Anion Gap 6 (5-15); BUN 22 mg/dL (7-18); BUN/Creat Ratio 29.4 RATIO (10-20); Calcium,Total 8.7 mg/dL (8.5-10.1); Chloride 97 mmol/L (98-107); Creatinine, Serum 0.75 mg/dL (0.70-1.30); EST Glomerular Filtration Rate 109 mL/min (>60); Est Glom Filt Rate - Afr Amer 132 mL/min (>60); Glucose 186 mg/dL (74-106); Potassium 4.2 mmol/L (3.5-5.1); Sodium Level 132 mmol/L (136-145)
== END ==
PROVIDERS: PCP Family Medicine Geriatric Medicine; Visit Provider Family Medicine Geriatric Medicine
DX: E87.1 Hypo-osmolality and hyponatremia (principal)
CPT/HCPCS: 36415; 80048

== ENCOUNTER 2021-06-02 11:27 | Outpatient (CLI) | payer MEDICARE, SELFPAY ==
[2021-06-02 12:01] LABS: Absolute Lymphocyte Count 2.88 X10^3/uL (0.83-4.51); Absolute Neutrophil Count 4.8 X10^3/uL (2.0-7.7); Basophil# 0.05 X10^3/uL; Basophil% 0.6 % (0-1); Eosinophil# 0.17 X10^3/uL; Eosinophils% 1.9 % (0-5); Hematocrit 41.5 % (40-54); Hemoglobin 14.1 g/dL (13.0-16.5); Lymphocyte # 2.88 X10^3/ul (0.83-4.51); Lymphocyte % 32.3 % (19-41); Mean Corpuscular Volume 88.3 fL (80-94); Mean Platelet Vol. 11.1 fl (6.2-12.0); Monocyte# 0.94 X10^3/uL; Monocyte% 10.5 % (0-10); NRBC Flagged by Analyzer 0 % (0-5); Neutrophil # 4.81 X10^3/uL (2.7-7.7); Neutrophil % 53.8 % (47-70); Platelet Count 205 K/mm3 (150-450); RBC Distribution Width CV 12.5 % (11.6-14.6); RBC Distribution Width SD 40.8 fl (35.1-43.9); White Blood Count 8.9 K/mm3 (4.4-11.0)
[2021-06-02 12:41] LABS: Vitamin D,25 Hydroxy 12.3 ng/mL
[2021-06-02 12:45] LABS: ALB/GLOB Ratio 0.9 RATIO (0.9-2.4); AST(SGOT) 15 U/L (15-37); Alanine Aminotransfer ALT/SGPT 28 U/L (16-61); Albumin, Serum 3.5 g/dL (3.2-5.0); Alkaline Phosphatase 74 U/L (45-117); Anion Gap 6 (5-15); BUN 31 mg/dL (7-18); BUN/Creat Ratio 35.1 RATIO (10-20); Calcium,Total 8.7 mg/dL (8.5-10.1); Chloride 100 mmol/L (98-107); Creatinine, Serum 0.88 mg/dL (0.70-1.30); EST Glomerular Filtration Rate 90 mL/min (>60); Est Glom Filt Rate - Afr Amer 109 mL/min (>60); Glucose 126 mg/dL (74-106); Potassium 4.1 mmol/L (3.5-5.1); Protein, Total 7.5 g/dL (6.4-8.2); Sodium Level 135 mmol/L (136-145); Thyroid Stim Hormone (TSH) 0.49 uIU/mL (0.358-3.74)
== END 2021-06-02 23:59 | disposition short-term general hospital (02) ==
LOC: POLAB3 11:28
PROVIDERS: PCP Family Medicine Geriatric Medicine; Visit Provider Family Medicine Geriatric Medicine
DX: E11.9 Type 2 diabetes mellitus without complications (principal); E55.9 Vitamin D deficiency, unspecified; I10 Essential (primary) hypertension
CPT/HCPCS: 36415; 80053; 82306; 84443; 85025

== ENCOUNTER → 2021-12-01 | Outpatient (CLI) | payer MEDICARE, SELFPAY ==
[2021-12-01 12:50] LABS: Absolute Neutrophil Count 4.9 X10^3/uL (2.0-7.7); Basophil# 0.05 X10^3/uL; Basophil% 0.6 % (0-1); Eosinophil# 0.14 X10^3/uL; Eosinophils% 1.6 % (0-5); Hemoglobin 14.4 g/dL (13.0-16.5); Lymphocyte % 29.2 % (19-41); Mean Corp Hgb Conc 34.3 g/dL (32-36); Mean Corpuscular Volume 87.5 fL (80-94); Mean Platelet Vol. 10.6 fl (6.2-12.0); Monocyte# 0.93 X10^3/uL; Monocyte% 10.9 % (0-10); NRBC Flagged by Analyzer 0 % (0-5); Neutrophil % 57.1 % (47-70); Platelet Count 207 K/mm3 (150-450); RBC Distribution Width CV 13.2 % (11.6-14.6); RBC Distribution Width SD 42.4 fl (35.1-43.9); White Blood Count 8.6 K/mm3 (4.4-11.0)
[2021-12-01 13:03] LABS: Vitamin D,25 Hydroxy 14.8 ng/mL
[2021-12-01 13:14] LABS: ALB/GLOB Ratio 0.9 RATIO (0.9-2.4); AST(SGOT) 23 U/L (15-37); Alanine Aminotransfer ALT/SGPT 33 U/L (16-61); Albumin, Serum 3.5 g/dL (3.2-5.0); Alkaline Phosphatase 57 U/L (45-117); Anion Gap 7 (5-15); BUN 26 mg/dL (7-18); BUN/Creat Ratio 30.2 RATIO (10-20); Chloride 97 mmol/L (98-107); Creatinine, Serum 0.86 mg/dL (0.70-1.30); EST Glomerular Filtration Rate 92 mL/min (>60); Est Glom Filt Rate - Afr Amer 112 mL/min (>60); Glucose 127 mg/dL (74-106); Potassium 4.2 mmol/L (3.5-5.1); Protein, Total 7.5 g/dL (6.4-8.2); Sodium Level 133 mmol/L (136-145); Thyroid Stim Hormone (TSH) 0.48 uIU/mL (0.358-3.74)
== END | disposition home or self-care (01) ==
LOC: POLAB3 09:38
PROVIDERS: PCP Family Medicine Geriatric Medicine; Visit Provider Family Medicine Geriatric Medicine
DX: E11.9 Type 2 diabetes mellitus without complications (principal); E55.9 Vitamin D deficiency, unspecified; I10 Essential (primary) hypertension
CPT/HCPCS: 36415; 80053; 82306; 84443; 85025

== ENCOUNTER → 2022-03-01 | Outpatient (CLI) | payer MEDICARE, SELFPAY ==
--- NOTE | 2022-03-01 10:39 | RAD_ITS ---
STUDY: X-RAY - PELVIS AND BILATERAL HIPS REASON FOR EXAM: Male, 72 years old. HIP PAIN TECHNIQUE: AP view of the pelvis.? 2 views of the right hip, and 2 views of the left hip were obtained. COMPARISON: None. FINDINGS: There is a non-specific bowel gas pattern. Normal visualized soft tissue structures. Normal bilateral iliac wings, sacroiliac joints and visualized sacrum. Normal bilateral superior and inferior pubic rami. Normal pubic symphysis. Normal bilateral ischial tuberosities. Normal visualized right femoral head. Normal right acetabulum. Normal right hip joint. Normal visualized left femoral head. Normal left acetabulum. Normal left hip joint. RAD/Hips B/L min 2 views w/ Pelvis IMPRESSION: Normal x-ray examination of the pelvis and bilateral hips. Electronically Signed: Phil Bravo MD at 21:34 EDT ,
--- NOTE | 2022-03-01 10:39 | RAD_ITS ---
STUDY: X-RAY - LEFT KNEE REASON FOR EXAM: Male, 72 years old. PAIN TECHNIQUE: 4 view(s) of the knee. COMPARISON: None. FINDINGS: BONES: No fracture demonstrated. Mild narrowing of the patellofemoral joint space. JOINTS: No dislocation. SOFT TISSUES: Soft tissue swelling anteriorly. RAD/Knee 4 or More Views IMPRESSION: Soft tissue swelling. No evidence of fracture. Mild degenerative changes. Electronically Signed: Quiana Ibarra MD at 7:55 EDT ,
--- NOTE | 2022-03-01 10:39 | RAD_ITS ---
STUDY: X-RAY - RIGHT KNEE REASON FOR EXAM: Male, 72 years old. PAIN TECHNIQUE: 4 view(s) of the knee. COMPARISON: None. FINDINGS: BONES: No fracture demonstrated. Mild narrowing of patellofemoral joint space. JOINTS: No dislocation. SOFT TISSUES: Mild soft tissue swelling anteriorly. RAD/Knee 4 or More Views IMPRESSION: Mild soft tissue swelling. No evidence of fracture. Mild degenerative changes. Electronically Signed: Quiana Ibarra MD at 7:56 EDT ,
== END | disposition home or self-care (01) ==
PROVIDERS: PCP Family Medicine Geriatric Medicine; Referring Provider Family Medicine Geriatric Medicine; Visit Provider Family Medicine Geriatric Medicine
DX: M25.551 Pain in right hip (principal); M25.552 Pain in left hip; M17.0 Bilateral primary osteoarthritis of knee
CPT/HCPCS: 73521; 73564

== ENCOUNTER → 2022-12-14 | Outpatient (CLI) | payer MEDICARE, SELFPAY ==
[2022-12-14 13:20] LABS: Absolute Lymphocyte Count 2.16 X10^3/uL (0.83-4.51); Absolute Neutrophil Count 5.5 X10^3/uL (2.0-7.7); Basophil# 0.05 X10^3/uL; Basophil% 0.6 % (0-1); Eosinophil# 0.16 X10^3/uL; Eosinophils% 1.8 % (0-5); Hematocrit 43.4 % (40-54); Hemoglobin 14.6 g/dL (13.0-16.5); Lymphocyte # 2.16 X10^3/ul (0.83-4.51); Lymphocyte % 24.2 % (19-41); Mean Corp Hgb Conc 33.6 g/dL (32-36); Mean Corpuscular Hgb 30.3 pg (27.0-32.0); Mean Platelet Vol. 10.9 fl (6.2-12.0); Monocyte# 0.93 X10^3/uL; Monocyte% 10.4 % (0-10); NRBC Flagged by Analyzer 0 % (0-5); Neutrophil # 5.53 X10^3/uL (2.7-7.7); Neutrophil % 61.8 % (47-70); Platelet Count 233 K/mm3 (150-450); RBC Distribution Width CV 12.4 % (11.6-14.6); RBC Distribution Width SD 40.9 fl (35.1-43.9); Red Blood Count 4.82 M/mm3 (4.6-6.2); White Blood Count 8.9 K/mm3 (4.4-11.0)
[2022-12-14 13:37] LABS: Vitamin D,25 Hydroxy 11.7 ng/mL
[2022-12-14 13:41] LABS: ALB/GLOB Ratio 0.9 RATIO (0.9-2.4); AST(SGOT) 48 U/L (15-37); Alanine Aminotransfer ALT/SGPT 60 U/L (16-61); Albumin, Serum 3.6 g/dL (3.2-5.0); Alkaline Phosphatase 62 U/L (45-117); Anion Gap 6 (5-15); BUN 20 mg/dL (7-18); BUN/Creat Ratio 21.8 RATIO (10-20); Calcium,Total 9.2 mg/dL (8.5-10.1); Chloride 103 mmol/L (98-107); Creatinine, Serum 0.92 mg/dL (0.70-1.30); EST Glomerular Filtration Rate 86 mL/min (>60); Est Glom Filt Rate - Afr Amer 104 mL/min (>60); Globulin 4.1 g/dL (2.2-4.2); Glucose 157 mg/dL (74-106); Potassium 4.3 mmol/L (3.5-5.1); Protein, Total 7.7 g/dL (6.4-8.2); Sodium Level 134 mmol/L (136-145); Thyroid Stim Hormone (TSH) 0.14 uIU/mL (0.358-3.74)
== END | disposition home or self-care (01) ==
PROVIDERS: PCP Family Medicine Geriatric Medicine; Visit Provider Family Medicine Geriatric Medicine
DX: E11.65 Type 2 diabetes mellitus with hyperglycemia (principal); I10 Essential (primary) hypertension; E55.9 Vitamin D deficiency, unspecified
CPT/HCPCS: 36415; 80053; 82306; 84443; 85025

== ENCOUNTER 2022-12-18 13:56 | Emergency (ER) | payer MEDICARE, SELFPAY ==
[2022-12-18 13:57] VITALS: BP 154/120; PULSE 72; RESP 14; TEMP 36.7; O2SAT 95; BMI 27.9
[2022-12-18 14:00] VITALS: BP 180/80
--- NOTE | 2022-12-18 14:35 | EKG12_ITS ---
Test Reason : GENERAL ILLNESS Blood Pressure : / mmHG Vent. Rate : 068 BPM Atrial Rate : 068 BPM P-R Int : 260 ms QRS Dur : 096 ms QT Int : 360 ms P-R-T Axes : 050 058 082 degrees QTc Int : 382 ms Sinus rhythm with 1st degree A-V block Nonspecific T wave abnormality Abnormal ECG Confirmed by LILLIAN HURLEY, ANITA ([id number]), editor index SHERRILL LANDAVERDE ([id number]) on 12/19/2022 1:30:17 PM Referred By: Confirmed By:ANITA SNYDER MD
--- NOTE | 2022-12-18 14:36 | EDS_ITS ---
HPI History of Present Illness Chief Complaint: General Illness Detail of Chief Complaint: Generalized fatigue. Informant: patient Onset/Context/Timing Onset: Today Context: Gradual Onset Timing: Continuous Current Severity: Mild Narrative Narrative: 72-year-old male lives in a long-term history of hypertension, diabetes and recently tested COVID-positive on Monday. Just that he feels fatigued. He denies chest pain. Denies fever or chills. Denies vomiting. Reportedly the long-term called the squad because he was tachycardic and short of breath. When squad got there his vital signs were unremarkable and brought him in for evaluation. Patient himself is a limited informant. Prior similar symptoms: Yes Recent Illness/Hospitalization: No PFSH [facility] Medical History Diabetes Hypertension Home Medications fluticasone propionate 50 mcg/actuation nasal spray,suspension 2 spray DAILY 07/05/16 [History Last Taken 07/04/16] lubiprostone 24 mcg capsule (Amitiza) 24 mcg PO BID 07/05/16 [History Last Taken 07/04/16] risperidone 4 mg tablet (Risperdal) 4 mg PO BID 07/05/16 [History Last Taken 07/04/16] sennosides 8.6 mg-docusate sodium 50 mg tablet (Doc-Q-Lax) 1 ea PO BID 07/05/16 [History Last Taken 07/04/16] zolpidem 10 mg tablet (Ambien) 10 mg PO QHS 07/05/16 [History Last Taken 07/04/16] lisinopril 20 mg-hydrochlorothiazide 12.5 mg tablet 1 ea PO BID 07/09/18 [History Last Taken Unknown] lorazepam 0.5 mg tablet 0.5 mg PO MOTUTHFRSA 07/09/18 [History Last Taken Unkno wn] benztropine 1 mg tablet 1 mg PO BID 10/31/19 [History Last Taken Unknown] risperidone 1 mg tablet 1 mg PO DAILY 10/31/19 [History Last Taken Unknown] albuterol sulfate 90 mcg/actuation aerosol inhaler 1 - 2 puff inhalation Q4H PRN PRN dyspnea, wheezing ##1 11/03/19 [Rx Last Taken Unknown] beclomethasone dipropionate 80 mcg/actuation HFA breath activated aerosol (Qvar RediHaler) 2 inh inhalation BID 12/10/20 [History Last Taken Unknown] epinephrine 0.3 mg/0.3 mL injection, auto-injector 0.3 mg IM Q30M PRN Allergic Reaction 12/10/20 [History Last Taken Unknown] famotidine 40 mg tablet 40 mg PO DAILY 12/10/20 [History Last Taken Unknown] ibuprofen 400 mg tablet 400 mg PO Q6H PRN pain #20 tabs 12/10/20 [Rx Last Taken Unknown] lidocaine 4 % topical patch (Salonpas (lidocaine)) 1 patch topical DAILY PRN pain #10 ea 12/10/20 [Rx Last Taken Unknown] metoprolol succinate 200 mg tablet,extended release 24 hr 200 mg PO DAILY 12/10/20 [History Last Taken Unknown] sodium chloride 1 gram tablet 1,000 mg PO BID 12/10/20 [History Last Taken Unknown] Allergy/AdvReac Type Severity Reaction Status Date / Time shellfish derived Allergy Anaphylaxis Verified 12/18/22 13:59 Social History Smoking Status: Former smoker ROS ROS ED ROS Narrative Your right. Cough. Fatigue. Review of Systems ROS Unobtainable: Denies due to encephalopathy Constitutional Constitutional ED: Reports fever(s) and subjective; Denies chills Eyes Eyes: Denies blurry vision ENT ENT ED: Denies ear pain Cardiovascular Cardiovascular: Denies chest pain Respiratory/Chest Respiratory/Chest: Denies cough Gastrointestinal Gastrointestinal: Denies abdominal pain Genitourinary Genitourinary ED: Denies dysuria Musculoskeletal Musculoskeletal: Denies arthralgias Integumentary Denies abscess Neurologic Neurologic: Denies headache(s) Psychiatric Psychiatric: Denies anxiety Endocrine Endocrinology: Denies cold intolerance Hematologic/Lymphatic Hematologic/Lymphatic: Reports none Allergic/Immunologic Allergic/Immunologic ED: Denies mouth swelling, tongue swelling or urticaria EXAM Physical Exam Narrative Exam Narrative: 69-year-old male no acute distress. Sitting upright in bed. No one is present in room. Vital signs are stable. Initial blood pressure 154 120 repeat 180/80. Pulse ox 95% on room air no hypoxia. H EENT exam dry mucous membranes otherwise unremarkable. No facial droop. Normal speech. Neck nontender. No JVD. No lymphadenopathy. Lungs clear to auscultation bilaterally. Heart regular rhythm rate about 70 no murmur. Chest were nontender. Abdomen soft nontender. No peritoneal signs. No distention. Moving all 4 extremities. Calves are nontender without edema or cords. Neurologically is awake and alert. Answers questions. Follows commands. Const Vital Signs: 12/18/22 13:57 12/18/22 14:00 12/18/22 15:00 Temperature 98.0 F Temperature Source Temporal Pulse Rate 72 Respiratory Rate 14 Respiratory Effort Respiratory Pattern Blood Pressure 154/120 H 180/80 H Blood Pressure Mean 131 113 Pulse Ox 95 99 Oxygen Delivery Method Room Air Room Air 12/18/22 15:00 Temperature Temperature Source Pulse Rate Respiratory Rate Respiratory Effort Normal Respiratory Pattern Normal Blood Pressure Blood Pressure Mean Pulse Ox Oxygen Delivery Method Positive well nourished and well developed; Negative for cachectic, contractures or unkempt General Appearance ED: well developed and NAD; Negative for unkempt, cachectic, contractures, cyanotic, diaphoretic or pallor Nutritional Appearance: Negative for cachectic HEENT Reports dry mucous membranes; Denies moist mucous membranes Negative for trauma or tenderness Mouth ED: Yes dry mucous membranes Mouth: dry mucous membranes Eyes PERRL and EOMs intact bilaterally General Eye ED: Negative for pale conjunctiva or scleral icterus Neck no lymphadenopathy, supple and no JVD General: Negative for tenderness Lymph Lymphatic: Negative for other Chest Wall inspection of chest normal and palpation of chest normal Chest: Negative for other Resp normal respiratory effort and clear to auscultation bilaterally Effort and Inspection: Negative for retractions Auscultation: Negative for rales, rhonchi or wheezes Cardio regular rate, regular rhythm, S1 normal heart sound, S2 normal heart sound and no murmurs GI normal to inspection, nondistended, normoactive bowel sounds, non-tender, non- distended and no masses Inspection: Negative for abdominal distention Auscultation: normoactive bowel sounds Palpation: soft; Negative for tender or guarding Back/Spine no CVA tenderness General Back: Negative for CVA tenderness Cervical Spine: Negative for cervical spine tenderness Thoracic Spine / Upper Back: Negative for thoracic spinal tenderness Lumbar Spine / Lower Back: Negative for lumbar spinal tenderness Extremity normal to inspection General Extremety ED: Negative for edema or tenderness General Extremity: Negative for edema Neuro No oriented x3 and CN's II-XII intact bilaterally Sensorium / Orientation: alert; Negative for lethargic or stuporous Motor Exam: strength 5/5 throughout Psych mental status grossly normal Appearance: Negative for unkempt Attitude: No agitated Mood & Affect: Negative for depressed, anxious or tearful Skin no rashes or lesions noted, no wounds and skin turgor normal General Skin Exam: Negative for jaundice or pallor Lesions: No lesion noted Rashes: No rashes noted Trauma: Negative for abrasion Wounds: Negative for wounds noted MDM MDM MDM Narrative Medical decision making narrative: 72-year-old male from a long-term limited informant reportedly COVID and flu positive on Monday. Complaining of fatigue. Undergo work-up. His exam is benign other than he might be dehydrated. Be treated with a liter normal saline. Repeat exam at 3:56 PM patient doing well. We went over his test results. He will be discharged home. History & Record Review Discussion w/independent historian: Patient Lab Data Attestation: I reviewed the patient's lab results. Lab results narrative: CBC shows white count 13.4. H&H 12.5 and 38.1. Platelets 182. Electrolytes show sodium 133. Gap is 6. BUN and creatinine 20 and 0.8. Glucose 201. Troponin is 3. Urinalysis is normal. No white or red cells. No nitrates nor bacteria. Labs: Laboratory Results - last 24 hr 12/18/22 12/18/22 14:58 15:25 WBC 13.4 H RBC 4.09 L Hgb 12.5 L Hct 38.1 L MCV 93.2 MCH 30.6 MCHC 32.8 RDW Std Deviation 42.8 RDW Coeff of Michelle 12.6 Plt Count 182 MPV 10.1 Immature Gran % (Auto) 0.600 Neut % (Auto) 70.7 H Lymph % (Auto) 17.5 L [place] % (Auto) 10.0 Eos % (Auto) 0.8 Baso % (Auto) 0.4 Absolute Neuts (auto) 9.5 H Absolute Lymphs (auto) 2.35 Nucleated RBC % 0 Sodium 133 L Potassium 3.8 Chloride 98 Carbon Dioxide 29.0 Anion Gap 6 BUN 20 H Creatinine 0.84 Estim Creat Clear Calc 70.68 Est GFR (MDRD) Af Amer 115 Est GFR (MDRD) Non-Af 95 BUN/Creatinine Ratio 23.8 H Glucose 201 H Calcium 8.1 L Troponin I High Sens 3 Urine Color Yellow Urine Clarity Clear Urine pH 6.0 Ur Specific [place] 1.015 Urine Protein Negative Urine Glucose (UA) 50 H Urine Ketones Negative Urine Occult Blood Negative Urine Nitrite Negative Urine Bilirubin Negative Urine Urobilinogen Normal Ur Leukocyte Esterase Negative Urine RBC 0 SEEN Urine WBC 0 SEEN Ur Squamous Epith Cells 0-5 SEEN Urine Bacteria 0 SEEN Urine Mucus 0 SEEN Radiography Chest X-Ray - ED: 1 View, Read by ED Physician, Read by Radiologist, Normal, Heart, Lungs, Mediastinum, Bony Structures, No Acute Disease and Chronic Changes Diagnostic Testing: Clinical Impression(s) from Imaging Studies Chest X-Ray 12/18/22 15:10 IMPRESSION: There are no acute findings. Electronically Signed: Lavon Magallon MD at 15:23 EDT Reading Location ID and State: [facility] / [place] , Service support , Chest x-ray, portable, single view shows no acute process. Cardiac silhouette. Normal lung monsivais. No infiltrates. Interpreted both by myself and radiologist. We agree. Rhythm Strip Rhythm Strip: Sinus Rhythm Rate: 68 Ectopy: None EKG Initial EKG: Attestation: I personally reviewed and interpreted this EKG as follows: Interpretation: Sinus Rhythm and No Acute Injury Pattern Comments: Feels with the resident suggest CBC and chemistry normal sinus rhythm rate of 68 no acute signs of WI or ischemia. First-degree AV block with a [place] interval of 260. Fair for Probably got about alcohol like a gallstone so what continue with the [place] in 12 Thanks right more sleepy exam [ Screening labs right leg she actually think he is diabetic she is texting that Discharge Plan Triage Chief Complaint: General Illness ED Provider: Lawrence Brown Dx/Rx/DC Orders Clinical Impression: COVID, Fatigue Prescriptions: No Action risperidone [Risperdal] 4 MG tablet 4 mg PO BID sennosides-docusate sodium [Doc-Q-Lax] 1 EACH tablet 1 ea PO BID zolpidem [Ambien] 10 MG tablet 10 mg PO QHS fluticasone propionate 1 SPRAY spray,suspension 2 spray NASAL DAILY lubiprostone [Amitiza] 24 MCG capsule 24 mcg PO BID lisinopril-hydrochlorothiazide 1 EACH tablet 1 ea PO BID lorazepam 0.5 tablet 0.5 mg PO MOTUTHFRSA benztropine 1 MG tablet 1 mg PO BID risperidone 1 MG tablet 1 mg PO DAILY Rx Instructions: IN AFTERNOON albuterol sulfate 1 PUFF inhaler 1 - 2 puff inhalation Q4H PRN PRN (Reason: dyspnea, wheezing) Qty: 1 0RF metoprolol succinate 200 mg Tablet Extended Release 24 Hr 200 mg PO DAILY famotidine 40 mg Tablet 40 mg PO DAILY sodium chloride 1 gram Tablet 1,000 mg PO BID epinephrine [Epi E-Z Pen] 0.3 mg/0.3 mL Auto-Injector 0.3 mg IM Q30M PRN (Reason: Allergic Reaction) Qvar RediHaler 80 mcg/actuation Hfa Aerosol Breath Activated 2 inh INHALATION BID ibuprofen 400 mg tablet 400 mg PO Q6H PRN (Reason: pain) Qty: 20 0RF lidocaine [Salonpas (lidocaine)] 4 % adhesive patch,medicated 1 patch topical DAILY PRN (Reason: pain) Qty: 10 0RF Primary Care Provider: Russell Koenig Chi Referrals: Russell Koenig Chi, MD [Primary Care Provider] - 3-5 Days if not improving Activity Restrictions/Additional Instructions: Plenty of fluids and rest. His lab work today in the emergency room and chest x-ray were unremarkable. Just follow-up with his primary care physician if not improving. My understanding is he was recently tested and was COVID-positive all his symptoms could be from that. Disposition Disposition: Home, Self Care
[2022-12-18 15:00] VITALS: O2SAT 99
[2022-12-18 15:02] LABS: Absolute Lymphocyte Count 2.35 X10^3/uL (0.83-4.51); Absolute Neutrophil Count 9.5 X10^3/uL (2.0-7.7); Basophil# 0.06 X10^3/uL; Basophil% 0.4 % (0-1); Eosinophil# 0.11 X10^3/uL; Eosinophils% 0.8 % (0-5); Hematocrit 38.1 % (40-54); Hemoglobin 12.5 g/dL (13.0-16.5); Lymphocyte # 2.35 X10^3/ul (0.83-4.51); Lymphocyte % 17.5 % (19-41); Mean Corp Hgb Conc 32.8 g/dL (32-36); Mean Corpuscular Hgb 30.6 pg (27.0-32.0); Mean Corpuscular Volume 93.2 fL (80-94); Mean Platelet Vol. 10.1 fl (6.2-12.0); Monocyte# 1.34 X10^3/uL; NRBC Flagged by Analyzer 0 % (0-5); Neutrophil # 9.48 X10^3/uL (2.7-7.7); Neutrophil % 70.7 % (47-70); Platelet Count 182 K/mm3 (150-450); RBC Distribution Width CV 12.6 % (11.6-14.6); RBC Distribution Width SD 42.8 fl (35.1-43.9); Red Blood Count 4.09 M/mm3 (4.6-6.2); White Blood Count 13.4 K/mm3 (4.4-11.0)
[2022-12-18] MEDS: 0.9% Normal Saline 1,000 ML 999 ML IV (15:05)
--- NOTE | 2022-12-18 15:10 | RAD_ITS ---
STUDY: XR Chest 1 View 12/18/2022 3:08 PM REASON FOR EXAM: Male, 72 years old. chest pain COMPARISON: 10/31/2019 TECHNIQUE: XR Chest 1 View FINDINGS: There is no demonstrated pleural abnormality. Normal heart size. Normal mediastinum. Normal lianna. Prominent appearing increased interstitial lung markings. Normal visualized pulmonary arteries. There is atherosclerotic calcification of the aortic arch with tortuosity. There are diffuse degenerative changes of the visualized thoracic spine. There is degenerative osteoarthritis of the bilateral shoulders. There are no acute findings of the upper abdomen. RAD/Chest 1 View (Portable) IMPRESSION: There are no acute findings. Electronically Signed: Lavon Magallon MD at 15:23 EDT ,
[2022-12-18 15:30] LABS: Anion Gap 6 (5-15); BUN 20 mg/dL (7-18); BUN/Creat Ratio 23.8 RATIO (10-20); Calcium,Total 8.1 mg/dL (8.5-10.1); Chloride 98 mmol/L (98-107); Creatinine, Serum 0.84 mg/dL (0.70-1.30); EST Glomerular Filtration Rate 95 mL/min (>60); Est Glom Filt Rate - Afr Amer 115 mL/min (>60); Estimated Creatinine Clearance 70.68 ml/min; Glucose 201 mg/dL (74-106); Potassium 3.8 mmol/L (3.5-5.1); Sodium Level 133 mmol/L (136-145); Troponin-I HS 3 pg/mL (3.0-78.0)
[2022-12-18 15:35] LABS: Bacteria 0 SEEN /hpf (None Seen); Color, Urine Yellow (Yellow); Glucose, Dipstick 50 mg/dl (Normal); Ketone-Dipstick Negative (Negative); Leukocyte Esterase-Dipstick Negative /ul (Negative); Mucous, Urine 0 SEEN /hpf (<or=2+); Nitrite-Dipstick Negative (Negative); Occult Blood-Urine Negative /ul (Negative); Protein-Dipstick Negative (Negative); Red Blood Cells-Urine 0 SEEN /hpf (0-5); Specific Gravity, Urine 1.015 (1.002-1.030); Urine Bilirubin Dipstick Negative (Negative); Urine Clarity Clear (Clear); Urine Urobilinogen Normal (Normal); White Blood Cells 0 SEEN /hpf (0-5)
[2022-12-18 15:42] LABS: Squamous Epithelial Cells - UA 0-5 SEEN /hpf (0-5)
[2022-12-18 16:35] VITALS: BP 184/88; PULSE 71; RESP 18; O2SAT 95
[2022-12-18 17:47] VITALS: O2SAT 98
== END 2022-12-18 17:48 | disposition home or self-care (01) ==
PROVIDERS: Emergency Provider Emergency Medicine; PCP Family Medicine Geriatric Medicine; Visit Provider Emergency Medicine
DX: U07.1 COVID-19 (principal); I10 Essential (primary) hypertension; Z79.899 Other long term (current) drug therapy; Z87.891 Personal history of nicotine dependence
CPT/HCPCS: 71045; 80048; 81001; 84484; 85025; 93005; 96360; 99284; J7030; A4216

== ENCOUNTER → 2022-12-20 | Outpatient (CLI) | payer MEDICARE, MEDICAID, SELFPAY ==
[2022-12-20 18:03] LABS: T3 Uptake 40 % (33-40); T4 Free Direct 1.46 ng/dL (0.76-1.46)
[2022-12-20 18:06] LABS: T7 / Free Thyroxin Index 5.8 (1.4-4.5)
== END | disposition home or self-care (01) ==
LOC: POLAB3 15:56
PROVIDERS: PCP Family Medicine Geriatric Medicine; Visit Provider Family Medicine Geriatric Medicine
DX: E05.90 Thyrotoxicosis, unspecified without thyrotoxic crisis or storm (principal)
CPT/HCPCS: 36415; 84439; 84479

== ENCOUNTER → 2023-06-20 | Outpatient (CLI) | payer MEDICARE, MEDICAID, SELFPAY ==
[2023-06-20 12:43] LABS: Absolute Lymphocyte Count 2.71 X10^3/uL (0.83-4.51); Absolute Neutrophil Count 4.2 X10^3/uL (2.0-7.7); Basophil# 0.06 X10^3/uL; Basophil% 0.8 % (0-1); Eosinophil# 0.14 X10^3/uL; Eosinophils% 1.8 % (0-5); Hematocrit 44.8 % (40-54); Hemoglobin 15.2 g/dL (13.0-16.5); Lymphocyte # 2.71 X10^3/ul (0.83-4.51); Lymphocyte % 34.1 % (19-41); Mean Corp Hgb Conc 33.9 g/dL (32-36); Mean Corpuscular Volume 88.4 fL (80-94); Mean Platelet Vol. 10.9 fl (6.2-12.0); Monocyte# 0.82 X10^3/uL; Monocyte% 10.3 % (0-10); NRBC Flagged by Analyzer 0 % (0-5); Neutrophil # 4.16 X10^3/uL (2.7-7.7); Neutrophil % 52.4 % (47-70); Platelet Count 221 K/mm3 (150-450); RBC Distribution Width CV 12.5 % (11.6-14.6); Red Blood Count 5.07 M/mm3 (4.6-6.2); White Blood Count 7.9 K/mm3 (4.4-11.0)
[2023-06-20 13:14] LABS: Vitamin D,25 Hydroxy 25.3 ng/mL
[2023-06-20 14:09] LABS: ALB/GLOB Ratio 0.8 RATIO (0.9-2.4); AST(SGOT) 31 U/L (15-37); Alanine Aminotransfer ALT/SGPT 55 U/L (16-61); Albumin, Serum 3.5 g/dL (3.2-5.0); Alkaline Phosphatase 62 U/L (45-117); Anion Gap 7 (5-15); BUN 19 mg/dL (7-18); BUN/Creat Ratio 25.2 RATIO (10-20); Calcium,Total 9.5 mg/dL (8.5-10.1); Chloride 93 mmol/L (98-107); Creatinine, Serum 0.76 mg/dL (0.70-1.30); EST Glomerular Filtration Rate 107 mL/min (>60); Est Glom Filt Rate - Afr Amer 130 mL/min (>60); Globulin 4.2 g/dL (2.2-4.2); Glucose 164 mg/dL (74-106); Potassium 4.4 mmol/L (3.5-5.1); Protein, Total 7.7 g/dL (6.4-8.2); Sodium Level 129 mmol/L (136-145)
== END | disposition home or self-care (01) ==
LOC: POLAB3 11:17
PROVIDERS: PCP Family Medicine Geriatric Medicine; Visit Provider Family Medicine Geriatric Medicine
DX: I10 Essential (primary) hypertension (principal); E11.65 Type 2 diabetes mellitus with hyperglycemia; E55.9 Vitamin D deficiency, unspecified
CPT/HCPCS: 36415; 80053; 82306; 84443; 85025

== ENCOUNTER → 2023-06-28 | Outpatient (CLI) | payer MEDICARE, MEDICAID, SELFPAY ==
[2023-06-28 10:47] LABS: Anion Gap 8 (5-15); BUN 16 mg/dL (7-18); BUN/Creat Ratio 17.2 RATIO (10-20); Chloride 96 mmol/L (98-107); Creatinine, Serum 0.93 mg/dL (0.70-1.30); EST Glomerular Filtration Rate 84 mL/min (>60); Est Glom Filt Rate - Afr Amer 102 mL/min (>60); Glucose 236 mg/dL (74-106); Potassium 4.3 mmol/L (3.5-5.1); Sodium Level 132 mmol/L (136-145)
== END | disposition home or self-care (01) ==
LOC: LAB 08:57
PROVIDERS: PCP Family Medicine Geriatric Medicine; Referring Provider Family Medicine Geriatric Medicine; Visit Provider Family Medicine Geriatric Medicine
DX: I10 Essential (primary) hypertension (principal); R53.83 Other fatigue
CPT/HCPCS: 36415; 80048

== ENCOUNTER → 2023-10-04 | Outpatient (CLI) | payer MEDICARE, MEDICAID, SELFPAY ==
[2023-10-04 15:04] LABS: Absolute Lymphocyte Count 3.19 X10^3/uL (0.83-4.51); Absolute Neutrophil Count 4.7 X10^3/uL (2.0-7.7); Basophil# 0.07 X10^3/uL; Basophil% 0.8 % (0-1); Eosinophil# 0.12 X10^3/uL; Eosinophils% 1.4 % (0-5); Hematocrit 41.5 % (40-54); Hemoglobin 14.5 g/dL (13.0-16.5); Lymphocyte # 3.19 X10^3/ul (0.83-4.51); Lymphocyte % 36.1 % (19-41); Mean Corp Hgb Conc 34.9 g/dL (32-36); Mean Corpuscular Hgb 30.3 pg (27.0-32.0); Mean Corpuscular Volume 86.6 fL (80-94); Mean Platelet Vol. 10.7 fl (6.2-12.0); Monocyte# 0.77 X10^3/uL; Monocyte% 8.7 % (0-10); NRBC Flagged by Analyzer 0 % (0-5); Neutrophil # 4.66 X10^3/uL (2.7-7.7); Neutrophil % 52.7 % (47-70); Platelet Count 198 K/mm3 (150-450); RBC Distribution Width CV 12.6 % (11.6-14.6); RBC Distribution Width SD 39.5 fl (35.1-43.9); Red Blood Count 4.79 M/mm3 (4.6-6.2); White Blood Count 8.8 K/mm3 (4.4-11.0)
[2023-10-04 15:47] LABS: ALB/GLOB Ratio 0.9 RATIO (0.9-2.4); AST(SGOT) 33 U/L (15-37); Alanine Aminotransfer ALT/SGPT 43 U/L (16-61); Albumin, Serum 3.5 g/dL (3.2-5.0); Alkaline Phosphatase 63 U/L (45-117); Anion Gap 8 (5-15); BUN 18 mg/dL (7-18); BUN/Creat Ratio 19.8 RATIO (10-20); Calcium,Total 8.9 mg/dL (8.5-10.1); Chloride 97 mmol/L (98-107); Creatinine, Serum 0.91 mg/dL (0.70-1.30); EST Glomerular Filtration Rate 87 mL/min (>60); Est Glom Filt Rate - Afr Amer 105 mL/min (>60); Glucose 155 mg/dL (74-106); Potassium 4.3 mmol/L (3.5-5.1); Protein, Total 7.5 g/dL (6.4-8.2); Sodium Level 133 mmol/L (136-145); Thyroid Stim Hormone (TSH) 0.46 uIU/mL (0.358-3.74)
== END | disposition home or self-care (01) ==
LOC: LAB 13:47
PROVIDERS: PCP Family Medicine Geriatric Medicine; Referring Provider Family Medicine Geriatric Medicine; Visit Provider Family Medicine Geriatric Medicine
DX: I10 Essential (primary) hypertension (principal); E78.5 Hyperlipidemia, unspecified
CPT/HCPCS: 36415; 80053; 84443; 85025

== ENCOUNTER 2023-10-31 16:51 | Emergency (ER) | payer MEDICARE, MEDICAID, SELFPAY ==
[2023-10-31 16:53] VITALS: BP 233/107; PULSE 74; RESP 18; TEMP 36.4; O2SAT 96; BMI 28.2
--- NOTE | 2023-10-31 17:04 | EKG12_ITS ---
Test Reason : CLEARENCE Blood Pressure : / mmHG Vent. Rate : 068 BPM Atrial Rate : 068 BPM P-R Int : 356 ms QRS Dur : 094 ms QT Int : 364 ms P-R-T Axes : 044 032 057 degrees QTc Int : 387 ms Sinus rhythm with 1st degree A-V block Otherwise normal ECG Confirmed by LILLIAN HURLEY, ANITA ([id number]), assignment editor SHERRILL LANDAVERDE ([id number]) on 11/02/2023 8:22:59 AM Referred By: Confirmed By:ANITA SNYDER MD
--- NOTE | 2023-10-31 17:04 | EX.ED.VIS.PS ---
HPI HPI - Psych History of Present Illness Chief Complaint: Mental Health Detail of Chief Complaint: Psychosis/homicidal ideation Informant: patient and mental health staff Narrative Narrative: Patient brought to the emergency department with police escort from residential. Patient has history of mental illness. Apparently he has been threatening staff and threatening to kill them. Patient denies this to me. He denies auditory visual hallucinations. He denies suicidal ideations. Denies any physical complaints. He is a poor historian with paucity of speech. Patient presents and was pink slipped by crisis. [facility] Medical History (Updated 10/31/23 @ 19:[address] Rodríguez Conn, DO) Anxiety GERD (gastroesophageal reflux disease) Schizophrenia Hyperlipidemia COPD (chronic obstructive pulmonary disease) Diabetes Hypertension Home Medications ?Medication ?Instructions ?Recorded ?Last Taken ?Type fluticasone propionate 50 2 spray DAILY 07/05/16 10/31/23 History mcg/actuation nasal spray,suspension risperidone 4 mg tablet (Risperdal) 4 mg PO BID 07/05/16 10/31/23 History sennosides 8.6 mg-docusate sodium 1 ea PO BID 07/05/16 10/31/23 History 50 mg tablet (Doc-Q-Lax) zolpidem 10 mg tablet (Ambien) 10 mg PO QHS 07/05/16 10/30/23 History lisinopril 20 1 ea PO BID 07/09/18 10/31/23 History mg-hydrochlorothiazide 12.5 mg tablet lorazepam 0.5 mg tablet 0.5 mg PO .COMPLEX 07/09/18 10/27/23 History benztropine 1 mg tablet 1 mg PO TID 10/31/19 10/31/23 History risperidone 1 mg tablet 1 mg PO DAILY 10/31/19 10/31/23 History albuterol sulfate 90 mcg/actuation 1 - 2 puff inhalation Q4H PRN PRN 11/03/19 Unknown Rx aerosol inhaler dyspnea, wheezing ##1 beclomethasone dipropionate 80 2 inh inhalation BID 12/10/20 10/31/23 History mcg/actuation HFA breath activated aerosol (Qvar RediHaler) epinephrine 0.3 mg/0.3 mL 0.3 mg IM Q30M PRN Allergic 12/10/20 Unknown History injection, auto-injector Reaction famotidine 40 mg tablet 40 mg PO DAILY 12/10/20 10/31/23 History ibuprofen 400 mg tablet 400 mg PO Q6H PRN pain #20 tabs 12/10/20 Unknown Rx lidocaine 4 % topical patch 1 patch topical DAILY PRN pain #10 12/10/20 Unknown Rx (Salonpas (lidocaine)) ea metoprolol succinate 200 mg 200 mg PO DAILY 12/10/20 10/31/23 History tablet,extended release 24 hr sodium chloride 1 gram tablet 1,000 mg PO BID 12/10/20 10/31/23 History amlodipine 2.5 mg tablet 2.5 mg PO DAILY 10/31/23 10/30/23 History buspirone 10 mg tablet 10 mg PO BID 10/31/23 10/31/23 History metformin 500 mg tablet,extended 500 mg PO BID 10/31/23 10/31/23 History release 24 hr plecanatide 3 mg tablet (Trulance) 3 mg PO DAILY 10/31/23 10/31/23 History valsartan 320 1 tab PO DAILY 10/31/23 10/31/23 History mg-hydrochlorothiazide 25 mg tablet Allergy/AdvReac Type Severity Reaction Status Date / Time shellfish derived Allergy Anaphylaxis Verified 10/31/23 16:53 Social History Smoking Status: Former smoker ROS ROS ED Review of Systems ROS Unobtainable: other Constitutional Constitutional ED: Reports lethargy; Denies chills, fever(s), sweats or weight loss Eyes Eyes: Denies blurry vision, change in vision or diplopia ENT ENT ED: Denies rhinorrhea or sore throat Cardiovascular Cardiovascular: Denies chest pain, orthopnea or racing heartbeat Respiratory/Chest Respiratory/Chest: Denies cough, dyspnea, dyspnea on exertion, orthopnea or sputum Gastrointestinal Gastrointestinal: Denies abdominal pain, diarrhea, nausea or vomiting Genitourinary Genitourinary ED: Denies dysuria, hematuria or urinary frequency Musculoskeletal Musculoskeletal: Denies arthralgias, back pain, myalgias or neck pain Integumentary Denies abscess, Abrasions or rash Neurologic Neurologic: Denies headache(s) or weakness Psychiatric Psychiatric: Reports other Details: Homicidal ideation, delusions ; Denies anxiety, depression or suicidal thoughts Endocrine Endocrinology: Denies polydipsia, polyphagia or polyuria Hematologic/Lymphatic Hematologic/Lymphatic: Denies easy bleeding, easy bruising or lymphadenopathy Allergic/Immunologic Allergic/Immunologic ED: Denies mouth swelling, tongue swelling or urticaria EXAM Physical Exam Const Vital Signs: 10/31/23 16:53 10/31/23 17:52 10/31/23 18:52 Temperature 97.6 F L 97.1 F L 97.4 F L Temperature Source Temporal Temporal Temporal Pulse Rate 74 72 76 Respiratory Rate 18 16 18 Blood Pressure 233/107 H 157/98 H 154/96 H Blood Pressure Mean 149 117 115 Pulse Ox 96 97 99 Oxygen Delivery Method Room Air Room Air Room Air Positive well nourished and well developed General Appearance ED: well developed and NAD HEENT Reports TM's clear and moist mucous membranes normocephalic and atraumatic; Negative for trauma or tenderness Tympanic Membrane ED: Yes TM's clear Eyes PERRL and EOMs intact bilaterally General Eye ED: Negative for pale conjunctiva or scleral icterus Neck no lymphadenopathy, supple and no JVD General: Negative for tenderness Chest Wall inspection of chest normal and palpation of chest normal Chest: Negative for tenderness Resp normal respiratory effort and clear to auscultation bilaterally Effort and Inspection: Negative for respiratory distress or pain with movement Auscultation: Negative for rhonchi, wheezes or diminished lung sounds Cardio regular rate, regular rhythm, S1 normal heart sound, S2 normal heart sound and no murmurs Peripheral Pulses: pulses 2+ throughout GI normal to inspection, nondistended, normoactive bowel sounds, soft to palpation, non-tender, non-distended and no masses Back/Spine no CVA tenderness and no thoracic nor lumbar tenderness Extremity normal to inspection General Extremety ED: Negative for edema General Extremity: Negative for edema Neuro oriented x3, CN's II-XII intact bilaterally, no sensory deficits noted and gait normal Sensorium / Orientation: awake, alert, oriented to person, oriented to place and oriented to time Motor Exam: strength 5/5 throughout and strength abnormal Psych mental status grossly normal Skin no rashes or lesions noted and no wounds MDM MDM MDM Narrative Medical decision making narrative: Patient presents with pink slip after being assessed by crisis. It is felt he would benefit from admission to psychiatric facility for stabilization. He has a long history of mental health illness. Patient apparently has been threatening the staff and hallucinating. Basic lab work obtained was unremarkable including CBC and CMP. Urinalysis unremarkable. Talk screen was negative and alcohol was negative. Patient medically cleared. Crisis will make arrangements for placement to psychiatric facility for stabilization and further treatment. Care of patient turned over to evening physician awaiting placement and transfer to psychiatric facility for definitive care. Lab Data Attestation: I reviewed the patient's lab results. Labs: Laboratory Results - last 24 hr 10/31/23 10/31/23 17:21 18:30 WBC 8.4 RBC 4.55 L Hgb 13.8 Hct 39.4 L MCV 86.6 MCH 30.3 MCHC 35.0 RDW Std Deviation 39.5 RDW Coeff of Michelle 12.6 Plt Count 173 MPV 10.6 Immature Gran % (Auto) 0.200 Neut % (Auto) 50.2 Lymph % (Auto) 36.9 [place] % (Auto) 10.2 H Eos % (Auto) 1.8 Baso % (Auto) 0.7 Absolute Neuts (auto) 4.2 Absolute Lymphs (auto) 3.08 Nucleated RBC % 0 Sodium 133 L Potassium 3.6 Chloride 97 L Carbon Dioxide 30.0 Anion Gap 6 BUN 16 Creatinine 0.86 Estim Creat Clear Calc 74.59 Est GFR (MDRD) Af Amer 112 Est GFR (MDRD) Non-Af 92 BUN/Creatinine Ratio 18.6 Glucose 171 H Calcium 8.9 Total Bilirubin 0.80 AST 35 ALT 44 Alkaline Phosphatase 54 Total Protein 7.1 Albumin 3.5 Globulin 3.6 Albumin/Globulin Ratio 1.0 Urine Color Yellow Urine Clarity Clear Urine pH 6.0 Ur Specific [place] 1.010 Urine Protein Negative Urine Glucose (UA) 50 H Urine Ketones Negative Urine Occult Blood Negative Urine Nitrite Negative Urine Bilirubin Negative Urine Urobilinogen Normal Ur Leukocyte Esterase Negative Urine RBC 0 SEEN Urine WBC 0 SEEN Ur Squamous Epith Cells 0 SEEN Urine Bacteria 0 SEEN Urine Mucus 0 SEEN Urine Opiates Screen NEGATIVE Urine Methadone Screen NEGATIVE Ur Barbiturates Screen NEGATIVE Ur Phencyclidine Scrn NEGATIVE Ur Amphetamines Screen NEGATIVE MDMA (Ecstasy) Screen NEGATIVE U Benzodiazepines Scrn NEGATIVE Urine Cocaine Screen NEGATIVE U Cannabinoids Screen NEGATIVE Ur Drug Screen Comment Ethyl Alcohol < 3.0 EKG Initial EKG: Attestation: I personally reviewed and interpreted this EKG as follows: Comments: Sinus rhythm with ventricular rate of 68 bpm with first-degree AV block Discharge Plan Triage Chief Complaint: Mental Health ED Provider: Rodríguez Conn Dx/Rx/DC Orders Clinical Impression: Psychosis, Homicidal ideation Prescriptions: No Action risperidone [Risperdal] 4 MG tablet 4 mg PO BID sennosides-docusate sodium [Doc-Q-Lax] 1 EACH tablet 1 ea PO BID zolpidem [Ambien] 10 MG tablet 10 mg PO QHS fluticasone propionate 1 SPRAY spray,suspension 2 spray NASAL DAILY lisinopril-hydrochlorothiazide 1 EACH tablet 1 ea PO BID lorazepam 0.5 tablet 0.5 mg PO .COMPLEX Rx Instructions: 0.5 mg orally MONDAY AND MONDAY; benztropine 1 MG tablet 1 mg PO TID risperidone 1 MG tablet 1 mg PO DAILY Rx Instructions: IN AFTERNOON albuterol sulfate 1 PUFF inhaler 1 - 2 puff inhalation Q4H PRN PRN (Reason: dyspnea, wheezing) Qty: 1 0RF metoprolol succinate 200 mg Tablet Extended Release 24 Hr 200 mg PO DAILY famotidine 40 mg Tablet 40 mg PO DAILY sodium chloride 1 gram Tablet 1,000 mg PO BID epinephrine [Epi E-Z Pen] 0.3 mg/0.3 mL Auto-Injector 0.3 mg IM Q30M PRN (Reason: Allergic Reaction) Qvar RediHaler 80 mcg/actuation Hfa Aerosol Breath Activated 2 inh INHALATION BID ibuprofen 400 mg tablet 400 mg PO Q6H PRN (Reason: pain) Qty: 20 0RF lidocaine [Salonpas (lidocaine)] 4 % adhesive patch,medicated 1 patch topical DAILY PRN (Reason: pain) Qty: 10 0RF amlodipine 2.5 mg tablet 2.5 mg PO DAILY buspirone 10 mg tablet 10 mg PO BID metformin 500 mg tablet extended release 24 hr 500 mg PO BID valsartan-hydrochlorothiazide 320-25 mg tablet 1 tab PO DAILY Trulance 3 mg tablet 3 mg PO DAILY Primary Care Provider: Russell Koenig Chi Referrals: Russell Koenig Chi, MD [Primary Care Provider] - Print Language: Guinean Disposition Disposition: Psychiatric Hospital or Unit
[2023-10-31 17:30] LABS: Absolute Lymphocyte Count 3.08 X10^3/uL (0.83-4.51); Absolute Neutrophil Count 4.2 X10^3/uL (2.0-7.7); Basophil# 0.06 X10^3/uL; Basophil% 0.7 % (0-1); Eosinophil# 0.15 X10^3/uL; Eosinophils% 1.8 % (0-5); Hematocrit 39.4 % (40-54); Hemoglobin 13.8 g/dL (13.0-16.5); Lymphocyte # 3.08 X10^3/ul (0.83-4.51); Lymphocyte % 36.9 % (19-41); Mean Corpuscular Hgb 30.3 pg (27.0-32.0); Mean Corpuscular Volume 86.6 fL (80-94); Mean Platelet Vol. 10.6 fl (6.2-12.0); Monocyte# 0.85 X10^3/uL; Monocyte% 10.2 % (0-10); NRBC Flagged by Analyzer 0 % (0-5); Neutrophil # 4.19 X10^3/uL (2.7-7.7); Neutrophil % 50.2 % (47-70); Platelet Count 173 K/mm3 (150-450); RBC Distribution Width CV 12.6 % (11.6-14.6); RBC Distribution Width SD 39.5 fl (35.1-43.9); Red Blood Count 4.55 M/mm3 (4.6-6.2); White Blood Count 8.4 K/mm3 (4.4-11.0)
[2023-10-31 17:46] LABS: Alcohol, Blood (Medical)-Serum < 3.0 mg/dL
[2023-10-31 17:48] LABS: AST(SGOT) 35 U/L (15-37); Alanine Aminotransfer ALT/SGPT 44 U/L (16-61); Albumin, Serum 3.5 g/dL (3.2-5.0); Alkaline Phosphatase 54 U/L (45-117); Anion Gap 6 (5-15); BUN 16 mg/dL (7-18); BUN/Creat Ratio 18.6 RATIO (10-20); Calcium,Total 8.9 mg/dL (8.5-10.1); Chloride 97 mmol/L (98-107); Creatinine, Serum 0.86 mg/dL (0.70-1.30); EST Glomerular Filtration Rate 92 mL/min (>60); Est Glom Filt Rate - Afr Amer 112 mL/min (>60); Estimated Creatinine Clearance 74.59 ml/min; Globulin 3.6 g/dL (2.2-4.2); Glucose 171 mg/dL (74-106); Potassium 3.6 mmol/L (3.5-5.1); Protein, Total 7.1 g/dL (6.4-8.2); Sodium Level 133 mmol/L (136-145)
[2023-10-31 17:52] VITALS: BP 157/98; PULSE 72; RESP 16; TEMP 36.2; O2SAT 97
[2023-10-31 18:52] VITALS: BP 154/96; PULSE 76; RESP 18; TEMP 36.3; O2SAT 99
[2023-10-31 18:54] LABS: Bacteria 0 SEEN /hpf (None Seen); Mucous, Urine 0 SEEN /hpf (<or=2+); Red Blood Cells-Urine 0 SEEN /hpf (0-5); Squamous Epithelial Cells - UA 0 SEEN /hpf (0-5); White Blood Cells 0 SEEN /hpf (0-5)
[2023-10-31 18:59] LABS: Color, Urine Yellow (Yellow); Glucose, Dipstick 50 mg/dl (Normal); Ketone-Dipstick Negative (Negative); Leukocyte Esterase-Dipstick Negative /ul (Negative); Nitrite-Dipstick Negative (Negative); Occult Blood-Urine Negative /ul (Negative); Protein-Dipstick Negative (Negative); Urine Bilirubin Dipstick Negative (Negative); Urine Clarity Clear (Clear); Urine Urobilinogen Normal (Normal)
[2023-10-31 19:03] LABS: Amphetamine Urine VISTA NEGATIVE (<1000 ng/mL); Barbiturate Urine VISTA NEGATIVE (< 200 ng/mL); Benzodiazepine Urine VISTA NEGATIVE (< 200 ng/mL); Cocaine Urine VISTA NEGATIVE (< 300 ng/mL); Ecstacy Urine VISTA NEGATIVE (< 500 ng/mL); Methadone Urine VISTA NEGATIVE (< 300 ng/mL); PCP Urine VISTA NEGATIVE (< 25 ng/mL); THC Urine VISTA NEGATIVE (< 50 ng/mL); Vista UDS pH Range 5
[2023-11-01 03:00] VITALS: BP 160/99; PULSE 85; RESP 16; O2SAT 95
--- NOTE | 2023-11-01 05:41 | ED.RN ---
Report called to [facility], questions/concerns answered
[2023-11-01 08:02] VITALS: BP 160/99; PULSE 85; RESP 16; TEMP 36.6; O2SAT 96
== END 2023-11-01 08:04 ==
PROVIDERS: Emergency Provider Emergency Medicine; PCP Family Medicine Geriatric Medicine; Visit Provider Emergency Medicine
DX: F29 Unspecified psychosis not due to a substance or known physiological condition (principal); J44.9 Chronic obstructive pulmonary disease, unspecified; E11.9 Type 2 diabetes mellitus without complications; R45.850 Homicidal ideations; I10 Essential (primary) hypertension; Z79.51 Long term (current) use of inhaled steroids; Z79.899 Other long term (current) drug therapy; Z87.891 Personal history of nicotine dependence
CPT/HCPCS: 80053; 80307; 80320; 81001; 85025; 93005; 99284; J7030; A4216; G0480

== ENCOUNTER 2023-11-21 08:36 | Emergency (ER) | payer MEDICARE, MEDICAID, SELFPAY ==
[2023-11-21] VITALS (7 sets, daily range): BP systolic 140–163; BP diastolic 69–80; PULSE 74–85; RESP 16–20; TEMP 36.7; O2SAT 97–98; BMI 27.6
--- NOTE | 2023-11-21 08:59 | EX.ED.DYSGE1 ---
HPI History of Present Illness Chief Complaint: Alt LOC Narrative Narrative: 73-year-old male with history of anxiety and schizophrenia presenting with fannie. He has some flight of ideas. He is disorganized thinking. Patient repeatedly stating that when he mixed acid, water, electricity then the computer will decide what you do next. He also feels the computer controls everything. He is not redirectable. [facility] Medical History Anxiety GERD (gastroesophageal reflux disease) Schizophrenia Hyperlipidemia COPD (chronic obstructive pulmonary disease) Diabetes Hypertension Home Medications ?Medication ?Instructions ?Recorded ?Last Taken ?Type fluticasone propionate 50 2 spray intranasal DAILY NASAL 07/05/16 10/31/23 History mcg/actuation nasal CONGESTION spray,suspension beclomethasone dipropionate 80 2 inh inhalation BID COPD 12/10/20 10/31/23 History mcg/actuation HFA breath activated aerosol (Qvar RediHaler) epinephrine 0.3 mg/0.3 mL 0.3 mg IM Q30M PRN ALLERGIC 12/10/20 Unknown History injection, auto-injector REACTION amlodipine 2.5 mg tablet 2.5 mg PO 0900 BLOOD PRESSURE 10/31/23 10/30/23 History buspirone 10 mg tablet 10 mg PO BID ANXIETY 10/31/23 10/31/23 History docusate sodium 100 mg capsule 100 mg PO 0900 CONSTIPATION 11/21/23 Unknown History (Colace) donepezil 5 mg tablet 5 mg PO QHS COGNITIVE DECLINE 11/21/23 Unknown History famotidine 20 mg tablet 40 mg PO DAILY GERD 11/21/23 Unknown History fluticasone furoate 100 1 inh inhalation DAILY COPD 11/21/23 Unknown History mcg/actuation blister powder for inhalation (Arnuity Ellipta) hydrochlorothiazide 12.5 mg tablet 12.5 mg PO BID BLOOD PRESSURE 11/21/23 Unknown History lamotrigine 25 mg tablet 25 mg PO 09 SCHIZOPHRENIA 11/21/23 Unknown History lisinopril 20 mg tablet 20 mg PO 0900 BLOOD PRESSURE 11/21/23 Unknown History melatonin 3 mg tablet 3 mg PO QHS PRN INSOMNIA 11/21/23 Unknown History metformin 500 mg tablet 500 mg PO BID BLOOD SUGAR 11/21/23 Unknown History metoprolol succinate 100 mg 100 mg PO 0900 BLOOD PRESSURE 11/21/23 Unknown History tablet,extended release 24 hr quetiapine 50 mg tablet 50 mg PO BID SCHIZOPHRENIA 11/21/23 Unknown History sodium chloride 1,000 mg soluble 1,000 mg PO BID SUPPLEMENT 11/21/23 Unknown History tablet Allergy/AdvReac Type Severity Reaction Status Date / Time shellfish derived Allergy Anaphylaxis Verified 10/31/23 16:53 Social History Smoking Status: Former smoker ROS ROS ED Review of Systems ROS Unobtainable: due to mental condition and due to mental status EXAM Physical Exam Const Vital Signs: 11/21/23 08:37 11/21/23 10:37 11/21/23 12:00 Temperature 98.1 F Temperature Source Oral Pulse Rate 84 Respiratory Rate 18 20 H 18 Blood Pressure 163/80 H Blood Pressure Mean 107 Pulse Ox 97 Oxygen Delivery Method Room Air 11/21/23 13:27 Temperature Temperature Source Pulse Rate 81 Respiratory Rate 16 Blood Pressure 141/69 H Blood Pressure Mean 93 Pulse Ox 97 Oxygen Delivery Method Room Air Positive well nourished General Appearance ED: NAD HEENT Reports moist mucous membranes Eyes PERRL and EOMs intact bilaterally Chest Wall inspection of chest normal Resp normal respiratory effort and clear to auscultation bilaterally Auscultation: Negative for rales, rhonchi or wheezes Cardio regular rate and regular rhythm GI normal to inspection, nondistended, normoactive bowel sounds Neuro oriented x3 and CN's II-XII intact bilaterally Sensorium / Orientation: alert MDM MDM MDM Narrative Medical decision making narrative: Patient presenting with fannie. He is difficult to get any history from. He has flight of ideas and has very disorganized thinking. Patient will likely need placement. Will obtain appropriate screening labs for inpatient psychiatric care. Patient will be pink slipped. CT of the brain will be obtained due to patient's age. Received a call from the counseling center who stated that the patient was recently admitted to [facility]. He apparently returned back yesterday. They stated that he was previously alert and oriented but now does not appear to be. They are concerned he has a physical decline because he is not able to care for himself. He has urine and stool incontinence. He cannot dress himself. His CBC shows a normal white blood cell count 8.5. Hemoglobin 13.6. Platelets are normal at 226. Renal function and electrolytes appear to be normal limits. EtOH negative. Urine drug screen is negative. CT of the brain shows no acute process. [place] no organic cause for patient's symptoms. I do believe this is mental health related. I had the crisis counselor come talk to him and she agrees. Patient initially required Geodon to control him and he started acting up again he was given Haldol. Patient will be pink slipped. Impression: 1. Acute psychosis 2. Fannie Lab Data Labs: Laboratory Results - last 24 hr 11/21/23 11/21/23 11/21/23 09:15 09:20 09:30 WBC 8.5 RBC 4.46 L Hgb 13.6 Hct 39.4 L MCV 88.3 MCH 30.5 MCHC 34.5 RDW Std Deviation 39.8 RDW Coeff of Michelle 12.5 Plt Count 226 MPV 10.0 Immature Gran % (Auto) 0.400 Neut % (Auto) 62.1 Lymph % (Auto) 24.3 [place] % (Auto) 11.1 H Eos % (Auto) 1.4 Baso % (Auto) 0.7 Absolute Neuts (auto) 5.3 Absolute Lymphs (auto) 2.06 Nucleated RBC % 0 Sodium 133 L Potassium 3.9 Chloride 97 L Carbon Dioxide 29.0 Anion Gap 7 BUN 24 H Creatinine 0.98 Estim Creat Clear Calc 69.22 Est GFR (MDRD) Af Amer 95 Est GFR (MDRD) Non-Af 79 BUN/Creatinine Ratio 24.4 H Glucose 181 H Calcium 9.3 Urine Color Yellow Urine Clarity Clear Urine pH 6.0 Ur Specific [place] 1.010 Urine Protein Negative Urine Glucose (UA) 50 H Urine Ketones Negative Urine Occult Blood Negative Urine Nitrite Negative Urine Bilirubin Negative Urine Urobilinogen Normal Ur Leukocyte Esterase 25 H Urine RBC 0 SEEN Urine WBC 0-5 SEEN Ur Squamous Epith Cells 0 SEEN Urine Bacteria 0 SEEN Urine Mucus 0 SEEN Urine Opiates Screen NEGATIVE Urine Methadone Screen NEGATIVE Ur Barbiturates Screen NEGATIVE Ur Phencyclidine Scrn NEGATIVE Ur Amphetamines Screen NEGATIVE MDMA (Ecstasy) Screen NEGATIVE U Benzodiazepines Scrn NEGATIVE Urine Cocaine Screen NEGATIVE U Cannabinoids Screen NEGATIVE Ur Drug Screen Comment Ethyl Alcohol < 3.0 Radiography Diagnostic Testing: Clinical Impression(s) from Imaging Studies Brain CT 11/21/23 09:00 IMPRESSION: Chronic involutional changes of the brain. Electronically Signed: Yeison Boyd MD at 10:11 EDT , Discharge Plan Triage Chief Complaint: Alt LOC ED Provider: eHnrik Cordova Dx/Rx/DC Orders Prescriptions: No Action fluticasone propionate 1 SPRAY spray,suspension 2 spray intranasal DAILY epinephrine 0.3 mg/0.3 mL Auto-Injector 0.3 mg IM Q30M PRN (Reason: ALLERGIC REACTION ) Qvar RediHaler 80 mcg/actuation Hfa Aerosol Breath Activated 2 inh INHALATION BID amlodipine 2.5 mg tablet 2.5 mg PO 0900 buspirone 10 mg tablet 10 mg PO BID famotidine 20 mg tablet 40 mg PO DAILY metoprolol succinate 100 mg tablet extended release 24 hr 100 mg PO 0900 lisinopril 20 mg tablet 20 mg PO 0900 docusate sodium [Colace] 100 mg capsule 100 mg PO 0900 lamotrigine 25 mg tablet 25 mg PO 0900 donepezil 5 mg tablet 5 mg PO QHS hydrochlorothiazide 12.5 mg tablet 12.5 mg PO BID metformin 500 mg tablet 500 mg PO BID sodium chloride 1,000 mg tablet,soluble 1,000 mg PO BID quetiapine 50 mg tablet 50 mg PO BID Arnuity Ellipta 100 mcg/actuation blister with device 1 inh inhalation DAILY melatonin 3 mg tablet 3 mg PO QHS PRN (Reason: INSOMNIA ) Primary Care Provider: Russell Koenig Chi Referrals: Russell Koenig Chi, MD [Primary Care Provider] - Print Language: French
--- NOTE | 2023-11-21 09:00 | CT_ITS ---
STUDY: CT BRAIN WITHOUT CONTRAST REASON FOR EXAM: Male, 73 years old. ams RADIATION DOSAGE (If Supplied By Facility): CTDIvol = ( 47.06 ) mGy, DLP = ( 907.97 ) mGycm TECHNIQUE: Transaxial CT imaging of the brain was performed without administration of intravenous contrast material. Individualized dose optimization techniques were used for this CT. COMPARISON: 12/10/2020 FINDINGS: Normal soft tissue structures. Normal calvarium. There is mild cerebral atrophy with widening of the extra-axial spaces and ventricular dilatation. There are areas of decreased attenuation within the white matter tracts of the supratentorial brain, consistent with microvascular disease changes. Normal basal ganglia and thalami. Normal brainstem. Normal cerebellum. There is no intracranial hemorrhage. There are no findings of an acute ischemic infarction. Normal visualized paranasal sinuses. CT/Brain/Head without Contrast IMPRESSION: Chronic involutional changes of the brain. Electronically Signed: Yeison Boyd MD at 10:11 EDT ,
[2023-11-21] MEDS: Ziprasidone IM 20 MG/ML VIAL IM ×2 (09:23→17:28)
[2023-11-21 09:33] LABS: Absolute Lymphocyte Count 2.06 X10^3/uL (0.83-4.51); Absolute Neutrophil Count 5.3 X10^3/uL (2.0-7.7); Basophil# 0.06 X10^3/uL; Basophil% 0.7 % (0-1); Eosinophil# 0.12 X10^3/uL; Eosinophils% 1.4 % (0-5); Hematocrit 39.4 % (40-54); Hemoglobin 13.6 g/dL (13.0-16.5); Lymphocyte # 2.06 X10^3/ul (0.83-4.51); Lymphocyte % 24.3 % (19-41); Mean Corp Hgb Conc 34.5 g/dL (32-36); Mean Corpuscular Hgb 30.5 pg (27.0-32.0); Mean Corpuscular Volume 88.3 fL (80-94); Monocyte# 0.94 X10^3/uL; Monocyte% 11.1 % (0-10); NRBC Flagged by Analyzer 0 % (0-5); Neutrophil # 5.28 X10^3/uL (2.7-7.7); Neutrophil % 62.1 % (47-70); Platelet Count 226 K/mm3 (150-450); RBC Distribution Width CV 12.5 % (11.6-14.6); RBC Distribution Width SD 39.8 fl (35.1-43.9); Red Blood Count 4.46 M/mm3 (4.6-6.2); White Blood Count 8.5 K/mm3 (4.4-11.0)
[2023-11-21 09:48] LABS: Anion Gap 7 (5-15); BUN 24 mg/dL (7-18); BUN/Creat Ratio 24.4 RATIO (10-20); Calcium,Total 9.3 mg/dL (8.5-10.1); Chloride 97 mmol/L (98-107); Creatinine, Serum 0.98 mg/dL (0.70-1.30); EST Glomerular Filtration Rate 79 mL/min (>60); Est Glom Filt Rate - Afr Amer 95 mL/min (>60); Estimated Creatinine Clearance 69.22 ml/min; Glucose 181 mg/dL (74-106); Potassium 3.9 mmol/L (3.5-5.1); Sodium Level 133 mmol/L (136-145)
[2023-11-21 10:17] LABS: Alcohol, Blood (Medical)-Serum < 3.0 mg/dL
[2023-11-21 10:38] LABS: Bacteria 0 SEEN /hpf (None Seen); Mucous, Urine 0 SEEN /hpf (<or=2+); Red Blood Cells-Urine 0 SEEN /hpf (0-5); Squamous Epithelial Cells - UA 0 SEEN /hpf (0-5)
[2023-11-21 11:03] LABS: Amphetamine Urine VISTA NEGATIVE (<1000 ng/mL); Barbiturate Urine VISTA NEGATIVE (< 200 ng/mL); Benzodiazepine Urine VISTA NEGATIVE (< 200 ng/mL); Cocaine Urine VISTA NEGATIVE (< 300 ng/mL); Ecstacy Urine VISTA NEGATIVE (< 500 ng/mL); Methadone Urine VISTA NEGATIVE (< 300 ng/mL); PCP Urine VISTA NEGATIVE (< 25 ng/mL); THC Urine VISTA NEGATIVE (< 50 ng/mL); Vista UDS pH Range 6
[2023-11-21 11:04] LABS: Color, Urine Yellow (Yellow); Glucose, Dipstick 50 mg/dl (Normal); Ketone-Dipstick Negative (Negative); Leukocyte Esterase-Dipstick 25 /ul (Negative); Nitrite-Dipstick Negative (Negative); Occult Blood-Urine Negative /ul (Negative); Protein-Dipstick Negative (Negative); Urine Bilirubin Dipstick Negative (Negative); Urine Clarity Clear (Clear); Urine Urobilinogen Normal (Normal)
[2023-11-21 11:17] LABS: White Blood Cells 0-5 SEEN /hpf (0-5)
--- NOTE | 2023-11-21 11:38 | NURSING ---
FAXED CHART TO CRISIS
--- NOTE | 2023-11-21 12:46 | NURSING ---
MELISSA, CRISIS, IN ROOM
[2023-11-21] MEDS: Haloperidol Lactate 5 MG/ML Vial 4 MG IM (13:29)
--- NOTE | 2023-11-21 13:33 | ED.RN ---
Pt. becoming agitated, will not stay in beg. Has come out to the desk several times asking for dinner in 30 minutes. Lunch tray has been ordered. When asked for patient to get back into bed pt. throws himself onto bed and flops around. Pt. given haldol for agitation, took medication willingly.
[2023-11-21] MEDS: Donepezil HCl 5 MG Tablet PO (21:01)
[2023-11-21] MEDS: QUEtiapine 25 MG Tablet 50 MG PO (21:01)
[2023-11-21] MEDS: hydroCHLOROthiazide 12.5mg 12.5 MG PO (21:01)
[2023-11-21] MEDS: busPIRone 5 MG Tablet 10 MG PO (21:01)
[2023-11-21] MEDS: Sodium Chloride 1 GM Tablet PO (21:01)
[2023-11-22] VITALS: BP 135/90; PULSE 78; RESP 15; TEMP 36.5; O2SAT 96
[2023-11-22 04:00] VITALS: BP 160/85; PULSE 76; RESP 18; O2SAT 96
[2023-11-22 08:00] VITALS: BP 175/95; PULSE 70; RESP 16; O2SAT 97
--- NOTE | 2023-11-22 09:36 | ED.RN ---
Counseling center called., Patient is still pending at [facility] and was declined at [facility]. They sent referrals to [facility] and [facility]
[2023-11-22] MEDS: Famotidine 20 MG Tablet 40 MG PO (09:49)
[2023-11-22] MEDS: QUEtiapine 25 MG Tablet 50 MG PO (09:49)
[2023-11-22] MEDS: Lisinopril 20 MG Tablet PO (09:49)
[2023-11-22] MEDS: amLODIPine 2.5 MG Tablet PO (09:50)
[2023-11-22] MEDS: metFORMIN HCl 500 MG Tablet PO ×2 (09:50→17:05)
[2023-11-22] MEDS: Metoprolol(XL)Succ 100 MG Tablet PO (09:50)
[2023-11-22] MEDS: lamoTRIgine 25 MG Tablet PO (09:50)
[2023-11-22] MEDS: Sodium Chloride 1 GM Tablet PO (09:50)
[2023-11-22] MEDS: hydroCHLOROthiazide 12.5mg 12.5 MG PO (09:50)
[2023-11-22] MEDS: Docusate Sodium 100 MG Capsule PO (09:50)
[2023-11-22] MEDS: busPIRone 5 MG Tablet 10 MG PO (09:50)
[2023-11-22 12:00] VITALS: BP 137/64; PULSE 78; RESP 17; O2SAT 98
--- NOTE | 2023-11-22 12:50 | ED.RN ---
Pt accepted at [facility]. Dr Nguyen on the [facility] nurse to nurse [phone] ext [phone] [facility] will be here to pick the patient up at 615.
--- NOTE | 2023-11-22 13:13 | ED.RN ---
Attempted to call [facility]. [employer] took patients ETA but the units phone went to voicemail.
[2023-11-22 15:57] VITALS: BP 165/88; PULSE 78; RESP 18; O2SAT 98
--- NOTE | 2023-11-22 16:55 | ED.RN ---
Report given to Marlena at [facility]
--- NOTE | 2023-11-22 16:59 | ED.RN ---
Report given to Marlena at [facility].
[2023-11-22 17:06] VITALS: BP 163/88; PULSE 78; RESP 17; TEMP 36.6; O2SAT 98
== END 2023-11-22 18:31 ==
PROVIDERS: Emergency Provider Student in an Organized Health Care Education/Training Program; PCP Family Medicine Geriatric Medicine; Visit Provider Student in an Organized Health Care Education/Training Program
DX: F23 Brief psychotic disorder (principal); F30.9 Manic episode, unspecified; J44.9 Chronic obstructive pulmonary disease, unspecified; E11.9 Type 2 diabetes mellitus without complications; Z87.891 Personal history of nicotine dependence; I10 Essential (primary) hypertension; E78.5 Hyperlipidemia, unspecified; F41.9 Anxiety disorder, unspecified; Z79.899 Other long term (current) drug therapy; Z79.51 Long term (current) use of inhaled steroids; Z79.84 Long term (current) use of oral hypoglycemic drugs; K21.9 Gastro-esophageal reflux disease without esophagitis
CPT/HCPCS: 70450; 80048; 80307; 81001; 82077; 85025; 96372; 99283; A4216; J3486

== ENCOUNTER 2024-01-12 10:42 | Observation (INO) | payer MEDICARE, SELFPAY ==
[2024-01-12] VITALS (9 sets, daily range): BP systolic 114–168; BP diastolic 62–97; PULSE 73–87; RESP 16–32; TEMP 36.4–37.6; O2SAT 94–98; BMI 26.9; BMI 26.4
--- NOTE | 2024-01-12 11:11 | EKG12_ITS ---
Test Reason : Blood Pressure : / mmHG Vent. Rate : 082 BPM Atrial Rate : 082 BPM P-R Int : 310 ms QRS Dur : 092 ms QT Int : 370 ms P-R-T Axes : 033 073 075 degrees QTc Int : 432 ms Sinus rhythm with 1st degree A-V block Otherwise normal ECG Confirmed by BEBETO CAMILO ([id number]), multimedia editor GABRIEL ESCOBEDO ([id number]) on 01/16/2024 8:28:38 AM Referred By: Confirmed By:BEBETO CAMILO
--- NOTE | 2024-01-12 11:12 | EDS_ITS ---
HPI History of Present Illness Chief Complaint: Fever Detail of Chief Complaint: Fever and low oxygen level at care home Informant: patient, EMS and SNF Narrative Narrative: Patient presents to the emergency department via EMS from care home with complaint of fever and low oxygen level up to 88%. Patient tested positive for COVID apparently today. Patient is a poor historian and really denies any complaints. He denies feeling short of breath. He denies chest pain. Denies vomiting. Patient is not sure why he is here [facility] Medical History Anxiety GERD (gastroesophageal reflux disease) Schizophrenia Hyperlipidemia COPD (chronic obstructive pulmonary disease) Diabetes Hypertension Home Medications ?Medication ?Instructions ?Recorded ?Last Taken ?Type fluticasone propionate 50 2 spray intranasal DAILY NASAL 07/05/16 10/31/23 His tory mcg/actuation nasal CONGESTION spray,suspension beclomethasone dipropionate 80 2 inh inhalation BID COPD 12/10/20 10/31/23 History mcg/actuation HFA breath activated aerosol (Qvar RediHaler)
--- NOTE | 2024-01-12 11:12 | EX.ED.DYSGE1 ---
HPI History of Present Illness Chief Complaint: Fever Detail of Chief Complaint: Fever and low oxygen level at detention Informant: patient, EMS and SNF Narrative Narrative: Patient presents to the emergency department via EMS from detention with complaint of fever and low oxygen level up to 88%. Patient tested positive for COVID apparently today. Patient is a poor historian and really denies any complaints. He denies feeling short of breath. He denies chest pain. Denies vomiting. Patient is not sure why he is here [facility] Medical History Anxiety GERD (gastroesophageal reflux disease) Schizophrenia Hyperlipidemia COPD (chronic obstructive pulmonary disease) Diabetes Hypertension Home Medications ?Medication ?Instructions ?Recorded ?Last Taken ?Type fluticasone propionate 50 2 spray intranasal DAILY NASAL 07/05/16 10/31/23 History mcg/actuation nasal CONGESTION spray,suspension beclomethasone dipropionate 80 2 inh inhalation BID COPD 12/10/20 10/31/23 History mcg/actuation HFA breath activated aerosol (Qvar RediHaler) epinephrine 0.3 mg/0.3 mL 0.3 mg IM Q30M PRN ALLERGIC 12/10/20 Unknown History injection, auto-injector REACTION amlodipine 2.5 mg tablet 2.5 mg PO 0900 BLOOD PRESSURE 10/31/23 10/30/23 History buspirone 10 mg tablet 10 mg PO BID ANXIETY 10/31/23 10/31/23 History docusate sodium 100 mg capsule 100 mg PO 0900 CONSTIPATION 11/21/23 Unknown History (Colace) donepezil 5 mg tablet 5 mg PO QHS COGNITIVE DECLINE 11/21/23 Unknown History famotidine 20 mg tablet 40 mg PO DAILY GERD 11/21/23 Unknown History fluticasone furoate 100 1 inh inhalation DAILY COPD 11/21/23 Unknown History mcg/actuation blister powder for inhalation (Arnuity Ellipta) hydrochlorothiazide 12.5 mg tablet 12.5 mg PO BID BLOOD PRESSURE 11/21/23 Unknown History lamotrigine 25 mg tablet 25 mg PO 0900 SCHIZOPHRENIA 11/21/23 Unknown History lisinopril 20 mg tablet 20 mg PO 0900 BLOOD PRESSURE 11/21/23 Unknown History melatonin 3 mg tablet 3 mg PO QHS PRN INSOMNIA 11/21/23 Unknown History metformin 500 mg tablet 500 mg PO BID BLOOD SUGAR 11/21/23 Unknown History metoprolol succinate 100 mg 100 mg PO 0900 BLOOD PRESSURE 11/21/23 Unknown History tablet,extended release 24 hr quetiapine 50 mg tablet 50 mg PO BID SCHIZOPHRENIA 11/21/23 Unknown History sodium chloride 1,000 mg soluble 1,000 mg PO BID SUPPLEMENT 11/21/23 Unknown History tablet Allergy/AdvReac Type Severity Reaction Status Date / Time shellfish derived Allergy Anaphylaxis Verified 10/31/23 16:53 Social History Smoking Status: Former smoker ROS ROS ED Review of Systems ROS Unobtainable: other Constitutional Constitutional ED: Reports fever(s) and lethargy; Denies chills, sweats or weight loss Eyes Eyes: Denies blurry vision, change in vision or diplopia ENT ENT ED: Denies rhinorrhea or sore throat Cardiovascular Cardiovascular: Denies chest pain, orthopnea or racing heartbeat Respiratory/Chest Respiratory/Chest: Denies cough, dyspnea, dyspnea on exertion, orthopnea or sputum Gastrointestinal Gastrointestinal: Denies abdominal pain, diarrhea, nausea or vomiting Genitourinary Genitourinary ED: Denies dysuria, hematuria or urinary frequency Musculoskeletal Musculoskeletal: Denies arthralgias, back pain, myalgias or neck pain Integumentary Denies abscess, Abrasions or rash Neurologic Neurologic: Denies headache(s) or weakness Psychiatric Psychiatric: Denies anxiety, depression or suicidal thoughts Endocrine Endocrinology: Denies polydipsia, polyphagia or polyuria Hematologic/Lymphatic Hematologic/Lymphatic: Denies easy bleeding, easy bruising or lymphadenopathy Allergic/Immunologic Allergic/Immunologic ED: Denies mouth swelling, tongue swelling or urticaria EXAM Physical Exam Const Vital Signs: 01/12/24 10:42 01/12/24 10:42 01/12/24 10:46 Temperature 99.6 F H 99.0 F Temperature Source Temporal Oral Pulse Rate 87 80 Respiratory Rate 21 H 24 H Respiratory Effort Normal Non-Labored Respiratory Pattern Normal Blood Pressure 149/84 H 144/77 H Blood Pressure Mean 105 99 Pulse Ox 95 96 Oxygen Delivery Method Room Air Room Air 01/12/24 11:59 01/12/24 12:01 Temperature 98.7 F 98.7 F Temperature Source Oral Oral Pulse Rate 79 83 Respiratory Rate 24 H 21 H Respiratory Effort Respiratory Pattern Blood Pressure 141/72 H 139/75 H Blood Pressure Mean 95 96 Pulse Ox 97 94 Oxygen Delivery Method Room Air Room Air Positive well nourished and well developed General Appearance ED: well developed and NAD HEENT Reports TM's clear and moist mucous membranes normocephalic and atraumatic; Negative for trauma or tenderness Tympanic Membrane ED: Yes TM's clear Eyes PERRL and EOMs intact bilaterally General Eye ED: Negative for pale conjunctiva or scleral icterus Neck no lymphadenopathy, supple and no JVD General: Negative for tenderness Chest Wall inspection of chest normal and palpation of chest normal Chest: Negative for tenderness Resp normal respiratory effort and clear to auscultation bilaterally Effort and Inspection: Negative for respiratory distress or pain with movement Auscultation: Negative for rhonchi, wheezes or diminished lung sounds Cardio regular rate, regular rhythm, S1 normal heart sound, S2 normal heart sound and no murmurs Peripheral Pulses: pulses 2+ throughout GI normal to inspection, nondistended, normoactive bowel sounds, soft to palpation, non-tender, non-distended and no masses Back/Spine no CVA tenderness and no thoracic nor lumbar tenderness Extremity normal to inspection General Extremety ED: Negative for edema General Extremity: Negative for edema Neuro oriented x3, CN's II-XII intact bilaterally, no sensory deficits noted and gait normal Sensorium / Orientation: awake, alert, oriented to person, oriented to place and oriented to time Motor Exam: strength 5/5 throughout and strength abnormal Psych mental status grossly normal Skin no rashes or lesions noted and no wounds MDM MDM MDM Narrative Medical decision making narrative: Patient brought to the emergency department for concern for hypoxemia and COVID infection. Patient himself is a very poor historian. IV line established. CBC with differential obtained showed a white count of 9.2 with hemoglobin 12.6 and platelet count of 155. Chemistry showed low sodium at 125 that is new. BUN 8 and creatinine 0.8. Urinalysis unremarkable. Lactate was elevated at 3.8. Chest x-ray showed no acute disease process. Blood cultures ordered. Patient was given a liter normal same fluid bolus. He was started on dexamethasone 6 mg IV. Discussed case with hospitalist will evaluate patient for admission for hyponatremia and lactic acidosis. Patient was not hypoxic during her stay in the emergency department Lab Data Attestation: I reviewed the patient's lab results. Labs: Laboratory Results - last 24 hr 01/12/24 11:24 WBC 9.2 RBC 4.17 L Hgb 12.6 L Hct 35.1 L MCV 84.2 MCH 30.2 MCHC 35.9 RDW Std Deviation 37.6 RDW Coeff of Michelle 12.5 Plt Count 155 MPV 11.1 Immature Gran % (Auto) 0.800 Neut % (Auto) 69.4 Lymph % (Auto) 14.5 L [place] % (Auto) 14.8 H Eos % (Auto) 0.2 Baso % (Auto) 0.3 Absolute Neuts (auto) 6.4 Absolute Lymphs (auto) 1.34 Nucleated RBC % 0 Sodium 125 L Potassium 3.9 Chloride 88 L Carbon Dioxide 26.0 Anion Gap 11 BUN 8 Creatinine 0.80 Estim Creat Clear Calc 77.19 Est GFR (MDRD) Af Amer 121 Est GFR (MDRD) Non-Af 100 BUN/Creatinine Ratio 10.0 Glucose 200 H Lactic Acid 3.8 H* Calcium 8.9 Urine Color Yellow Urine Clarity Clear Urine pH 6.5 Ur Specific [place] 1.005 Urine Protein Negative Urine Glucose (UA) 1000 H Urine Ketones Negative Urine Occult Blood Negative Urine Nitrite Negative Urine Bilirubin Negative Urine Urobilinogen Normal Ur Leukocyte Esterase Negative Urine RBC 0 SEEN Urine WBC 0 SEEN Ur Squamous Epith Cells 0 SEEN Urine Bacteria 0 SEEN Urine Mucus 0 SEEN Radiography Diagnostic Testing: Clinical Impression(s) from Imaging Studies Chest X-Ray 01/12/24 11:38 IMPRESSION: Degenerative changes, as described above. No demonstrated acute cardiopulmonary process. Electronically Signed: Sreedhar Peraza MD at 11:55 EDT Reading Location ID and State: [facility] / [place] , Service support , Discharge Plan Triage Chief Complaint: Fever ED Provider: Rodríguez Conn Dx/Rx/DC Orders Clinical Impression: Hyponatremia, Acidosis, lactic Prescriptions: No Action fluticasone propionate 1 SPRAY spray,suspension 2 spray intranasal DAILY epinephrine 0.3 mg/0.3 mL Auto-Injector 0.3 mg IM Q30M PRN (Reason: ALLERGIC REACTION ) Qvar RediHaler 80 mcg/actuation Hfa Aerosol Breath Activated 2 inh INHALATION BID amlodipine 2.5 mg tablet 2.5 mg PO 0900 buspirone 10 mg tablet 10 mg PO BID famotidine 20 mg tablet 40 mg PO DAILY metoprolol succinate 100 mg tablet extended release 24 hr 100 mg PO 0900 lisinopril 20 mg tablet 20 mg PO 0900 docusate sodium [Colace] 100 mg capsule 100 mg PO 0900 lamotrigine 25 mg tablet 25 mg PO 0900 donepezil 5 mg tablet 5 mg PO QHS hydrochlorothiazide 12.5 mg tablet 12.5 mg PO BID metformin 500 mg tablet 500 mg PO BID sodium chloride 1,000 mg tablet,soluble 1,000 mg PO BID quetiapine 50 mg tablet 50 mg PO BID Arnuity Ellipta 100 mcg/actuation blister with device 1 inh inhalation DAILY melatonin 3 mg tablet 3 mg PO QHS PRN (Reason: INSOMNIA ) Primary Care Provider: Jeremy Gaffney Referrals: Russell Koenig Chi, MD [Med Staff - Active Staff] - Print Language: Estonian Disposition Disposition: Acute Care Hospital
[2024-01-12 11:29] LABS: Bacteria 0 SEEN /hpf (None Seen); Mucous, Urine 0 SEEN /hpf (<or=2+); Red Blood Cells-Urine 0 SEEN /hpf (0-5); Squamous Epithelial Cells - UA 0 SEEN /hpf (0-5); White Blood Cells 0 SEEN /hpf (0-5)
[2024-01-12 11:31] LABS: Color, Urine Yellow (Yellow); Glucose, Dipstick 1000 mg/dl (Normal); Ketone-Dipstick Negative (Negative); Leukocyte Esterase-Dipstick Negative /ul (Negative); Nitrite-Dipstick Negative (Negative); Occult Blood-Urine Negative /ul (Negative); Protein-Dipstick Negative (Negative); Specific Gravity, Urine 1.005 (1.002-1.030); Urine Bilirubin Dipstick Negative (Negative); Urine Clarity Clear (Clear); Urine Urobilinogen Normal (Normal); Urine pH 6.5 (5.0 - 8.0)
[2024-01-12] MEDS: 0.9% Normal Saline (1000mL) 1,000 ML 150 ML IV (11:33)
--- NOTE | 2024-01-12 11:38 | RAD_ITS ---
STUDY: X-RAY CHEST REASON FOR EXAM: Male, 74 years old. dyspnea TECHNIQUE: Single AP portable view of the chest. COMPARISON: December 18, 2022 FINDINGS: The lungs are clear and expanded. There is no demonstrated pleural abnormality. Normal size heart. Normal mediastinum and lianna. Normal visualized pulmonary arteries. There is atherosclerotic calcification of the aortic arch with tortuosity. There are diffuse degenerative changes of the visualized thoracic spine. Normal visualized ribs, clavicles, and shoulders. There is no demonstrated abnormality of the visualized soft tissue structures of the upper abdomen. RAD/Chest 1 View (Portable) IMPRESSION: Degenerative changes, as described above. No demonstrated acute cardiopulmonary process. Electronically Signed: Sreedhar Peraza MD at 11:55 EDT ,
[2024-01-12 11:39] LABS: Absolute Lymphocyte Count 1.34 X10^3/uL (0.83-4.51); Absolute Neutrophil Count 6.4 X10^3/uL (2.0-7.7); Basophil# 0.03 X10^3/uL; Basophil% 0.3 % (0-1); Eosinophil# 0.02 X10^3/uL; Eosinophils% 0.2 % (0-5); Hematocrit 35.1 % (40-54); Hemoglobin 12.6 g/dL (13.0-16.5); Lymphocyte # 1.34 X10^3/ul (0.83-4.51); Lymphocyte % 14.5 % (19-41); Mean Corp Hgb Conc 35.9 g/dL (32-36); Mean Corpuscular Hgb 30.2 pg (27.0-32.0); Mean Corpuscular Volume 84.2 fL (80-94); Mean Platelet Vol. 11.1 fl (6.2-12.0); Monocyte# 1.36 X10^3/uL; Monocyte% 14.8 % (0-10); NRBC Flagged by Analyzer 0 % (0-5); Neutrophil % 69.4 % (47-70); Platelet Count 155 K/mm3 (150-450); RBC Distribution Width CV 12.5 % (11.6-14.6); RBC Distribution Width SD 37.6 fl (35.1-43.9); Red Blood Count 4.17 M/mm3 (4.6-6.2); White Blood Count 9.2 K/mm3 (4.4-11.0)
[2024-01-12 11:56] LABS: Anion Gap 11 (5-15); BUN 8 mg/dL (7-18); Calcium,Total 8.9 mg/dL (8.5-10.1); Chloride 88 mmol/L (98-107); EST Glomerular Filtration Rate 100 mL/min (>60); Est Glom Filt Rate - Afr Amer 121 mL/min (>60); Estimated Creatinine Clearance 77.19 ml/min; Glucose 200 mg/dL (74-106); Potassium 3.9 mmol/L (3.5-5.1); Sodium Level 125 mmol/L (136-145)
[2024-01-12 12:08] LABS: Lactic Acid 3.8 mmol/L (0.4-1.9)
[2024-01-12] MEDS: 0.9% Normal Saline (1000mL) 1,000 ML 999 ML IV (12:33)
[2024-01-12] MEDS: dexAMETHasone 10 MG/ML Vial 6 MG IV (12:33)
--- NOTE | 2024-01-12 14:23 | NURSING ---
pt sleeping sats 83% place o2 o2 while sleeping
[2024-01-12 15:30] LABS: Reflex Lactate? Y
[2024-01-12] MEDS: 0.9% Normal Saline (1000mL) 1,000 ML 100 ML IV (16:02)
[2024-01-12 16:23] LABS: Bedside Glucose 217 mg/dL (74-106)
[2024-01-12 16:25] LABS: Lactic Acid 1.9 mmol/L (0.4-1.9)
--- NOTE | 2024-01-12 17:24 | CASEMGMT ---
Discharge Planning Updated Roula Whitmore that patient wishes to return and will likely discharge tomorrow. SW updated and green sheet placed on chart. Chandrika Novak DC Planning Asst.
--- NOTE | 2024-01-12 17:25 | PCM.HP.STD ---
HPI - General General Date of Admission: 01/12/24 HPI Narrative YESENIA SAUCEDO, is a 74 M who presents to the hospital for senior living due to hypoxia. He is not a great historian, however chart review indicates that he was found to be 88% on room air at the senior living and when they tested him he tested positive for COVID so they sent him into the hospital. Here in the ER and on admission he was not hypoxic at all though he does drop when he sleeps which is likely a chronic issue for him. He was noted to be hyponatremic to 125 which is new and likely related to dehydration compounded by hydrochlorothiazide. He was started on IV Decadron therapy for his COVID secondary to the reported hypoxia at the senior living that has not been repeated here. [facility] Medical History Anxiety GERD (gastroesophageal reflux disease) Schizophrenia Hyperlipidemia COPD (chronic obstructive pulmonary disease) Diabetes Hypertension Home Medications ?Medication ?Instructions ?Recorded ?Last Taken ?Type fluticasone propionate 50 2 spray intranasal DAILY PRN NASAL 07/05/16 10/31/23 History mcg/actuation nasal CONGESTION spray,suspension docusate sodium 100 mg capsule 100 mg PO 0900 CONSTIPATION 11/21/23 Unknown History (Colace) donepezil 5 mg tablet 10 mg PO QHS COGNITIVE DECLINE 11/21/23 Unknown History famotidine 20 mg tablet 40 mg PO DAILY GERD 11/21/23 Unknown History fluticasone furoate 100 1 inh inhalation BID COPD 11/21/23 Unknown History mcg/actuation blister powder for inhalation (Arnuity Ellipta) hydrochlorothiazide 12.5 mg tablet 12.5 mg PO BID BLOOD PRESSURE 11/21/23 Unknown History lisinopril 20 mg tablet 40 mg PO BID BLOOD PRESSURE 11/21/23 Unknown History metformin 500 mg tablet 1,000 mg PO BID BLOOD SUGAR 11/21/23 Unknown History metoprolol succinate 100 mg 100 mg PO 0900 BLOOD PRESSURE 11/21/23 Unknown History tablet,extended release 24 hr albuterol sulfate 90 mcg/actuation 2 puff inhalation BID 01/12/24 Unknown History aerosol inhaler insulin lispro 100 unit/mL 2 unit subcut .ac 01/12/24 Unknown History subcutaneous pen olanzapine 15 mg tablet 15 mg PO QHS 01/12/24 Unknown History olanzapine 5 mg tablet 5 mg PO DAILY 01/12/24 Unknown History Allergy/AdvReac Type Severity Reaction Status Date / Time shellfish derived Allergy Anaphylaxis Verified 10/31/23 16:53 unable to obtain unable to obtain Social History Smoking Status: Former smoker ROS Constitutional Constitutional: Denies chills, fatigue, fever(s) or malaise Eyes Eyes: Denies blurry vision ENT HEENT: Denies headache(s) or nasal discharge Cardiovascular Cardiovascular: Denies chest pain, dyspnea on exertion or syncope Respiratory/Chest Respiratory/Chest: Denies cough, shortness of breath at rest or shortness of breath with exertion Gastrointestinal Gastrointestinal: Denies constipation, diarrhea, nausea or vomiting Genitourinary Genitourinary: Denies dysuria Neurologic Neurologic: Denies focal weakness, numbness or tremor(s) Psychiatric Psychiatric: Denies anxiety or depression Vital Signs Vital Signs Vital Signs: 01/12/24 10:42 01/12/24 10:42 01/12/24 10:46 Temperature 99.6 F H 99.0 F Temperature Source Temporal Oral Pulse Rate 87 80 Pulse Strength Respiratory Rate 21 H 24 H Respiratory Effort Normal Non-Labored Respiratory Depth Respiratory Pattern Normal Blood Pressure 149/84 H 144/77 H Blood Pressure Mean 105 99 Blood Pressure Source Blood Pressure Position Blood Pressure Location Pulse Ox 95 96 Oxygen Delivery Method Room Air Room Air 01/12/24 11:59 01/12/24 12:01 01/12/24 12:42 Temperature 98.7 F 98.7 F Temperature Source Oral Oral Pulse Rate 79 83 73 Pulse Strength Respiratory Rate 24 H 21 H 18 Respiratory Effort Respiratory Depth Respiratory Pattern Blood Pressure 141/72 H 139/75 H 153/75 H Blood Pressure Mean 95 96 101 Blood Pressure Source Blood Pressure Position Blood Pressure Location Pulse Ox 97 94 97 Oxygen Delivery Method Room Air Room Air 01/12/24 13:00 01/12/24 13:15 01/12/24 14:03 Temperature 97.6 F L 97.6 F L Temperature Source Temporal Pulse Rate 86 86 Pulse Strength Respiratory Rate 32 H 32 H Respiratory Effort Normal Respiratory Depth Normal Respiratory Pattern Normal Blood Pressure 164/83 H 164/83 H Blood Pressure Mean 110 110 Blood Pressure Source Blood Pressure Position Blood Pressure Location Pulse Ox 98 98 Oxygen Delivery Method Room Air Room Air 01/12/24 14:03 01/12/24 14:03 01/12/24 14:16 Temperature 98.8 F 98.8 F Temperature Source Oral Oral Pulse Rate 76 76 Pulse Strength Normal (2+) Respiratory Rate 16 16 Respiratory Effort Respiratory Depth Respiratory Pattern Blood Pressure 168/97 H 168/97 H Blood Pressure Mean 120 120 Blood Pressure Source Monitor Blood Pressure Position Sitting Blood Pressure Location Right Arm Pulse Ox 98 98 Oxygen Delivery Method Room Air Room Air Weight Weight: 174 lb Body Mass Index (BMI) 26.4 Physical Exam Narrative General: Alert, Oriented x2, Cooperative, No apparent distress HEENT: Atraumatic, PERRLA, EOMI, Normocephalic Oral: Moist Mucosa Neck: Supple, No JVD Lungs: Diminished, Normal air movement, No rhonchi, No wheeze, No rales Cardiovascular: Regular rate, Regular Rhythm, Normal S1, Normal S2, No murmurs Abdomen: Soft, Non Tender, Non-Distended, No Hepato-splenomegaly Extremities: No edema, Capillary Refill Less than 3 Seconds Skin: No rashes, No breakdown Musculoskeletal: No Tenderness to Palpation of Joints or Extremities Neurological: No focal neurological deficits, Motor Exam 5/5 strength throughout, Sensory exam intact to light touch and pain Psych/Mental Status: Normal Affect, Appropriate Results Lab / Micro Data 01/12/24 11:24 01/12/24 11:24 Labs: Laboratory Results - last 24 hr 01/12/24 11:24: WBC 9.2, RBC 4.17 L, Hgb 12.6 L, Hct 35.1 L, MCV 84.2, MCH 30.2, MCHC 35.9, RDW Std Deviation 37.6, RDW Coeff of Michelle 12.5, Plt Count 155, MPV 11.1, Immature Gran % (Auto) 0.800, Neut % (Auto) 69.4, Lymph % (Auto) 14.5 L, [place] % (Auto) 14.8 H, Eos % (Auto) 0.2, Baso % (Auto) 0.3, Absolute Neuts (auto) 6.4, Absolute Lymphs (auto) 1.34, Nucleated RBC % 0, Sodium 125 L, Potassium 3.9, Chloride 88 L, Carbon Dioxide 26.0, Anion Gap 11, BUN 8, Creatinine 0.80, Estim Creat Clear Calc 77.19, Est GFR (MDRD) Af Amer 121, Est GFR (MDRD) Non-Af 100, BUN/Creatinine Ratio 10.0, Glucose 200 H, Lactic Acid 3.8 H*, Calcium 8.9, Urine Color Yellow, Urine Clarity Clear, Urine pH 6.5, Ur Specific [place] 1.005, Urine Protein Negative, Urine Glucose (UA) 1000 H, Urine Ketones Negative, Urine Occult Blood Negative, Urine Nitrite Negative, Urine Bilirubin Negative, Urine Urobilinogen Normal, Ur Leukocyte Esterase Negative, Urine RBC 0 SEEN, Urine WBC 0 SEEN, Ur Squamous Epith Cells 0 SEEN, Urine Bacteria 0 SEEN, Urine Mucus 0 SEEN 01/12/24 15:50: Lactic Acid 1.9 01/12/24 16:00: POC Glucose 217 H Micro: Microbiology 01/12/24 11:24 Mucosa - Nasopharyngeal SARS-CoV-2, Influenza & RSV (PCR) - Final SARS-CoV-2 (COVID 19 PCR) Imaging Radiology Impression Chest X-Ray 01/12/24 11:38 IMPRESSION: Degenerative changes, as described above. No demonstrated acute cardiopulmonary process. Electronically Signed: Sreedhar Peraza MD at 11:55 EDT Reading Location ID and State: [address] [place] [address] , Service support , Assessment & Plan Assessment/Plan (1) Hyponatremia: PLAN: Plan 1. Hyponatremia ? Will continue with IV fluids ? Will hold his hydrochlorothiazide ? Will recheck in the morning ? This is likely due to a combination of dehydration and his hydrochlorothiazide use 2. COVID/asthma ? He has been transiently hypoxic therefore we will treat with Decadron 6 mg p.o. daily ? If he does have a significant rise in his blood sugars then we will discontinue steroids ? His lactic acid was elevated but he has no other signs of sepsis, this is likely due to dehydration compounded by metformin use ? Continue with IV fluids ? Can resume his home inhalers 3. Essential HTN ? Blood pressures are currently stable ? Continue with his lisinopril ? Will hold his hydrochlorothiazide ? Continue with metoprolol ? Will monitor make adjustments as necessary 4. DM2 ? Since his renal function is stable and will continue with IV fluids, will restart his metformin ? If any imaging studies need to be done with contrast the metformin will be discontinued 5. Dementia with behavioral issues ? Continue with donepezil and olanzapine ? Stable 6. GERD ? Stable ? Continue with Pepcid DVT: Lovenox 75 minutes was spent on direct patient care, including documentation as well as chart review and collaboration with colleagues Charges/Coding Visit Charges Inpatient E&M: 69829 Init Hosp L3
[2024-01-12] MEDS: Lisinopril 40 MG Tablet PO (20:41)
[2024-01-12] MEDS: OLANZapine 5 MG/TAB TAB.RAPDIS 15 MG PO (20:41)
[2024-01-12] MEDS: Donepezil HCl 10 MG Tablet PO (20:41)
[2024-01-13] VITALS (7 sets, daily range): BP systolic 131–178; BP diastolic 80–87; PULSE 65–88; RESP 16–18; TEMP 36.7–36.9; O2SAT 95–100
[2024-01-13] MEDS: 0.9% Normal Saline (1000mL) 1,000 ML 100 ML IV ×2 (02:20→09:14)
[2024-01-13 07:05] LABS: Absolute Lymphocyte Count 2.27 X10^3/uL (0.83-4.51); Basophil# 0.05 X10^3/uL; Basophil% 0.5 % (0-1); Eosinophil# 0.02 X10^3/uL; Eosinophils% 0.2 % (0-5); Hemoglobin 11.9 g/dL (13.0-16.5); Lymphocyte # 2.27 X10^3/ul (0.83-4.51); Lymphocyte % 21.2 % (19-41); Mean Corpuscular Hgb 29.5 pg (27.0-32.0); Mean Corpuscular Volume 86.8 fL (80-94); Mean Platelet Vol. 11.1 fl (6.2-12.0); Monocyte# 1.37 X10^3/uL; Monocyte% 12.8 % (0-10); NRBC Flagged by Analyzer 0 % (0-5); Neutrophil # 6.97 X10^3/uL (2.7-7.7); Neutrophil % 64.8 % (47-70); Platelet Count 170 K/mm3 (150-450); RBC Distribution Width CV 12.9 % (11.6-14.6); RBC Distribution Width SD 40.6 fl (35.1-43.9); Red Blood Count 4.03 M/mm3 (4.6-6.2); White Blood Count 10.7 K/mm3 (4.4-11.0)
[2024-01-13 07:36] LABS: Anion Gap 6 (5-15); BUN 16 mg/dL (7-18); BUN/Creat Ratio 21.7 RATIO (10-20); Calcium,Total 8.5 mg/dL (8.5-10.1); Chloride 101 mmol/L (98-107); Creatinine, Serum 0.74 mg/dL (0.70-1.30); EST Glomerular Filtration Rate 110 mL/min (>60); Est Glom Filt Rate - Afr Amer 133 mL/min (>60); Estimated Creatinine Clearance 77.19 ml/min; Glucose 151 mg/dL (74-106); Potassium 3.9 mmol/L (3.5-5.1); Sodium Level 134 mmol/L (136-145)
--- NOTE | 2024-01-13 07:40 | PCM.TXEXTCAR ---
Diet Diet Order/Speech Therapy: 01/12/24 13:39 Diet: Regular - General Food consistency:: Regular Liquid Consistency:: Regular/Thin Routine Orders/Code Status Routine Lab Work: CBC and BMP Code Status: Full Code Therapies Physical Therapy: Eval and Treat Occupational Therapy: Eval and Treat Problem/Diagnosis (1) Hyponatremia: Status: Acute Code(s): E87.1 - Hypo-osmolality and hyponatremia Allergies/Procedures Done in Hospital Allergies shellfish derived Allergy (Verified 10/31/23 16:53) Anaphylaxis Procedures: None Type of Care/Length of Stay Estimated LOS: Convalescent Care Less Than 30 days Type of Care Needed: Skilled Rehab Potential: Fair Prognosis: Fair Additional Orders/Day of Discharge Day of Discharge: 01/13/24 Discharge Plan Admission Admit Date/Time: 01/12/24 12:47 Attending Provider: Moustapha Clark Primary Care Provider: Jeremy Gaffney Discharge Orders/Prescriptions Prescriptions: New dexamethasone 4 mg Tablet 6 mg PO DAILY 8 Days Qty: 0 0RF Continued fluticasone propionate 1 SPRAY spray,suspension 2 spray intranasal DAILY PRN (Reason: NASAL CONGESTION ) famotidine 20 mg tablet 40 mg PO DAILY metoprolol succinate 100 mg tablet extended release 24 hr 100 mg PO 0900 Rx Instructions: hold for bp <90/60 lisinopril 20 mg tablet 40 mg PO BID Rx Instructions: hold if bp <90/60 docusate sodium [Colace] 100 mg capsule 100 mg PO 0900 donepezil 5 mg tablet 10 mg PO QHS metformin 500 mg tablet 1,000 mg PO BID Arnuity Ellipta 100 mcg/actuation blister with device 1 inh inhalation BID insulin lispro 100 unit/mL insulin pen 2 unit subcut .ac Rx Instructions: if BS >250 give 4 units olanzapine 5 mg tablet 5 mg PO DAILY olanzapine 15 mg tablet 15 mg PO QHS albuterol sulfate 90 mcg/actuation HFA aerosol inhaler 2 puff inhalation BID Held hydrochlorothiazide 12.5 mg tablet 12.5 mg PO BID Hold Instructions: Resume on 01/17/24. Referrals / Follow Up: Jeremy Gaffney MD [Primary Care Provider] - Russell Koenig Chi, MD [Med Staff - Active Staff] - Disposition Disposition (needs filled in before D/C Order can be placed): Retirement Facility
[2024-01-13] MEDS: Enoxaparin 40 MG/0.4 ML Syringe SC (09:11)
[2024-01-13] MEDS: Lisinopril 40 MG Tablet PO (09:12)
[2024-01-13] MEDS: Metoprolol(XL)Succ 100 MG Tablet PO (09:12)
[2024-01-13] MEDS: dexAMETHasone 4 MG Tablet 6 MG PO (09:12)
[2024-01-13] MEDS: Famotidine 20 MG Tablet 40 MG PO (09:13)
[2024-01-13] MEDS: OLANZapine 5 MG/TAB TAB.RAPDIS PO (09:13)
[2024-01-13] MEDS: metFORMIN HCl 1,000 MG Tablet 1000 MG PO (09:13)
[2024-01-13] MEDS: Docusate Sodium 100 MG Capsule PO (09:14)
--- NOTE | 2024-01-13 09:38 | NURSING ---
Gloria, nurse from [facility] called at shift change for update but 'fatemeh had not rounded at that time. Gloria gave me [phone] to call back with update and have called 4 times and no one answers phone
--- NOTE | 2024-01-13 10:36 | NURSING ---
5th call to jerad rojo unsuccessful, was placed on hold approx 10 minutes and never made contact
--- NOTE | 2024-01-13 14:05 | DS.PCM_ITS ---
Providers Date of Admission: 01/12/24 Primary Care Physician: Dr. Jeremy Gaffney MD Reason For Visit: HYPONATREMIA,LACTIC ACIDOSIS,COVID 19 INFECTION Diagnosis Discharge Diagnosis (1) Hyponatremia: Status: Acute Code(s): E87.1 - Hypo-osmolality and hyponatremia Plan 1. Hyponatremia ? Will continue with IV fluids ? Will hold his hydrochlorothiazide ? Will recheck in the morning ? This is likely due to a combination of dehydration and his hydrochlorothiazide use 2. COVID/asthma ? He has been transiently hypoxic therefore we will treat with Decadron 6 mg p.o. daily ? If he does have a significant rise in his blood sugars then we will discontinue steroids ? His lactic acid was elevated but he has no other signs of sepsis, this is likely due to dehydration compounded by metformin use ? Continue with IV fluids ? Can resume his home inhalers 3. Essential HTN ? Blood pressures are currently stable ? Continue with his lisinopril ? Will hold his hydrochlorothiazide ? Continue with metoprolol ? Will monitor make adjustments as necessary 4. DM2 ? Since his renal function is stable and will continue with IV fluids, will restart his metformin ? If any imaging studies need to be done with contrast the metformin will be discontinued 5. Dementia with behavioral issues ? Continue with donepezil and olanzapine ? Stable 6. GERD ? Stable ? Continue with Pepcid DVT: Lovenox 75 minutes was spent on direct patient care, including documentation as well as chart review and collaboration with colleagues Medications at Discharge Home Medications fluticasone propionate 50 mcg/actuation nasal spray,suspension 2 spray intranasal DAILY PRN NASAL CONGESTION 07/05/16 docusate sodium 100 mg capsule (Colace) 100 mg PO 0900 CONSTIPATION 11/21/23 donepezil 5 mg tablet 10 mg PO QHS COGNITIVE DECLINE 11/21/23 famotidine 20 mg tablet 40 mg PO DAILY GERD 11/21/23 fluticasone furoate 100 mcg/actuation blister powder for inhalation (Arnuity Ellipta) 1 inh inhalation BID COPD 11/21/23 hydrochlorothiazide 12.5 mg tablet 12.5 mg PO BID BLOOD PRESSURE 11/21/23 lisinopril 20 mg tablet 40 mg PO BID BLOOD PRESSURE 11/21/23 metformin 500 mg tablet 1,000 mg PO BID BLOOD SUGAR 11/21/23 metoprolol succinate 100 mg tablet,extended release 24 hr 100 mg PO 0900 BLOOD PRESSURE 11/21/23 albuterol sulfate 90 mcg/actuation aerosol inhaler 2 puff inhalation BID 01/12/24 insulin lispro 100 unit/mL subcutaneous pen 2 unit subcut .ac 01/12/24 olanzapine 15 mg tablet 15 mg PO QHS 01/12/24 olanzapine 5 mg tablet 5 mg PO DAILY 01/12/24 dexamethasone 4 mg tablet 6 mg (1.5 x 4 mg) PO DAILY 8 days #0 tabs 01/13/24 Hospital Course Operations None Procedures None Summary of Care Provided Minutes Spent on Discharge: Hospital Course: Per HPI: YESENIA SAUCEDO, is a 74 M who presents to the hospital for skilled nursing due to hypoxia. He is not a great historian, however chart review indicates that he was found to be 88% on room air at the skilled nursing and when they tested him he tested positive for COVID so they sent him into the hospital. Here in the ER and on admission he was not hypoxic at all though he does drop when he sleeps which is likely a chronic issue for him. He was noted to be hyponatremic to 125 which is new and likely related to dehydration compounded by hydrochlorothiazide. He was started on IV Decadron therapy for his COVID secondary to the reported hypoxia at the skilled nursing that has not been repeated here. Hospital Course: 1. Hyponatremia/COVID?74-year-old male presented to the hospital because he had transient hypoxia was not replicated on this admission and tested positive for COVID. And subsequent evaluations he was found to be hyponatremic which is what ultimately necessitated his admission, his hydrochlorothiazide was discontinued and he was given IV fluids. His sodium improved from 1 25-1 30 today and he was discharged back to the skilled nursing. I do recommend that we hold his hydrochlorothiazide for several more days and repeat blood work in the skilled nursing. As for his hypoxia that he does drop at night but this is likely a chronic issue, however since he was documented to have hypoxia at the skilled nursing we will treat him with 10 days of Decadron on discharge. Of note blood cultures were obtained for unclear reason as he was not septic and had no signs of any type of bacterial infection it does appear to be growing a gram-positive cocci I do recommend the skilled nursing call back in a couple of days to see if it is finalized however it is likely a contaminant. If he does spike a fever or develop other signs or symptoms of a bacterial infection would recommend returning to the ER, however at this time it is only growing in 1 out of 4 blood culture tubes. 2. Asthma, essential hypertension, type 2 diabetes, at the head and show with behavioral issues, GERD are all chronic medical conditions which complicate his care. His home medications were continued where appropriate Physical Exam Narrative General: Alert, Oriented x2, Cooperative, No apparent distress HEENT: Atraumatic, PERRLA, EOMI, Normocephalic Oral: Moist Mucosa Neck: Supple, No JVD Lungs: Diminished, Normal air movement, No rhonchi, No wheeze, No rales Cardiovascular: Regular rate, Regular Rhythm, Normal S1, Normal S2, No murmurs Abdomen: Soft, Non Tender, Non-Distended, No Hepato-splenomegaly Extremities: No edema, Capillary Refill Less than 3 Seconds Skin: No rashes, No breakdown Musculoskeletal: No Tenderness to Palpation of Joints or Extremities Neurological: No focal neurological deficits, Motor Exam 5/5 strength throughout, Sensory exam intact to light touch and pain Psych/Mental Status: Normal Affect, Appropriate Weight / BMI Weight Weight: 174 lb Body Mass Index (BMI) 26.4 ABG / Lab / Microbiology Data 01/13/24 06:47 01/13/24 06:47 Laboratory: Laboratory Results - last 24 hr 01/12/24 15:50: Lactic Acid 1.9 01/12/24 16:00: POC Glucose 217 H 01/13/24 06:47: WBC 10.7, RBC 4.03 L, Hgb 11.9 L, Hct 35.0 L, MCV 86.8, MCH 29.5, MCHC 34.0 D, RDW Std Deviation 40.6, RDW Coeff of Michelle 12.9, Plt Count 170, MPV 11.1, Immature Gran % (Auto) 0.500, Neut % (Auto) 64.8, Lymph % (Auto) 21.2, [place] % (Auto) 12.8 H, Eos % (Auto) 0.2, Baso % (Auto) 0.5, Absolute Neuts (auto) 7.0, Absolute Lymphs (auto) 2.27, Nucleated RBC % 0, Sodium 134 L, Potassium 3.9, Chloride 101, Carbon Dioxide 27.0, Anion Gap 6, BUN 16, Creatinine 0.74, Estim Creat Clear Calc 77.19, Est GFR (MDRD) Af Amer 133, Est GFR (MDRD) Non-Af 110, BUN/Creatinine Ratio 21.7 H, Glucose 151 H, Calcium 8.5 Microbiology: Microbiology 01/12/24 11:24 Blood Culture (Wb) - Right Forearm Bacteria Detection (PCR) - Final Coag Negative Staph 01/12/24 11:24 Blood Culture (Wb) - Right Forearm Blood Culture - Preliminary 01/12/24 11:24 Mucosa - Nasopharyngeal SARS-CoV-2, Influenza & RSV (PCR) - Final SARS-CoV-2 (COVID 19 PCR) Meaningful Use Info Meaningful Use Meaningful Use Diagnoses (Choose all that apply): None applicable Ischemic Stroke Statin Dosing Therapy Reference: STATIN DOSE THERAPY REFERENCE: * Patients > 75 years receive moderate or high dose statin therapy. * Patients 75 years or YOUNGER should receive HIGH intensity statin dose unless contraindicated. You will be required to document reason for non-treatment if statin daily dose does not meet guidelines. HIGH DOSE STATIN THERAPY DAILY Atorvastatin > than or = to 40 mg Rosuvastatin > than or = to 20 mg Amlodipine + Atorvastatin > than or = to 2.5/40 mg Ezetimibe + Simvastatin 10/80 mg Simvastatin 80mg Discharge Plan Admission Admit Date/Time: 01/12/24 12:47 Attending Provider: Moustapha Clark Primary Care Provider: Jeremy Gaffney Discharge Orders/Prescriptions Prescriptions: New dexamethasone 4 mg Tablet 6 mg PO DAILY 8 Days Qty: 0 0RF Continued fluticasone propionate 1 SPRAY spray,suspension 2 spray intranasal DAILY PRN (Reason: NASAL CONGESTION ) famotidine 20 mg tablet 40 mg PO DAILY metoprolol succinate 100 mg tablet extended release 24 hr 100 mg PO 0900 Rx Instructions: hold for bp <90/60 lisinopril 20 mg tablet 40 mg PO BID Rx Instructions: hold if bp <90/60 docusate sodium [Colace] 100 mg capsule 100 mg PO 0900 donepezil 5 mg tablet 10 mg PO QHS metformin 500 mg tablet 1,000 mg PO BID Arnuity Ellipta 100 mcg/actuation blister with device 1 inh inhalation BID insulin lispro 100 unit/mL insulin pen 2 unit subcut .ac Rx Instructions: if BS >250 give 4 units olanzapine 5 mg tablet 5 mg PO DAILY olanzapine 15 mg tablet 15 mg PO QHS albuterol sulfate 90 mcg/actuation HFA aerosol inhaler 2 puff inhalation BID Held hydrochlorothiazide 12.5 mg tablet 12.5 mg PO BID Hold Instructions: Resume on 01/17/24. Referrals / Follow Up: Jeremy Gaffney MD [Primary Care Provider] - Russell Koenig Chi, MD [Med Staff - Active Staff] - Disposition Disposition (needs filled in before D/C Order can be placed): [facility] Facility Charges/Coding Visit Charges Inpatient E&M: 78755 Disch Hosp >30min
== END 2024-01-13 13:25 | disposition skilled nursing facility (03) ==
LOC: ED 12:52 → MS3 13:04
PROVIDERS: Admitting Provider Family Medicine; Emergency Provider Emergency Medicine; PCP Family Medicine; Visit Provider Family Medicine
DX: U07.1 COVID-19 (principal); F03.90 Unspecified dementia, unspecified severity, without behavioral disturbance, psychotic disturbance, mood disturbance, and anxiety; J44.9 Chronic obstructive pulmonary disease, unspecified; Z79.4 Long term (current) use of insulin; E11.9 Type 2 diabetes mellitus without complications; E87.1 Hypo-osmolality and hyponatremia; E78.5 Hyperlipidemia, unspecified; Z79.51 Long term (current) use of inhaled steroids; I10 Essential (primary) hypertension; Z79.84 Long term (current) use of oral hypoglycemic drugs; Z87.891 Personal history of nicotine dependence; R09.02 Hypoxemia; J45.909 Unspecified asthma, uncomplicated; Z79.899 Other long term (current) drug therapy
CPT/HCPCS: 36415; 71045; 80048; 81001; 82962; 83605; 85025; 87040; 87077; 87149; 87186; 87631; 93005; 96361; 96372; 96374; 99221; 99284; J7030; A4216; G0378